=== PATIENT | female | born 1965 ===

== ENCOUNTER 2018-12-28 19:41 | Inpatient (IN) | payer OTHER ==
--- NOTE | 2018-12-28 20:06 | PDOC ---
History of Present Illness <Ava Mack - Last Filed: 12/28/18 23:56> - General History Source: Detention Records Exam Limitations: Language Barrier - History of Present Illness Initial Comments: 12/28/18 21:44 Noreen Copeland 53yF w PMHx Aguero syndrome, intellectual disability, malignant colon neoplasm s/p colostomy, T2DM, CKD presenting from [facility] with lethargy. Could not get history d/t pt non-communicative. Per charge nurse, noticed reduced activity today at halfway. Given tylenol for temp 100.8 and pain at front of L lower leg. Denied dyspnea, urinary/bowel changes. <Jay Coles - Last Filed: 12/29/18 01:53> - General Chief Complaint: Lightheaded Stated Complaint: DIZZINESS Time Seen by Provider: 12/28/18 20:05 Past History <Ava Mack - Last Filed: 12/28/18 23:56> <Jay Coles - Last Filed: 12/29/18 01:53> - Past Medical History Allergies/Adverse Reactions: Allergies Allergy/AdvReac Type Severity Reaction Status Date / Time azithromycin Allergy Verified 12/28/18 20:24 Penicillins Allergy Verified 12/28/18 20:24 Home Medications: Ambulatory Orders Acetaminophen [Tylenol] 650 mg PO QID 12/28/18 Brimonidine Tartrate [Alphagan 0.15% -] 1 drop OS DAILY 12/28/18 Cholecalciferol (Vitamin D3) [Vitamin D3] 1,000 unit PO DAILY 12/28/18 Clonazepam [Klonopin] 1 mg PO BID 12/28/18 Clotrimazole/Betamet Diprop [Lotrisone Cream (Small Tube)] 1 applic TP BID 12/28 Dorzolamide HCl [Trusopt 2%] 1 drop OD DAILY 12/28/18 Duloxetine HCl [Cymbalta -] 30 mg PO BID 12/28/18 Famotidine [Acid Controller] 10 mg PO HS 12/28/18 Folic Acid 1 mg PO DAILY 12/28/18 Golimumab [Simponi] 0.5 ml SQ DAILY 12/28/18 Hydrocortisone 2.5% Topical Cr [Anusol 2.5% Hc Cream -] 1 applic RC BID Hydrocortisone 2.5% Topical Cr [Anusol 2.5% Hc Cream -] 1 applic RC BID Ketoconazole 2% Shampoo [Nizoral 2% Shampoo -] 1 applic TP Q72H 12/28/18 Lamotrigine [Lamotrigine ER] 100 mg PO BID 12/28/18 Methenamine Hippurate [Hiprex [Nf] -] 1 gm PO BID 12/28/18 Olanzapine [Zyprexa] 20 mg PO HS 12/28/18 Omeprazole 20 mg PO BID 12/28/18 Oxcarbazepine 300 mg PO HS 12/28/18 Oxcarbazepine 600 mg PO DAILY 12/28/18 Oxybutynin Chloride [Oxybutynin Chloride ER] 5 mg PO DAILY 12/28/18 Sevelamer Carbonate 800 mg PO TID 12/28/18 Review of Systems - Review of Systems Able to Perform ROS?: No (non-communicable) <Jay Coles - Last Filed: 12/29/18 01:53> *Physical Exam - Vital Signs Last Vital Signs Temp Pulse Resp BP Pulse Ox 101.5 F H 100 H 20 96/62 100 12/28/18 20:42 12/28/18 20:03 12/28/18 20:03 12/28/18 20:03 12/28/18 21:00 <Ava Mack - Last Filed: 12/28/18 23:56> - Physical Exam HEENT: positive: TMs Normal, Pharynx Normal, Orbits (proptosis bilaterally, no orbit tenderness), Other (dry scaly rash over nares, ears bilaterally, L pupil 4mm, responsive to light / R pupil dilated 6mm, fixed). negative: Normal Voice (incomprehensible words), Pale Conjunctivae, Scleral Icterus (R), Scleral Icterus (L), Pharyngeal Erythema, Tonsillar Exudate, Tonsillar Erythema, Nasal Congestion, Rhinorrhea, TM Bulging, TM Dull, TM Erythema, Lesions, Excessive drooling, Thrush Neck: positive: Supple. negative: Tender, Rigid Respiratory/Chest: positive: Lungs Clear, Normal Breath Sounds. negative: Chest Tender, Respiratory Distress, Crackles, Rales, Rhonchi, Stridor, Wheezing Cardiovascular: positive: Regular Rhythm, Regular Rate, S1, S2. negative: Edema , Murmur Gastrointestinal/Abdominal: positive: Normal Bowel Sounds, Flat, Soft, Other ( eczematous rash lower abdomen w defined borders, ileostomy bag in place w/o leakage). negative: Tender, Organomegaly, Distended, Guarding Extremity: positive: Other (circular erythematous rash w raised borders L arm) Integumentary: positive: Warm Neurologic: positive: Respond to painful stimul, Disoriented, Other (opens eyes to command, can follow simple commands). negative: marble machine tender II-XII NML intact, Alert (alert to name, location) <Jay Coles - Last Filed: 12/29/18 01:53> ED Treatment Course - LABORATORY CBC & Chemistry Diagram: 12/28/18 20:15 12/28/18 20:15 - ADDITIONAL ORDERS Additional order review: Laboratory Results 12/28/18 12/28/18 12/28/18 21:15 20:50 20:15 PT with INR 15.20 H INR 1.28 H PTT (Actin FS) 29.7 Sodium Potassium Chloride Carbon Dioxide Anion Gap BUN Creatinine Est GFR (CKD-EPI)AfAm Est GFR (CKD-EPI)NonAf Random Glucose Lactic Acid 0.7 Calcium Total Bilirubin AST ALT Alkaline Phosphatase Creatine Kinase Troponin I Total Protein Albumin Urine Color Yellow Urine Appearance Turbid Urine pH 6.0 Ur Specific Rogers 1.014 Urine Protein 3+ H Urine Glucose (UA) Negative Urine Ketones Negative Urine Blood 3+ H Urine Nitrite Negative Urine Bilirubin Negative Urine Urobilinogen 0.2 Ur Leukocyte Esterase 3+ H Urine WBC (Auto) 648 Urine RBC (Auto) 65 Urine Casts (Auto) 16 U Pathogenic Cast Auto None seen U Epithel Cells (Auto) 2.6 Urine Bacteria (Auto) 17.6 12/28/18 12/28/18 20:15 20:15 PT with INR INR PTT (Actin FS) Sodium 137 Potassium 4.3 Chloride 106 Carbon Dioxide 23 Anion Gap 8 BUN 31.3 H Creatinine 1.6 H Est GFR (CKD-EPI)AfAm 42.20 Est GFR (CKD-EPI)NonAf 36.41 Random Glucose 138 H Lactic Acid Calcium 9.4 Total Bilirubin 0.4 AST 7 L ALT 10 L Alkaline Phosphatase 123 H Creatine Kinase 25 L Troponin I < 0.05 Total Protein 6.5 Albumin 2.7 L Urine Color Urine Appearance Urine pH Ur Specific Rogers Urine Protein Urine Glucose (UA) Urine Ketones Urine Blood Urine Nitrite Urine Bilirubin Urine Urobilinogen Ur Leukocyte Esterase Urine WBC (Auto) Urine RBC (Auto) Urine Casts (Auto) U Pathogenic Cast Auto U Epithel Cells (Auto) Urine Bacteria (Auto) 12/28/18 20:15 RBC 3.22 L MCV 89.3 MCHC 33.2 RDW 12.9 MPV 8.7 Neutrophils % 84.4 H Lymphocytes % 9.1 Monocytes % 6.2 Eosinophils % 0.2 Basophils % 0.1 - RADIOLOGY Radiology Studies Ordered: Category Date Time Status ORBIT CT W/O CONTRAST [CT] Stat CT Scan 12/28/18 20:44 Taken CHEST X-RAY PORTABLE* [RAD] Stat Radiology 12/28/18 20:44 Taken - Medications Given in the ED: ED Medications Discontinued Medications Generic Name Dose Route Start Last Admin Trade Name Freq PRN Reason Stop Dose Admin Fentanyl 25 mcg 12/28/18 23:28 12/28/18 23:53 Sublimaze Injection - IVPUSH 12/28/18 23:29 25 mcg ONCE ONE Administration Levofloxacin 750 mg in 150 mls @ 100 mls/hr 12/28/18 21:04 12/28/18 21:21 Levaquin 750 Mg Premixed Ivpb - IVPB 12/28/18 22:33 100 mls/hr ONCE ONE Administration Protocol Famotidine/Sodium Chloride 20 mg in 50 mls @ 100 mls/hr 12/28/18 21:37 23:53 Pepcid 20 Mg Premixed Ivpb - IVPB 12/28/18 22:06 100 mls/hr ONCE ONE Administration Ibuprofen 600 mg 12/28/18 20:23 12/28/18 20:31 Motrin - PO 12/28/18 20:24 600 mg ONCE ONE Administration Sodium Chloride 1,000 ml 12/28/18 20:45 12/28/18 20:50 Normal Saline - IV 12/28/18 20:46 1,000 ml ONCE ONE Administration Sodium Chloride 1,000 ml 12/28/18 21:37 12/28/18 21:52 Normal Saline - IV 12/28/18 21:38 1,000 ml ONCE ONE Administration Sodium Chloride 1,000 ml 12/28/18 23:31 12/28/18 23:53 Normal Saline - IV 12/28/18 23:32 1,000 ml ONCE ONE Administration <Ava Mack - Last Filed: 12/28/18 23:56> - LABORATORY CBC & Chemistry Diagram: 12/28/18 20:15 12/28/18 20:15 <Jay Coles - Last Filed: 12/29/18 01:53> Medical Decision Making - Medical Decision Making 12/28/18 21:05 sepsis workup - CBC CMP trop lactate UA CXR EKG 4L NC for hypoxia levaquin (penicillin allergy), 1L NC straight cathed for urine 21:38 recheck HR 90, BP 59/30, started another 1L NS UA shows 3+ leuk est, blood, protein - UTI Cr 1.6 - KIRAN, WBC 12 trop neg, lactate 0.7 EKG normal sinus rhythm CXR shows cardiomegaly CT orbit read pending Noreen Copeland 53yF w PMHx Aguero, CKD presenting with lethargy. Given 2L NC Admit for sepsis 2/2 UTI, KIRAN. Given levaquin, motrin for fever 21:38 recheck HR 90, BP 59/30, started another 1L NS Noticed Pt pulled out PIV after 1L NS given at 23:00. Repeat BP 50/30. Given difficulty venous access and urgent hypotension, R tibial IO placed at 23:15, giving 2nd L NS. 2nd PIV placed. Repeat BP 80/50. Given 25 fentanyl for pain. Repeat BP 12:10 almost done 100/50. Admit to ICU for sepsis 2/2 UTI, KIRAN, hypotension. Consulted ICU for continued hypotension 01:20 Bp down to 73/41, ordered 3rd L NS 01:[address] Alston, repeat BP 90/60 after 3rd L NS. ICU will reassess pt BP in 30min, decided whether ICU admit or not if BP fluid responsive to boluses. <Jay Coles - Last Filed: 12/29/18 01:53> *DC/Admit/Observation/Transfer - Discharge Dispostion Decision to Admit order: Yes <Ava Mack - Last Filed: 12/28/18 23:56> <Jay Coles - Last Filed: 12/29/18 01:53> Diagnosis at time of Disposition: Sepsis Qualifiers: Sepsis type: sepsis due to unspecified organism Sepsis acute organ dysfunction status: with acute organ dysfunction Severe sepsis acute organ dysfunction type : acute renal failure Acute renal failure type: unspecified Severe sepsis shock status: unspecified Qualified Code(s): A41.9 - Sepsis, unspecified organism UTI (urinary tract infection) Qualifiers: Urinary tract infection type: site unspecified Hematuria presence: without hematuria Qualified Code(s): N39.0 - Urinary tract infection, site not specified Hypotension Qualifiers: Hypotension type: unspecified hypotension type Qualified Code(s): I95.9 - Hypotension, unspecified - Discharge Dispostion Condition at time of disposition: Guarded
[2018-12-28] MEDS ORDERED: IBUPROFEN 600 MG TABLET (FP) PO ONE ×2 (20:23→20:27)
[2018-12-28] MEDS ORDERED: SODIUM CHLORIDE 0.9% 500 ML INFUS.BAG IV ONE ×3 (20:45→23:31)
[2018-12-28 21:19] LABS: BASO % 0.1 % (0-2.0); EOS % 0.2 % (0-4.5); HEMATOCRIT 28.8 % (32.4-45.2); HEMOGLOBIN 9.6 GM/dL (10.7-15.3); LYMPH % 9.1 % (8-40); MCH 29.7 pg (25.7-33.7); MCHC 33.2 g/dl (32.0-36.0); MEAN CELL VOLUME 89.3 fl (80-96); MEAN PLT VOLUME 8.7 fl (7.5-11.1); MONO % 6.2 % (3.8-10.2); NEUT % 84.4 % (42.8-82.8); PLATELET COUNT 227 K/MM3 (134-434); RBC 3.22 M/mm3 (3.60-5.2); RDW 12.9 % (11.6-15.6); WHITE BLOOD COUNT 12.9 K/mm3 (4.0-10.0)
[2018-12-28] MEDS ORDERED: FAMOTIDINE 20 MG/50 ML IVPB 20 MG/50 ML MG IVPB ONE ×2 (21:37→23:40)
[2018-12-28] MEDS ORDERED: ACETAMINOPHEN 1000 MG/100 ML VIAL (NON FORMULARY) IVPB ONE (21:37)
[2018-12-28 21:41] LABS: INR 1.28 (0.83-1.09); PROTHROMBIN TIME (PATIENT) 15.2 SEC (9.7-13.0)
[2018-12-28 21:42] LABS: ALBUMIN 2.7 g/dl (3.4-5.0); BILIRUBIN,TOTAL 0.4 mg/dL (0.2-1); BLOOD UREA NITROGEN 31.3 mg/dL (7-18); CALCIUM 9.4 mg/dL (8.5-10.1); CREATININE 1.6 mg/dL (0.55-1.3); POTASSIUM 4.3 mmol/L (3.5-5.1); TOT PROT 6.5 g/dl (6.4-8.2)
[2018-12-28 21:44] LABS: ACTIVATED PTT 29.7 SECONDS (25.2-36.5)
[2018-12-28 21:48] LABS: EPI CELLS 2.6 /HPF (0-5/HPF); HYALINE CASTS 16 /lpf (0-8); URINE APPEARANCE TURBID; URINE BACTERIA 17.6 /hpf (NEGATIVE); URINE BILIRUBIN NEGATIVE (NEGATIVE); URINE COLOR YELLOW; URINE GLUCOSE (UA) NEGATIVE (NEGATIVE); URINE KETONE NEGATIVE (NEGATIVE); URINE LEUK ESTERASE 3+ (NEGATIVE); URINE NITRITE NEGATIVE (NEGATIVE); URINE PROTEIN 3+ (NEGATIVE); URINE RBC 65 /hpf (0-4); URINE UROBILINOGEN 0.2 mg/dL (0.2-1.0); URINE WBC 648 /hpf (0-5)
--- NOTE | 2018-12-28 22:30 | PDOC ---
Documentation entered by Sera Martin SCRIBE, acting as scribe for Ava Mack MD. Ava Mack MD: This documentation has been prepared by the Mario almodovar Nirvannie, SCRIBE, under my direction and personally reviewed by me in its entirety. I confirm that the documentation accurately reflects all work, treatment, procedures, and medical decision making performed by me. 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 As per EMS, patient is normally awake and alert but , while in the ED she is primarily sleeping upon exam. Allergies: Azithromycin, Penicillin Primary Care Physician: Dr. Deepthi Noguera - Physicial Exam PE: 12/28/18 21:37 GENERAL: +Febrile. Awake, alert, and fully oriented, in no acute distress HEAD: No signs of trauma EYES: Left eye fixed prooptic with irregular pupil. ENT: TM normal inspection, hearing grossly normal, nares patent, oropharynx clear without exudates. NECK: Normal ROM, supple, no lymphadenopathy, JVD, or masses LUNGS: Breath sounds equal, clear to auscultation bilaterally. No wheezes, and no crackles HEART: Tachycardic. no murmurs, rubs or gallops ABDOMEN: +Ileostomy bag in place. +Chronic fungal rash across the majority of the abdominal wall. Soft, nontender, normoactive bowel sounds. No guarding, no rebound. No masses EXTREMITIES: Decreased ROM secondary to chronic weakness. Small satellite fungal rashes on the extremities. NEUROLOGICAL: Cranial nerves II through XII grossly intact. Normal speech SKIN: Dry dyshidrotic skin rash to the face and ears. - Critical Care Time Total Critical Care Time: 45 Critical Care Statement: The care of this patient involved high complexity decision making to prevent further life threatening deterioration of the patient 's condition and/or to evaluate & treat vital organ system(s) failure or risk of failure. - Medical Decision Making 12/28/18 22:27 Pt has elevated creatinine 1.6; she is dehydrated and septic. Pt has a large UTI leuk 3+. She will be admitted to hospitalist SHe received 1L NSS and levaquin and she is on 2nd L NSS 12/28/18 23:30 Pt's left hand IV came out; we replaced it as well as placed an IO line in her. 12/28/18 23:31 BP is 87/57 at this time. 12/28/18 23:35 EXAM: ORBIT CT W/O CONTRAST HISTORY: Proptosis left eye COMPARISON: None. FINDINGS: Axial CT scan of the orbits was performed utilizing 2.5 mm thick slices from the mid to upper portion of the brain down to just below the maxilla. No intravenous contrast was administered. 2D coronal and sagittal reformatted imaging of the orbits was also performed. The patient is status post left globe lens replacement. The globes are otherwise intact. The distance from the inter-zygomatic line to the anterior surface of the globe is 2.1 cm on the left and 1.9 cm in the right. The right is still within normal limits. The left is borderline proptosis. The distance from the inter-zygomatic line to the posterior sclera is 0.4 cm on the right and 0.2 cm on the left. Both of these parameters indicate proptosis. Further evaluation should be based on clinical grounds, with ophthalmologic evaluation. The extraocular muscles and optic nerves are unremarkable. There is curvilinear calcification seen involving the left lacrimal gland. The finding is nonspecific. Calcifications can be seen in some lacrimal lesions. Again, ophthalmologic consultation is recommended. No other intra-or extraconal pathology is seen. The retrobulbar fat planes are preserved. Edematous changes are noted involving the nasal turbinates bilaterally, right greater than left. There is significant right-sided nasal septum deviation, with near occlusion of the right nasal cavity. Tiny loose osseous bodies are identified anterior to each condylar process of the mandible. There is also some flattening/deformity of the bilateral mandibular condyles. This all indicates degenerative changes. Further evaluation of the TMJ's can be made with MRI and if clinically warranted. No other soft tissue facial abnormality is seen. Incidental note is made of a tiny, nonspecific osseous excrescence projecting anteriorly off of the left maxilla. A tiny bone islands are seen involving the right maxilla. The visualized brain parenchyma is unremarkable. IMPRESSION: 1. Evaluation of the inter-zygomatic line to the anterior surface of each globe reveals borderline proptosis on the left. Evaluation of the inter-zygomatic line to the posterior surface of the sclera indicates bilateral proptosis. Further evaluation should be based on clinical grounds, for ophthalmologic evaluation. 2. Curvilinear calcification along the left lacrimal gland. The finding is nonspecific and can be seen in some lacrimal lesions. Again, ophthalmologic consultation is recommended. 3. Sinus/nasal disease, as described above. 4. Degenerative changes involving the mandibular condyles bilaterally. Further evaluation of the TMJ's can be made with MRI and if clinically warranted. One or more of the following dose reduction techniques were used: automated exposure control, adjustment of the mA and/or kV according to patient size, use of iterative reconstructive technique. Read by: Toi Biswas MD 12/29/18 05:21 Central line placed in the right IJ; pt placed on pressors -- initially dopamine peripherally; then norepi once the central steve was attained. Pt went to the ICU for admission Heart Score/ECG Review - ECG Intrepretation Rhythm: Regular Rhythm - [place]: Normal - P and ID Delta Wave(s) Present: No WPW: No - ST and T Early Repolarization: No Flattened T Waves: No - ECG Impressions Ischemic Changes: No Comment:: 12/28/18 21:35 Q waves inferior leads.
--- NOTE | 2018-12-28 23:00 | PN ---
Teaching Attending Note Name of Resident: Stephanie Chavez ATTENDING PHYSICIAN STATEMENT I saw and evaluated the patient. I reviewed the resident's note and discussed the case with the resident. I agree with the resident's findings and plan as documented. 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 As per EMS, patient is normally awake and alert but, while in the ER she is primarily sleeping upon examination. Could not get history from patient because she is non- communicative. Per charge nurse, they noticed reduced activity today at [facility]isted. Given tylenol for temperature of 100.8 and pain at front of L lower leg. Got fentanyl in the ER. Denied dyspnea, urinary/bowel changes. OBJECTIVE: Somnolent but arousable Vital Signs Period Temp Pulse Resp BP Sys/Lombardi Pulse Ox Last 24 Hr 100.6 F-101.5 F 100 20 96/62 94-100 HEENT: No Jaundice, eye redness or discharge, proptosis left eye, left pupil not responsive. Normocephalic, atraumatic. External ears are normal; No nasal discharge. Neck: Supple, nontender. No palpable adenopathy or thyromegaly. No JVD Chest: Good effort. Clear to auscultation and percussion. Heart: Regular. No S3, rub or murmur Abdomen: Not distended; colostomy bag in place; rash on abdomen, soft, nontender and no HSM. No rebound or guarding. Normal bowel sounds. Ext: Peripheral pulses intact. No leg edema. Skin: Warm and dry. No petechiae; rash on abdomen and limbs; no ecchymosis. Neuro: Somnolent but arousble. Unable to follow commands. Sensation grossly intact in all four extremities and DTR are symmetric. Psych: Unable to assess. Home Medications Medication Instructions Recorded Acetaminophen [Tylenol] 650 mg PO QID 12/28/18 Brimonidine Tartrate [Alphagan 1 drop OS DAILY 12/28/18 0.15% -] Cholecalciferol (Vitamin D3) 1,000 unit PO DAILY 12/28/18 [Vitamin D3] Clonazepam [Klonopin] 1 mg PO BID 12/28/18 Clotrimazole/Betamet Diprop 1 applic TP BID 12/28/18 [Lotrisone Cream (Small Tube)] Dorzolamide HCl [Trusopt 2%] 1 drop OD DAILY 12/28/18 Duloxetine HCl [Cymbalta -] 30 mg PO BID 12/28/18 Famotidine [Acid Controller] 10 mg PO HS 12/28/18 Folic Acid 1 mg PO DAILY 12/28/18 Golimumab [Simponi] 0.5 ml SQ DAILY 12/28/18 Hydrocortisone 2.5% Topical Cr 1 applic RC BID 12/28/18 [Anusol 2.5% Hc Cream -] Hydrocortisone 2.5% Topical Cr 1 applic RC BID 12/28/18 [Anusol 2.5% Hc Cream -] Ketoconazole 2% Shampoo [Nizoral 1 applic TP Q72H 12/28/18 2% Shampoo -] Lamotrigine [Lamotrigine ER] 100 mg PO BID 12/28/18 Methenamine Hippurate [Hiprex [Nf] 1 gm PO BID 12/28/18 -] Olanzapine [Zyprexa] 20 mg PO HS 12/28/18 Omeprazole 20 mg PO BID 12/28/18 Oxcarbazepine 300 mg PO HS 12/28/18 Oxcarbazepine 600 mg PO DAILY 12/28/18 Oxybutynin Chloride [Oxybutynin 5 mg PO DAILY 12/28/18 Chloride ER] Sevelamer Carbonate 800 mg PO TID 12/28/18 Abnormal Lab Results 12/28/18 12/28/18 12/28/18 20:15 20:15 20:15 WBC 12.9 H RBC 3.22 L Hgb 9.6 L Hct 28.8 L Absolute Neuts (auto) 10.9 H Neutrophils % 84.4 H PT with INR INR BUN 31.3 H Creatinine 1.6 H Random Glucose 138 H AST 7 L ALT 10 L Alkaline Phosphatase 123 H Creatine Kinase 25 L Albumin 2.7 L Urine Protein Urine Blood Ur Leukocyte Esterase 12/28/18 12/28/18 20:50 21:15 WBC RBC Hgb Hct Absolute Neuts (auto) Neutrophils % PT with INR 15.20 H INR 1.28 H BUN Creatinine Random Glucose AST ALT Alkaline Phosphatase Creatine Kinase Albumin Urine Protein 3+ H Urine Blood 3+ H Ur Leukocyte Esterase 3+ H ASSESSMENT AND PLAN: 1. Septic shock due to UTI - Patient hypotensive despite several liters of IV NS. Being started on Dopamine and transferred to the ICU. Will treat with IV Meropenem pending culture report and continue IV NS and monitor urine output. CXR is rotated with possible RML atelectasis. EKG shows NSR with no significant new ST-T wave changes. Report of CT scan of the orbit: "a). Evaluation of the inter-zygomatic line to the anterior surface of each globe reveals borderlineproptosis on the left. Evaluation of the inter- zygomatic line to the posterior surface of the sclera indicates bilateral proptosis. Further evaluation should be based on clinical grounds, for ophthalmologic evaluation. b). Curvilinear calcification along the left lacrimal gland. The finding is nonspecific and can be seen in some lacrimal lesions. Again, ophthalmologic consultation is recommended." Will refer to opthalmology. 2. Hypoalbuminemia - Possibly due to combined effects of malnutrition and inflammation associated with comorbid chronic conditions. Will ensure adequate dietary protein intake and also consult booster pump oiler. 3. CKD - Has risk factors for CKD. Will consult nephrology and avoid nephrotoxic agents such as NSAIDS, aminoglycosides, contrast dyes and certain Alternative medicine products. 4. Anemia - Likely multifactorial including renal anemia. Will do basic anemia work up including serial stool guaiacs, reticulocyte count and iron studies. Would benefit from Procrit therapy once iron replete. 5. Obesity Counseled on the risks associated with obesity. Will provide patient all the necessary assistance, counseling and positive reinforcement to facilitate weight loss. Consult booster pump oiler. 6. DVT prophylaxis - Heparin 5000u sq tid. 7. Advance directives - Full code
[2018-12-29] MEDS ORDERED: SODIUM CHLORIDE 0.9% 500 ML INFUS.BAG IV ONE (01:01)
[2018-12-29] MEDS ORDERED: DOPAMINE 400 MG/D5W - 400,000 MCG/250 ML INFUS.BAG IVPB SCH (02:15)
[2018-12-29] MEDS ORDERED: DOPAMINE 400 MG/D5W - 400,000 MCG/250 ML INFUS.BAG IVPB ONE (02:19)
--- NOTE | 2018-12-29 02:23 | CONSULT ---
Consultation: REQUESTING PROVIDER: Dr. Mack CONSULT REQUEST: We have been asked to medically evaluate this patient for septic shock secondary to UTI. 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 At baseline, the patient is alert and awake. In the ED, the patient was noted by staff to be lethargic and was not able to communicate. Upon examination, the patient was oriented to self and stated that she was sick but unable to give further details. Asking where she was and what her blood pressure was. UA showed 3+ LE, 648 WBC, 17 bacteria and was given Levaquin. Fluids were started and after 3L of fluids, the patient's blood pressure continued to be low with MAPs in the 50s-60s. Central line placed and vasopressors started. In ICU, patient stated that she felt weak and had some shortness of breath and chills. She said that that earlier she felt nauseous but currently denied any feelings of nausea or vomiting. She denied chest pain, abdominal pain, fever, numbness, tingling, headaches. REVIEW OF SYSTEMS: CONSTITUTIONAL: Chills No Fever, CARDIOVASCULAR: No Chest Pain, No Dyspnea on Exertion, No Orthopnea, No Edema, No Palpitations RESPIRATORY: Shortness of Breath, No Cough, No Sputum, No Wheezing, No Dyspnea GASTROINTESTINAL: Nausea, No Vomiting, No Diarrhea, No Constipation, GENITOURINARY: Urinary Frequency, No Urinary Incontinence, No Urgency, No Flank Pain, No Urinary Flow Changes, No Hesitancy INTEGUMENTARY: Pruritic Skin Lesions, No Breast/Skin Changes, NEUROLOGIC: Weakness, No Numbness,, No Dizziness, No Headache, HEMATOLOGIC: No Bruising, No Bleeding, No Lymphadenopathy PHYSICAL EXAMINATION Vital Signs - 24 hr 12/28/18 12/28/18 12/28/18 20:03 20:42 21:00 Temperature 100.6 F H 101.5 F H Pulse Rate 100 H Pulse Rate [ Left Radial] Respiratory 20 Rate Blood Pressure 96/62 Blood Pressure [Right Arm] O2 Sat by Pulse 94 L 100 100 Oximetry (%) 12/29/18 12/29/18 01:20 01:47 Temperature 98.4 F Pulse Rate Pulse Rate [ 70 70 Left Radial] Respiratory 18 20 Rate Blood Pressure Blood Pressure 71/43 L 91/66 [Right Arm] O2 Sat by Pulse 99 99 Oximetry (%) GENERAL: Lethargic, intermittently wakes up. Oriented to self. Able to follow basic commands and answer simple questions EYES: Pupils equal, round and reactive to light, extraocular movements intact, propoptosis of the left eye LUNGS: Breath sounds equal, clear to auscultation bilaterally. No wheezes, and no crackles. No accessory muscle use. HEART: Regular rate and rhythm, normal S1 and S2 without murmur, rub or gallop. ABDOMEN: Soft, nontender, not distended, normoactive bowel sounds, no guarding, no rebound, no masses. MUSCULOSKELETAL: Normal range of motion at all joints. No bony deformities or tenderness. UPPER EXTREMITIES: 2+ pulses, warm, well-perfused. No cyanosis. No peripheral edema. LOWER EXTREMITIES: 2+ pulses, warm, well-perfused. No peripheral edema. NEUROLOGICAL: Follows basic commands, unable to assess full neurological exam PSYCHIATRIC: Cooperative. SKIN: Warm, dry, normal turgor, sporadic excoriations, dermatitis rash on face, ear, upper and lower extremities noted. Laboratory Results - last 24 hr 12/28/18 12/28/18 12/28/18 20:15 20:15 20:15 WBC 12.9 H RBC 3.22 L Hgb 9.6 L Hct 28.8 L MCV 89.3 MCH 29.7 MCHC 33.2 RDW 12.9 Plt Count 227 MPV 8.7 Absolute Neuts (auto) 10.9 H Neutrophils % 84.4 H Lymphocytes % 9.1 Monocytes % 6.2 Eosinophils % 0.2 Basophils % 0.1 Nucleated RBC % 0 PT with INR INR PTT (Actin FS) Sodium 137 Potassium 4.3 Chloride 106 Carbon Dioxide 23 Anion Gap 8 BUN 31.3 H Creatinine 1.6 H Est GFR (CKD-EPI)AfAm 42.20 Est GFR (CKD-EPI)NonAf 36.41 Random Glucose 138 H Lactic Acid Calcium 9.4 Total Bilirubin 0.4 AST 7 L ALT 10 L Alkaline Phosphatase 123 H Creatine Kinase 25 L Troponin I < 0.05 Total Protein 6.5 Albumin 2.7 L Urine Color Urine Appearance Urine pH Ur Specific [place] Urine Protein Urine Glucose (UA) Urine Ketones Urine Blood Urine Nitrite Urine Bilirubin Urine Urobilinogen Ur Leukocyte Esterase Urine WBC (Auto) Urine RBC (Auto) Urine Casts (Auto) U Pathogenic Cast Auto U Epithel Cells (Auto) Urine Bacteria (Auto) 12/28/18 12/28/18 12/28/18 20:15 20:50 21:15 WBC RBC Hgb Hct MCV MCH MCHC RDW Plt Count MPV Absolute Neuts (auto) Neutrophils % Lymphocytes % Monocytes % Eosinophils % Basophils % Nucleated RBC % PT with INR 15.20 H INR 1.28 H PTT (Actin FS) 29.7 Sodium Potassium Chloride Carbon Dioxide Anion Gap BUN Creatinine Est GFR (CKD-EPI)AfAm Est GFR (CKD-EPI)NonAf Random Glucose Lactic Acid 0.7 Calcium Total Bilirubin AST ALT Alkaline Phosphatase Creatine Kinase Troponin I Total Protein Albumin Urine Color Yellow Urine Appearance Turbid Urine pH 6.0 Ur Specific [place] 1.014 Urine Protein 3+ H Urine Glucose (UA) Negative Urine Ketones Negative Urine Blood 3+ H Urine Nitrite Negative Urine Bilirubin Negative Urine Urobilinogen 0.2 Ur Leukocyte Esterase 3+ H Urine WBC (Auto) 648 Urine RBC (Auto) 65 Urine Casts (Auto) 16 U Pathogenic Cast Auto None seen U Epithel Cells (Auto) 2.6 Urine Bacteria (Auto) 17.6 Active Medications Generic Name Dose Route Start Last Admin Trade Name Freq PRN Reason Stop Dose Admin Dopamine HCl/Dextrose 400,000 mcg in 250 mls @ 21.262 mls/hr 12/29/18 02:15 Dopamine 400 Mg/D5w - IVPB TITR DEBRA Protocol 5 MCG/KG/MIN ASSESSMENT/PLAN: Noreen Copeland is a 53 year old female with a past medical history of Turners Syndrome, Schizoaffective disorder, 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 Septic Shock secondary to UTI T2DM CKD Anemia Proptosis NEUROLOGIC - lethargic, unclear of true baseline - continue home seizure medications lamotrigine and oxcarbamazepine CARDIOLOGY - septic shock refractory to 3L boluses - giving 500cc bolus in ICU - central line placed - dopamine vasopressor started in ED - changed to Levophed, titrate as tolerated to maintain MAP>65 - CVP monitoring - troponin negative, repeat for AM labs - lactic 0.7, repeat for AM labs - EKG showing sinus rhythm, age indeterminate inferior infarct (q waves),QTc 428 - echo ordered RESPIRATORY - satting well on NC, continue to monitor RENAL - CRE 1.6, unclear of baseline, hx of CKD - fluids given - recheck in AM - renal/bladder U/S - golimumab to start 01/12 for kidney failure - consider renal consult GASTROINTESTINAL - FOBT ordered - protonix 40mg daily GENITOURINARY - home hippurate - home oxybutynin INFECTIOUS DISEASE - WBC 12.9, febrile, refractory to fluids, septic shock - allergic to PCN and azithromycin - received Levaquin in ED - start meropenem 1g q12h, caution with use as patient has seizure disorder, give after patient has received home AEDs - ID consult - Blood cultures - urine cultures ENDOCRINE - BGM q6h - ISS q6h HEMATOLOGY - anemia, Hgb 9.6, unclear of baseline - FOBT ordered - iron studies, reticulocyte count - recheck in AM MUSCULOSKELETAL - CT orbits showing borderline proptosis of L eye, curvilinear calcification along left lacrimal gland - has prosthetic R eye - restart home eye drops - opthalmology consultation placed - hydrocortisone cream to nose and bilateral ears F/E/N - received 3L of NS in ED, given 1 bolus 500cc in ICU - continue to monitor electrolytes and replete as necessary - NPO LINES - L hand inserted 12/28 PROPHYLAXIS - heparin 5000 units subq tid CODE - full code DISPO - continue to monitor in ICU Thank you for this consultative opportunity. AMRIT SMART DO - PGY-1 INTERNAL MEDICINE Visit type - Emergency Visit Emergency Visit: Yes ED Registration Date: 12/28/18 Care time: The patient presented to the Emergency Department on the above date and was hospitalized for further evaluation of their emergent condition. - New Patient This patient is new to me today: Yes Date on this admission: 12/29/18 - Critical Care Critical Care patient: Yes Total Critical Care Time (in minutes): 35 Critical Care Statement: The care of this patient involved high complexity decision making to prevent further life threatening deterioration of the patient 's condition and/or to evaluate & treat vital organ system(s) failure or risk of failure.
--- NOTE | 2018-12-29 02:44 | HP ---
CHIEF COMPLAINT: lethargy PCP: Dr. Deepthi Noguera HISTORY OF PRESENT ILLNESS: 53 y.o. F PMH Turners syndrome, intellectual disability & delay, malignant colon CA s/p colostomy placement, DM type 2, CKD stage IIIb, schizoaffective d/ o presented from [place] with lethargy. Pt is nonverbal at baseline. According to NF pt was found to be more somnolent with decreased level of activity from baseline. She was [facility] tylenol at the [facility] for a temp of 100.8F. Nurse denied recent changes to urinary or bowel habits. ER course was notable for: (1) Febrile 101.5F (2) BP 71/43; now s/p 4 boluses NS (3) WBC 12.9 Recent Travel: none PAST MEDICAL HISTORY: as above PAST SURGICAL HISTORY: colostomy placement Social History: no toxic habits X3 Smoking: Alcohol: Drugs: Family History: Allergies azithromycin Allergy (Verified 12/28/18 20:24) Penicillins Allergy (Verified 12/28/18 20:24) HOME MEDICATIONS: Home Medications Medication Instructions Recorded Acetaminophen [Tylenol] 650 mg PO QID 12/28/18 Brimonidine Tartrate [Alphagan 1 drop OS DAILY 12/28/18 0.15% -] Cholecalciferol (Vitamin D3) 1,000 unit PO DAILY 12/28/18 [Vitamin D3] Clonazepam [Klonopin] 1 mg PO BID 12/28/18 Clotrimazole/Betamet Diprop 1 applic TP BID 12/28/18 [Lotrisone Cream (Small Tube)] Dorzolamide HCl [Trusopt 2%] 1 drop OD DAILY 12/28/18 Duloxetine HCl [Cymbalta -] 30 mg PO BID 12/28/18 Famotidine [Acid Controller] 10 mg PO HS 12/28/18 Folic Acid 1 mg PO DAILY 12/28/18 Golimumab [Simponi] 0.5 ml SQ DAILY 12/28/18 Hydrocortisone 2.5% Topical Cr 1 applic RC BID 12/28/18 [Anusol 2.5% Hc Cream -] Hydrocortisone 2.5% Topical Cr 1 applic RC BID 12/28/18 [Anusol 2.5% Hc Cream -] Ketoconazole 2% Shampoo [Nizoral 1 applic TP Q72H 12/28/18 2% Shampoo -] Lamotrigine [Lamotrigine ER] 100 mg PO BID 12/28/18 Methenamine Hippurate [Hiprex [Nf] 1 gm PO BID 12/28/18 -] Olanzapine [Zyprexa] 20 mg PO HS 12/28/18 Omeprazole 20 mg PO BID 12/28/18 Oxcarbazepine 300 mg PO HS 12/28/18 Oxcarbazepine 600 mg PO DAILY 12/28/18 Oxybutynin Chloride [Oxybutynin 5 mg PO DAILY 12/28/18 Chloride ER] Sevelamer Carbonate 800 mg PO TID 12/28/18 REVIEW OF SYSTEMS CONSTITUTIONAL: Absent: fever, chills, diaphoresis, generalized weakness, malaise, loss of appetite, weight change HEENT: Absent: rhinorrhea, nasal congestion, throat pain, throat swelling, difficulty swallowing, mouth swelling, ear pain, eye pain, visual changes CARDIOVASCULAR: Absent: chest pain, syncope, palpitations, irregular heart rate, lightheadedness , peripheral edema RESPIRATORY: Absent: cough, shortness of breath, dyspnea with exertion, orthopnea, wheezing, stridor, hemoptysis GASTROINTESTINAL: Absent: abdominal pain, abdominal distension, nausea, vomiting, diarrhea, constipation, melena, hematochezia GENITOURINARY: Absent: dysuria, frequency, urgency, hesitancy, hematuria, flank pain, genital pain MUSCULOSKELETAL: Absent: myalgia, arthralgia, joint swelling, back pain, neck pain SKIN: Absent: rash, itching, pallor HEMATOLOGIC/IMMUNOLOGIC: Absent: easy bleeding, easy bruising, lymphadenopathy, frequent infections ENDOCRINE: Absent: unexplained weight gain, unexplained weight loss, heat intolerance, cold intolerance NEUROLOGIC: Absent: headache, focal weakness or paresthesias, dizziness, unsteady gait, seizure, mental status changes, bladder or bowel incontinence PSYCHIATRIC: Absent: anxiety, depression, suicidal or homicidal ideation, hallucinations. PHYSICAL EXAMINATION Vital Signs - 24 hr 12/28/18 12/28/18 12/28/18 20:03 20:42 21:00 Temperature 100.6 F H 101.5 F H Pulse Rate 100 H Pulse Rate [ Left Radial] Respiratory 20 Rate Blood Pressure 96/62 Blood Pressure [Right Arm] O2 Sat by Pulse 94 L 100 100 Oximetry (%) 12/29/18 12/29/18 01:20 01:47 Temperature 98.4 F Pulse Rate Pulse Rate [ 70 70 Left Radial] Respiratory 18 20 Rate Blood Pressure Blood Pressure 71/43 L 91/66 [Right Arm] O2 Sat by Pulse 99 99 Oximetry (%) GENERAL: Pt lying in bed. Not responsive to calling name or painful stimuli. HEENT: Dry skin changes to multiple areas of face and ears. L eye pupil nonreactive to light or accommodation. LUNGS: Breath sounds equal, clear to auscultation bilaterally. No wheezes, and no crackles. No accessory muscle use. HEART: Regular rate and rhythm, normal S1 and S2 without murmur, rub or gallop. ABDOMEN: Soft, nontender, not distended, normoactive bowel sounds, no guarding. Colostomy site C/D/I. Erythematous skin changes present diffusely across abdomen. UPPER EXTREMITIES: 2+ pulses, warm, well-perfused. No cyanosis. No clubbing. No peripheral edema. LOWER EXTREMITIES: 2+ pulses, warm, well-perfused. No calf tenderness. No peripheral edema. Laboratory Results - last 24 hr 12/28/18 12/28/18 12/28/18 20:15 20:15 20:15 WBC 12.9 H RBC 3.22 L Hgb 9.6 L Hct 28.8 L MCV 89.3 MCH 29.7 MCHC 33.2 RDW 12.9 Plt Count 227 MPV 8.7 Absolute Neuts (auto) 10.9 H Neutrophils % 84.4 H Lymphocytes % 9.1 Monocytes % 6.2 Eosinophils % 0.2 Basophils % 0.1 Nucleated RBC % 0 PT with INR INR PTT (Actin FS) Sodium 137 Potassium 4.3 Chloride 106 Carbon Dioxide 23 Anion Gap 8 BUN 31.3 H Creatinine 1.6 H Est GFR (CKD-EPI)AfAm 42.20 Est GFR (CKD-EPI)NonAf 36.41 Random Glucose 138 H Lactic Acid Calcium 9.4 Total Bilirubin 0.4 AST 7 L ALT 10 L Alkaline Phosphatase 123 H Creatine Kinase 25 L Troponin I < 0.05 Total Protein 6.5 Albumin 2.7 L Urine Color Urine Appearance Urine pH Ur Specific [place] Urine Protein Urine Glucose (UA) Urine Ketones Urine Blood Urine Nitrite Urine Bilirubin Urine Urobilinogen Ur Leukocyte Esterase Urine WBC (Auto) Urine RBC (Auto) Urine Casts (Auto) U Pathogenic Cast Auto U Epithel Cells (Auto) Urine Bacteria (Auto) 12/28/18 12/28/18 12/28/18 20:15 20:50 21:15 WBC RBC Hgb Hct MCV MCH MCHC RDW Plt Count MPV Absolute Neuts (auto) Neutrophils % Lymphocytes % Monocytes % Eosinophils % Basophils % Nucleated RBC % PT with INR 15.20 H INR 1.28 H PTT (Actin FS) 29.7 Sodium Potassium Chloride Carbon Dioxide Anion Gap BUN Creatinine Est GFR (CKD-EPI)AfAm Est GFR (CKD-EPI)NonAf Random Glucose Lactic Acid 0.7 Calcium Total Bilirubin AST ALT Alkaline Phosphatase Creatine Kinase Troponin I Total Protein Albumin Urine Color Yellow Urine Appearance Turbid Urine pH 6.0 Ur Specific [place] 1.014 Urine Protein 3+ H Urine Glucose (UA) Negative Urine Ketones Negative Urine Blood 3+ H Urine Nitrite Negative Urine Bilirubin Negative Urine Urobilinogen 0.2 Ur Leukocyte Esterase 3+ H Urine WBC (Auto) 648 Urine RBC (Auto) 65 Urine Casts (Auto) 16 U Pathogenic Cast Auto None seen U Epithel Cells (Auto) 2.6 Urine Bacteria (Auto) 17.6 ASSESSMENT/PLAN: 53 y.o. F PMH Turners syndrome, intellectual disability & delay, malignant colon CA s/p colostomy placement, DM type 2, CKD stage IIIb, schizoaffective d/ o brought to [facility] d/t lethargy #Urosepsis -Hypotensive s/p 4L NS- starting dopamine drip -IV Meropenem; s/p levaquin in ED -F/u blood & urine cultures -UA + 3+ protein, 3+ blood, 3+ LE -Is&Os -EKG NSR -F/u echo -ICU monitoring #L orbital proptosis -CT orbit reviewed: "Evaluation of the inter-zygomatic line to the anterior surface of each globe reveals borderlineproptosis on the left. Evaluation of the inter-zygomatic line to the posterior surface of the sclera indicates bilateral proptosis. Further evaluation should be based on clinical grounds, for ophthalmologic evaluation. b). Curvilinear calcification along the left lacrimal gland. The finding is nonspecific and can be seen in some lacrimal lesions. Again, ophthalmologic consultation is recommended." -F/u optho (Dr. Yip) #DM2 -ISS -BGM #CKD -Avoid nephrotoxic medications -F/u nephro ( #Anemia -F/u iron studies -FOBTs #Schizoaffective disorder -C/w home meds #FEN -Received 4L NS -Trend lytes -NPO #DVT PPX -Heparin 5,000 SQ TID ATTENDING PHYSICIAN STATEMENT I saw and evaluated the patient. I reviewed the resident's note and discussed the case with the resident. I agree with the resident's findings and plan as documented. SUBJECTIVE: OBJECTIVE: ASSESSMENT AND PLAN:
[2018-12-29] MEDS ORDERED: lamoTRIgine 100 MG TABLET (FP) PO ONE (03:08)
[2018-12-29] MEDS ORDERED: OXcarbazepine 300 MG/5 ML 250 ML BULK BOTTLE PO ONE (03:09)
[2018-12-29] MEDS ORDERED: MEROPENEM 1 GM in DEXTROSE 5%-WATER 100 ML IVPB ONE (03:10)
[2018-12-29] MEDS ORDERED: SODIUM CHLORIDE 500 ML IV STA (03:52)
[2018-12-29] MEDS ORDERED: MEROPENEM 1 GM VIAL (RESTRICTED TO ID) IVPB ONE ×2 (04:40→14:08)
[2018-12-29] MEDS ORDERED: DEXTROSE 5%-WATER 100 ML IVPB ONE ×2 (04:40→14:08)
[2018-12-29] MEDS: INSULIN SLIDING SCALE (NOVOLOG) 1 VIAL SQ SCH ×4 (05:36→22:43)
[2018-12-29 06:06] LABS: HEMATOCRIT 27.3 % (32.4-45.2); HEMOGLOBIN 8.9 GM/dL (10.7-15.3); MCH 29.6 pg (25.7-33.7); MCHC 32.6 g/dl (32.0-36.0); MEAN CELL VOLUME 90.8 fl (80-96); MEAN PLT VOLUME 8.5 fl (7.5-11.1); PLATELET COUNT 170 K/MM3 (134-434); RBC 3.01 M/mm3 (3.60-5.2); RDW 13.2 % (11.6-15.6); RETICULOCYTES 2.72 % (0.5-1.5); WHITE BLOOD COUNT 10.4 K/mm3 (4.0-10.0)
[2018-12-29 06:17] LABS: ALBUMIN 2.3 g/dl (3.4-5.0); BILIRUBIN,TOTAL 0.4 mg/dL (0.2-1); BLOOD UREA NITROGEN 31.6 mg/dL (7-18); CALCIUM 8.3 mg/dL (8.5-10.1); CREATININE 1.7 mg/dL (0.55-1.3); MAGNESIUM 1.7 mg/dL (1.8-2.4); PHOSPHOROUS 4.3 mg/dL (2.5-4.9); POTASSIUM 4.1 mmol/L (3.5-5.1); TOT PROT 5.8 g/dl (6.4-8.2)
[2018-12-29] MEDS ORDERED: ACETAMINOPHEN 1000 MG/100 ML VIAL (NON FORMULARY) IVPB ONE (06:41)
--- NOTE | 2018-12-29 08:02 | PN ---
Progress Note (short form) - Note Progress Note: ID consult dictated imp/reccd 53 yo female with Turners syndrome, normal renal funcitn / at the NC- cr 1.1, on SImponi- ?why, chronic itchy rash admitted with fever and hypotension requiring pressors suspect sepsis secondary to UTI pen allergy (rash)/zithromax allergy chronic rash- ?psoriatic arthritis- consider derm eval- why is she on simponi? acute renal insufficiency blind left eye colostomy seizure disorder suggest continue meropenem for now pending cultures watch for seizures dermatology evaluation- continue steroid cream/antifungal cream for now continue iv hydration Problem List - Problems (1) Sepsis Code(s): A41.9 - SEPSIS, UNSPECIFIED ORGANISM Qualifiers: Sepsis type: sepsis due to unspecified organism Sepsis acute organ dysfunction status: with acute organ dysfunction Severe sepsis acute organ dysfunction type: acute renal failure Acute renal failure type: unspecified Severe sepsis shock status: unspecified Qualified Code(s): A41.9 - Sepsis, unspecified organism; R65.20 - Severe sepsis without septic shock; N17.9 - Acute kidney failure, unspecified (2) UTI (urinary tract infection) Code(s): N39.0 - URINARY TRACT INFECTION, SITE NOT SPECIFIED Qualifiers: Urinary tract infection type: site unspecified Hematuria presence: without hematuria Qualified Code(s): N39.0 - Urinary tract infection, site not specified (3) Penicillin allergy Code(s): Z88.0 - ALLERGY STATUS TO PENICILLIN (4) Rash Code(s): R21 - RASH AND OTHER NONSPECIFIC SKIN ERUPTION (5) KIRAN (acute kidney injury) Code(s): N17.9 - ACUTE KIDNEY FAILURE, UNSPECIFIED
[2018-12-29] MEDS ORDERED: NOREPINEPHRINE BITARTRATE 4 MG/4 ML ML IV ONE (09:17)
[2018-12-29] MEDS: DULoxetine HCL 30 MG CAPSULE.DR PO SCH ×2 (09:45→21:53)
[2018-12-29] MEDS: PANTOPRAZOLE 40 MG TABLET (FP) PO SCH (09:45)
[2018-12-29] MEDS: OXcarbazepine 300 MG TABLET (UD) PO SCH (09:45)
[2018-12-29] MEDS: clonazePAM 0.5 MG TABLET PO SCH ×2 (09:45→21:54)
[2018-12-29] MEDS: FOLIC ACID 1 MG TABLET (FP) PO SCH (09:48)
[2018-12-29] MEDS: NOREPINEPHRINE BITARTRATE 4,000 MCG in DEXTROSE 5%-WATER - 496 ML IV SCH (09:51)
--- NOTE | 2018-12-29 09:58 | PN ---
Progress Note, Physician Chief Complaint: ASLEEP, AROUSABLE VERBALLY RESPONDING EVENTS AND NOTES REVIEWED - Current Medication List Current Medications: Active Medications Brimonidine Tartrate (Alphagan 0.15% -) 1 drop OS DAILY [facility] Chlorhexidine Gluconate (Hibiclens For Decolonization -) 1 applic TP HS DEBRA Clonazepam (Klonopin -) 1 mg PO BID DEBRA Clotrimazole (Lotrisone Cream (Small Tube)) 1 applic TP BID DEBRA Dorzolamide HCl (Trusopt 2%) 1 drop OD DAILY [facility] Duloxetine HCl (Cymbalta -) 30 mg PO BID [facility] Folic Acid (Folic Acid -) 1 mg PO DAILY [facility] Heparin Sodium (Porcine) (Heparin -) 5,000 unit SQ TID [facility] Hydrocortisone (Anusol 2.5% Hc Cream -) 1 applic RC BID [facility] Norepinephrine Bitartrate 4, (000 mcg/ Dextrose) 500 mls @ 37.5 mls/hr IV TITR [facility]; Protocol Meropenem 1 gm/ Dextrose 100 mls @ 0 mls/hr IVPB Q12H [facility] Insulin Aspart (Novolog Vial Sliding Scale -) 1 vial SQ Q6H [facility]; Protocol Last Admin: 12/29/18 05:36 Dose: Not Given Mupirocin (Bactroban Ointment (For Decolonization) -) 1 applic NS BID [facility] Stop: 01/03/19 09:59 Non-Formulary Medication (Lamotrigine [Lamotrigine Er]) 100 mg PO BID [facility] Oxcarbazepine (Trileptal -) 300 mg PO HS [facility] Oxcarbazepine (Trileptal -) 600 mg PO DAILY [facility] Pantoprazole Sodium (Protonix -) 40 mg PO ACBK [facility] Sevelamer Carbonate (Renvela -) 800 mg PO TID [facility] Solifenacin (Vesicare -) 5 mg PO DAILY [facility] - Objective Vital Signs: Vital Signs Temperature 98.2 F 12/29/18 08:03 Pulse Rate 86 12/29/18 08:03 Respiratory Rate 28 H 12/29/18 08:03 Blood Pressure 96/60 12/29/18 08:03 O2 Sat by Pulse Oximetry (%) 100 12/29/18 04:00 Constitutional: Yes: Mild Distress Eyes: Yes: Other Cardiovascular: Yes: Regular Rate and Rhythm Respiratory: Yes: Regular, On Nasal O2 Gastrointestinal: Yes: Soft Genitourinary: Yes: Incontinence Musculoskeletal: Yes: Muscle Weakness Edema: No Integumentary: Yes: WNL Wound/Incision: Yes: Clean/Dry Neurological: Yes: Pre-Existing Deficit ...Motor Strength: LLE, RLE Psychiatric: Yes: Other Labs: CBC, BMP 12/29/18 05:30 12/29/18 05:30 INR, PTT INR 1.28 (0.83-1.09) H 12/28/18 20:50 Problem List - Problems (2) Toxic metabolic encephalopathy Code(s): G92 - TOXIC ENCEPHALOPATHY (3) KIRAN (acute kidney injury) Code(s): N17.9 - ACUTE KIDNEY FAILURE, UNSPECIFIED (4) Hypotension Code(s): I95.9 - HYPOTENSION, UNSPECIFIED Qualifiers: Hypotension type: unspecified hypotension type Qualified Code(s): I95.9 - Hypotension, unspecified (5) Sepsis Code(s): A41.9 - SEPSIS, UNSPECIFIED ORGANISM Qualifiers: Sepsis type: sepsis due to unspecified organism Sepsis acute organ dysfunction status: with acute organ dysfunction Severe sepsis acute organ dysfunction type: acute renal failure Acute renal failure type: unspecified Severe sepsis shock status: unspecified Qualified Code(s): A41.9 - Sepsis, unspecified organism; R65.20 - Severe sepsis without septic shock; N17.9 - Acute kidney failure, unspecified (6) UTI (urinary tract infection) Code(s): N39.0 - URINARY TRACT INFECTION, SITE NOT SPECIFIED Qualifiers: Urinary tract infection type: site unspecified Hematuria presence: without hematuria Qualified Code(s): N39.0 - Urinary tract infection, site not specified Assessment/Plan IV FLUIDS AND BP SUPPORT ON NOREPINEPHRINE 02 SUPPORT LABS REVIEWED ON ABX FOR UTI/SEPSIS ID AND PULM CONSULT APPRECIATED CULTURES PENDING DVT PROPHYLAXIS
[2018-12-29] MEDS ORDERED: LAMOTRIGINE 100 MG PO SCH (10:00)
[2018-12-29] MEDS ORDERED: BRIMONIDINE TARTRATE 0.15% OPHTHALMIC 5 ML BOTTLE OS SCH (10:00)
[2018-12-29] MEDS ORDERED: PATIENT'S OWN MEDICATION (NON-FORMULARY) (Clonazepam [Klonopin] 1 MG) PO SCH (10:00)
[2018-12-29] MEDS ORDERED: DORZOLAMIDE 2% HCL OPHTHALMIC SOLUTION 10 ML BOTTLE OD SCH (10:00)
[2018-12-29] MEDS ORDERED: HYDROCORTISONE 2.5% TOPICAL CREAM 30 GM TUBE RC SCH (10:00)
--- NOTE | 2018-12-29 10:08 | PN ---
Physical Exam: SUBJECTIVE: Patient seen and examined at bedside, appeared more alert this morning. Was able to state her name and say she was in the hospital. Currently not on any pressors. OBJECTIVE: Vital Signs Period Temp Pulse Resp BP Sys/Lombardi Pulse Ox Last 24 Hr 97.8 F-101.5 F 65-114 18-28 63-170/37-149 94-100 GENERAL: Lethargic but arousable. Oriented to self. Able to follow basic commands and answer simple questions EYES: Asymmetric pupils L>R, propoptosis of the left eye LUNGS: Breath sounds equal, clear to auscultation bilaterally. No wheezes, and no crackles. No accessory muscle use. HEART: Regular rate and rhythm, normal S1 and S2 without murmur, rub or gallop. ABDOMEN: Soft, nontender, not distended, normoactive bowel sounds, no guarding, no rebound, no masses. MUSCULOSKELETAL: Normal range of motion at all joints. No bony deformities or tenderness. UPPER EXTREMITIES: 2+ pulses, warm, well-perfused. No cyanosis. No peripheral edema. LOWER EXTREMITIES: 2+ pulses, warm, well-perfused. No peripheral edema. NEUROLOGICAL: Follows basic commands, unable to assess full neurological exam PSYCHIATRIC: Cooperative. SKIN: Warm, dry, normal turgor, sporadic excoriations, dermatitis rash on face, ear, upper and lower extremities noted. Laboratory Results - last 24 hr 12/28/18 12/28/18 12/28/18 20:15 20:15 20:15 WBC 12.9 H RBC 3.22 L Hgb 9.6 L Hct 28.8 L MCV 89.3 MCH 29.7 MCHC 33.2 RDW 12.9 Plt Count 227 MPV 8.7 Absolute Neuts (auto) 10.9 H Neutrophils % 84.4 H Lymphocytes % 9.1 Monocytes % 6.2 Eosinophils % 0.2 Basophils % 0.1 Nucleated RBC % 0 Retic Count PT with INR INR PTT (Actin FS) Sodium 137 Potassium 4.3 Chloride 106 Carbon Dioxide 23 Anion Gap 8 BUN 31.3 H Creatinine 1.6 H Est GFR (CKD-EPI)AfAm 42.20 Est GFR (CKD-EPI)NonAf 36.41 POC Glucometer Random Glucose 138 H Lactic Acid Calcium 9.4 Phosphorus Magnesium Iron TIBC Iron Saturation Unsaturated IBC Ferritin Total Bilirubin 0.4 AST 7 L ALT 10 L Alkaline Phosphatase 123 H Creatine Kinase 25 L Troponin I < 0.05 Total Protein 6.5 Albumin 2.7 L Urine Color Urine Appearance Urine pH Ur Specific [place] Urine Protein Urine Glucose (UA) Urine Ketones Urine Blood Urine Nitrite Urine Bilirubin Urine Urobilinogen Ur Leukocyte Esterase Urine WBC (Auto) Urine RBC (Auto) Urine Casts (Auto) U Pathogenic Cast Auto U Epithel Cells (Auto) Urine Bacteria (Auto) 12/28/18 12/28/18 12/28/18 20:15 20:50 21:15 WBC RBC Hgb Hct MCV MCH MCHC RDW Plt Count MPV Absolute Neuts (auto) Neutrophils % Lymphocytes % Monocytes % Eosinophils % Basophils % Nucleated RBC % Retic Count PT with INR 15.20 H INR 1.28 H PTT (Actin FS) 29.7 Sodium Potassium Chloride Carbon Dioxide Anion Gap BUN Creatinine Est GFR (CKD-EPI)AfAm Est GFR (CKD-EPI)NonAf POC Glucometer Random Glucose Lactic Acid 0.7 Calcium Phosphorus Magnesium Iron TIBC Iron Saturation Unsaturated IBC Ferritin Total Bilirubin AST ALT Alkaline Phosphatase Creatine Kinase Troponin I Total Protein Albumin Urine Color Yellow Urine Appearance Turbid Urine pH 6.0 Ur Specific [place] 1.014 Urine Protein 3+ H Urine Glucose (UA) Negative Urine Ketones Negative Urine Blood 3+ H Urine Nitrite Negative Urine Bilirubin Negative Urine Urobilinogen 0.2 Ur Leukocyte Esterase 3+ H Urine WBC (Auto) 648 Urine RBC (Auto) 65 Urine Casts (Auto) 16 U Pathogenic Cast Auto None seen U Epithel Cells (Auto) 2.6 Urine Bacteria (Auto) 17.6 12/29/18 12/29/18 12/29/18 05:05 05:30 05:30 WBC 10.4 H RBC 3.01 L Hgb 8.9 L Hct 27.3 L MCV 90.8 MCH 29.6 MCHC 32.6 RDW 13.2 Plt Count 170 D MPV 8.5 Absolute Neuts (auto) Neutrophils % Lymphocytes % Monocytes % Eosinophils % Basophils % Nucleated RBC % Retic Count 2.72 H PT with INR INR PTT (Actin FS) Sodium 143 Potassium 4.1 Chloride 112 H Carbon Dioxide 22 Anion Gap 8 BUN 31.6 H Creatinine 1.7 H Est GFR (CKD-EPI)AfAm 39.22 Est GFR (CKD-EPI)NonAf 33.84 POC Glucometer 154 Random Glucose 182 H Lactic Acid Calcium 8.3 L Phosphorus 4.3 Magnesium 1.7 L Iron 21 L TIBC 178 L Iron Saturation 11 L Unsaturated IBC 157 L Ferritin 152.1 Total Bilirubin 0.4 AST 7 L ALT 10 L Alkaline Phosphatase 108 Creatine Kinase Troponin I 0.06 H Total Protein 5.8 L Albumin 2.3 L Urine Color Urine Appearance Urine pH Ur Specific [place] Urine Protein Urine Glucose (UA) Urine Ketones Urine Blood Urine Nitrite Urine Bilirubin Urine Urobilinogen Ur Leukocyte Esterase Urine WBC (Auto) Urine RBC (Auto) Urine Casts (Auto) U Pathogenic Cast Auto U Epithel Cells (Auto) Urine Bacteria (Auto) 12/29/18 12/29/18 05:30 09:53 WBC RBC Hgb Hct MCV MCH MCHC RDW Plt Count MPV Absolute Neuts (auto) Neutrophils % Lymphocytes % Monocytes % Eosinophils % Basophils % Nucleated RBC % Retic Count PT with INR INR PTT (Actin FS) Sodium Potassium Chloride Carbon Dioxide Anion Gap BUN Creatinine Est GFR (CKD-EPI)AfAm Est GFR (CKD-EPI)NonAf POC Glucometer 121 Random Glucose Lactic Acid 0.7 Calcium Phosphorus Magnesium Iron TIBC Iron Saturation Unsaturated IBC Ferritin Total Bilirubin AST ALT Alkaline Phosphatase Creatine Kinase Troponin I Total Protein Albumin Urine Color Urine Appearance Urine pH Ur Specific [place] Urine Protein Urine Glucose (UA) Urine Ketones Urine Blood Urine Nitrite Urine Bilirubin Urine Urobilinogen Ur Leukocyte Esterase Urine WBC (Auto) Urine RBC (Auto) Urine Casts (Auto) U Pathogenic Cast Auto U Epithel Cells (Auto) Urine Bacteria (Auto) Active Medications Generic Name Dose Route Start Last Admin Trade Name Freq PRN Reason Stop Dose Admin Brimonidine Tartrate 1 drop 12/29/18 10:00 Alphagan 0.15% - OS DAILY [facility] Chlorhexidine Gluconate 1 applic 12/29/18 22:00 Hibiclens For Decolonization - TP HS DEBRA Clonazepam 1 mg 12/29/18 10:00 12/29/18 09:45 Klonopin - PO 1 mg BID DEBRA Administration Clotrimazole 1 applic 12/29/18 10:00 Lotrisone Cream (Small Tube) TP BID DEBRA Dorzolamide HCl 1 drop 12/29/18 10:00 Trusopt 2% OD DAILY DEBRA Duloxetine HCl 30 mg 12/29/18 10:00 12/29/18 09:45 Cymbalta - PO 30 mg BID DEBRA Administration Folic Acid 1 mg 12/29/18 10:00 12/29/18 09:48 Folic Acid - PO 1 mg DAILY [facility] Administration Heparin Sodium (Porcine) 5,000 unit 12/29/18 06:00 Heparin - SQ TID [facility] Hydrocortisone 1 applic 12/29/18 10:00 Anusol 2.5% Hc Cream - RC BID [facility] Norepinephrine Bitartrate 4, 500 mls @ 37.5 mls/hr 12/29/18 03:45 12/29/18 09 :51 000 mcg/ Dextrose IV 2 mcg/min TITR DEBRA 15 mls/hr Administration Protocol 5 MCG/MIN Meropenem 1 gm/ Dextrose 100 mls @ 0 mls/hr 12/29/18 15:00 IVPB Q12H [facility] As Directed Insulin Aspart 1 vial 12/29/18 04:15 12/29/18 05:36 Novolog Vial Sliding Scale - SQ Not Given Q6H [facility] Protocol Mupirocin 1 applic 12/29/18 10:00 Bactroban Ointment (For Decolonization) - NS 01/03/19 09:59 BID [facility] Non-Formulary Medication 100 mg 12/29/18 10:00 Lamotrigine [Lamotrigine Er] PO BID [facility] Oxcarbazepine 300 mg 12/29/18 22:00 Trileptal - PO HS [facility] Oxcarbazepine 600 mg 12/29/18 10:00 12/29/18 09:45 Trileptal - PO 600 mg DAILY [facility] Administration Pantoprazole Sodium 40 mg 12/29/18 07:00 Protonix - PO ACBK [facility] Sevelamer Carbonate 800 mg 12/29/18 06:00 Renvela - PO TID [facility] Solifenacin 5 mg 12/29/18 10:00 Vesicare - PO DAILY [facility] ASSESSMENT/PLAN: Noreen Copelnad is a 53 year old female with a past medical history of Turners Syndrome, Schizoaffective disorder, 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 Septic Shock secondary to UTI T2DM CKD Anemia Proptosis NEUROLOGIC - lethargic, unclear of true baseline - continue home seizure medications lamotrigine and oxcarbamazepine CARDIOLOGY - septic shock refractory to 3L boluses in ED - gave 500cc bolus in ICU - central line placed - dopamine vasopressor started in ED - changed to Levophed, titrate as tolerated to maintain MAP>65 - CVP monitoring - troponin negative, today 0.06 - lactic 0.7, repeat for AM labs - EKG showing sinus rhythm, age indeterminate inferior infarct (q waves),QTc 428 - echo ordered RESPIRATORY - satting well on NC, continue to monitor RENAL - CRE 1.7, unclear of baseline, hx of CKD - NS 100cc/hr - recheck in AM - renal/bladder U/S - golimumab to start 01/12 for kidney failure - consider renal consult GASTROINTESTINAL - FOBT ordered - protonix 40mg daily GENITOURINARY - home hippurate - home oxybutynin INFECTIOUS DISEASE - WBC 10.4, afebrile - allergic to PCN and azithromycin - received Levaquin in ED - continue meropenem 1g q12h, caution with use as patient has seizure disorder, give after patient has received home AEDs - continue steroid and antifungal cream for rash - will get derm consult to evaluate rash - F/u Blood cultures - F/u urine cultures - ID following (Dr. Drake), recommendations appreciated ENDOCRINE - BGM q6h - ISS q6h HEMATOLOGY - anemia, Hgb 8.9, unclear of baseline, decreased since admission - FOBT ordered - iron studies, reticulocyte count - continue to follow MUSCULOSKELETAL - CT orbits showing borderline proptosis of L eye, curvilinear calcification along left lacrimal gland - restart home eye drops> trusopt and alphagan - opthalmology consultation placed - hydrocortisone cream to nose and bilateral ears F/E/N - NS 100cc/hr - continue to monitor electrolytes and replete as necessary - diabetic/ Na controlled diet, advance diet as tolerated LINES - L hand inserted 12/28 PROPHYLAXIS - heparin 5000 units subq tid CODE - full code DISPO - continue to monitor in ICU Visit type - Emergency Visit Emergency Visit: Yes ED Registration Date: 12/28/18 Care time: The patient presented to the Emergency Department on the above date and was hospitalized for further evaluation of their emergent condition. - New Patient This patient is new to me today: Yes Date on this admission: 12/29/18 - Critical Care Critical Care patient: Yes Total Critical Care Time (in minutes): 40 Critical Care Statement: The care of this patient involved high complexity decision making to prevent further life threatening deterioration of the patient 's condition and/or to evaluate & treat vital organ system(s) failure or risk of failure. ATTENDING PHYSICIAN STATEMENT I saw and evaluated the patient. I reviewed the resident's note and discussed the case with the resident. I agree with the resident's findings and plan as documented. SUBJECTIVE: OBJECTIVE: ASSESSMENT AND PLAN:
--- NOTE | 2018-12-29 10:14 | PN ---
Teaching Attending Note Name of Resident: Renetta Wilkins ATTENDING PHYSICIAN STATEMENT I saw and evaluated the patient. I reviewed the resident's note and discussed the case with the resident. I agree with the resident's findings and plan as documented. SUBJECTIVE: Patient seen and examined in the ICU. Sleepy but arousable. Able to answer simple commands. Currently off pressors, but hemodynamics are marginal. Denies CP or SOB. Intake & Output 12/26/18 12/27/18 12/28/18 12/29/18 23:59 23:59 23:59 23:59 Weight 250 lb 195 lb 15.855 oz Last Vital Signs Temp Pulse Resp BP Pulse Ox 98.2 F 93 H 28 H 89/49 L 100 12/29/18 08:03 12/29/18 09:51 12/29/18 08:03 12/29/18 09:51 12/29/18 04:00 Active Medications Brimonidine Tartrate (Alphagan 0.15% -) 1 drop OS DAILY [facility] Chlorhexidine Gluconate (Hibiclens For Decolonization -) 1 applic TP HS [facility] Clonazepam (Klonopin -) 1 mg PO BID [facility] Last Admin: 12/29/18 09:45 Dose: 1 mg Clotrimazole (Lotrisone Cream (Small Tube)) 1 applic TP BID [facility] Dorzolamide HCl (Trusopt 2%) 1 drop OD DAILY [facility] Duloxetine HCl (Cymbalta -) 30 mg PO BID DEBRA Last Admin: 12/29/18 09:45 Dose: 30 mg Folic Acid (Folic Acid -) 1 mg PO DAILY DEBRA Last Admin: 12/29/18 09:48 Dose: 1 mg Heparin Sodium (Porcine) (Heparin -) 5,000 unit SQ TID [facility] Hydrocortisone (Anusol 2.5% Hc Cream -) 1 applic RC BID [facility] Norepinephrine Bitartrate 4, (000 mcg/ Dextrose) 500 mls @ 37.5 mls/hr IV TITR [facility]; Protocol Last Admin: 12/29/18 09:51 Dose: 2 mcg/min, 15 mls/hr Meropenem 1 gm/ Dextrose 100 mls @ 0 mls/hr IVPB Q12H [facility] Insulin Aspart (Novolog Vial Sliding Scale -) 1 vial SQ Q6H [facility]; Protocol Last Admin: 12/29/18 05:36 Dose: Not Given Mupirocin (Bactroban Ointment (For Decolonization) -) 1 applic NS BID [facility] Stop: 01/03/19 09:59 Non-Formulary Medication (Lamotrigine [Lamotrigine Er]) 100 mg PO BID [facility] Oxcarbazepine (Trileptal -) 300 mg PO HS [facility] Oxcarbazepine (Trileptal -) 600 mg PO DAILY [facility] Last Admin: 12/29/18 09:45 Dose: 600 mg Pantoprazole Sodium (Protonix -) 40 mg PO ACBK [facility] Sevelamer Carbonate (Renvela -) 800 mg PO TID [facility] Solifenacin (Vesicare -) 5 mg PO DAILY [facility] l GENERAL: Sleepy but arousable, Able to follow basic commands and answer simple questions EYES: Pupils equal, round and reactive to light, extraocular movements intact, propoptosis of the left eye LUNGS: Breath sounds equal, clear to auscultation bilaterally. No wheezes, and no crackles. No accessory muscle use. HEART: Regular rate and rhythm, normal S1 and S2 without murmur, rub or gallop. ABDOMEN: Soft, nontender, not distended, normoactive bowel sounds, no guarding, no rebound, no masses. MUSCULOSKELETAL: Normal range of motion at all joints. No bony deformities or tenderness. UPPER EXTREMITIES: 2+ pulses, warm, well-perfused. No cyanosis. No peripheral edema. LOWER EXTREMITIES: 2+ pulses, warm, well-perfused. No peripheral edema. NEUROLOGICAL: Follows basic commands, non-focal PSYCHIATRIC: Cooperative. SKIN: Warm, dry, normal turgor, sporadic excoriations, dermatitis rash on face, ear, upper and lower extremities noted. Laboratory Results - last 24 hr 12/28/18 12/28/18 12/28/18 20:15 20:15 20:15 WBC 12.9 H RBC 3.22 L Hgb 9.6 L Hct 28.8 L MCV 89.3 MCH 29.7 MCHC 33.2 RDW 12.9 Plt Count 227 MPV 8.7 Absolute Neuts (auto) 10.9 H Neutrophils % 84.4 H Lymphocytes % 9.1 Monocytes % 6.2 Eosinophils % 0.2 Basophils % 0.1 Nucleated RBC % 0 Retic Count PT with INR INR PTT (Actin FS) Sodium 137 Potassium 4.3 Chloride 106 Carbon Dioxide 23 Anion Gap 8 BUN 31.3 H Creatinine 1.6 H Est GFR (CKD-EPI)AfAm 42.20 Est GFR (CKD-EPI)NonAf 36.41 POC Glucometer Random Glucose 138 H Lactic Acid Calcium 9.4 Phosphorus Magnesium Iron TIBC Iron Saturation Unsaturated IBC Ferritin Total Bilirubin 0.4 AST 7 L ALT 10 L Alkaline Phosphatase 123 H Creatine Kinase 25 L Troponin I < 0.05 Total Protein 6.5 Albumin 2.7 L Urine Color Urine Appearance Urine pH Ur Specific [place] Urine Protein Urine Glucose (UA) Urine Ketones Urine Blood Urine Nitrite Urine Bilirubin Urine Urobilinogen Ur Leukocyte Esterase Urine WBC (Auto) Urine RBC (Auto) Urine Casts (Auto) U Pathogenic Cast Auto U Epithel Cells (Auto) Urine Bacteria (Auto) 12/28/18 12/28/18 12/28/18 20:15 20:50 21:15 WBC RBC Hgb Hct MCV MCH MCHC RDW Plt Count MPV Absolute Neuts (auto) Neutrophils % Lymphocytes % Monocytes % Eosinophils % Basophils % Nucleated RBC % Retic Count PT with INR 15.20 H INR 1.28 H PTT (Actin FS) 29.7 Sodium Potassium Chloride Carbon Dioxide Anion Gap BUN Creatinine Est GFR (CKD-EPI)AfAm Est GFR (CKD-EPI)NonAf POC Glucometer Random Glucose Lactic Acid 0.7 Calcium Phosphorus Magnesium Iron TIBC Iron Saturation Unsaturated IBC Ferritin Total Bilirubin AST ALT Alkaline Phosphatase Creatine Kinase Troponin I Total Protein Albumin Urine Color Yellow Urine Appearance Turbid Urine pH 6.0 Ur Specific [place] 1.014 Urine Protein 3+ H Urine Glucose (UA) Negative Urine Ketones Negative Urine Blood 3+ H Urine Nitrite Negative Urine Bilirubin Negative Urine Urobilinogen 0.2 Ur Leukocyte Esterase 3+ H Urine WBC (Auto) 648 Urine RBC (Auto) 65 Urine Casts (Auto) 16 U Pathogenic Cast Auto None seen U Epithel Cells (Auto) 2.6 Urine Bacteria (Auto) 17.6 12/29/18 12/29/18 12/29/18 05:05 05:30 05:30 WBC 10.4 H RBC 3.01 L Hgb 8.9 L Hct 27.3 L MCV 90.8 MCH 29.6 MCHC 32.6 RDW 13.2 Plt Count 170 D MPV 8.5 Absolute Neuts (auto) Neutrophils % Lymphocytes % Monocytes % Eosinophils % Basophils % Nucleated RBC % Retic Count 2.72 H PT with INR INR PTT (Actin FS) Sodium 143 Potassium 4.1 Chloride 112 H Carbon Dioxide 22 Anion Gap 8 BUN 31.6 H Creatinine 1.7 H Est GFR (CKD-EPI)AfAm 39.22 Est GFR (CKD-EPI)NonAf 33.84 POC Glucometer 154 Random Glucose 182 H Lactic Acid Calcium 8.3 L Phosphorus 4.3 Magnesium 1.7 L Iron 21 L TIBC 178 L Iron Saturation 11 L Unsaturated IBC 157 L Ferritin 152.1 Total Bilirubin 0.4 AST 7 L ALT 10 L Alkaline Phosphatase 108 Creatine Kinase Troponin I 0.06 H Total Protein 5.8 L Albumin 2.3 L Urine Color Urine Appearance Urine pH Ur Specific [place] Urine Protein Urine Glucose (UA) Urine Ketones Urine Blood Urine Nitrite Urine Bilirubin Urine Urobilinogen Ur Leukocyte Esterase Urine WBC (Auto) Urine RBC (Auto) Urine Casts (Auto) U Pathogenic Cast Auto U Epithel Cells (Auto) Urine Bacteria (Auto) 12/29/18 12/29/18 05:30 09:53 WBC RBC Hgb Hct MCV MCH MCHC RDW Plt Count MPV Absolute Neuts (auto) Neutrophils % Lymphocytes % Monocytes % Eosinophils % Basophils % Nucleated RBC % Retic Count PT with INR INR PTT (Actin FS) Sodium Potassium Chloride Carbon Dioxide Anion Gap BUN Creatinine Est GFR (CKD-EPI)AfAm Est GFR (CKD-EPI)NonAf POC Glucometer 121 Random Glucose Lactic Acid 0.7 Calcium Phosphorus Magnesium Iron TIBC Iron Saturation Unsaturated IBC Ferritin Total Bilirubin AST ALT Alkaline Phosphatase Creatine Kinase Troponin I Total Protein Albumin Urine Color Urine Appearance Urine pH Ur Specific [place] Urine Protein Urine Glucose (UA) Urine Ketones Urine Blood Urine Nitrite Urine Bilirubin Urine Urobilinogen Ur Leukocyte Esterase Urine WBC (Auto) Urine RBC (Auto) Urine Casts (Auto) U Pathogenic Cast Auto U Epithel Cells (Auto) Urine Bacteria (Auto) ASSESSMENT/PLAN: Septic Shock secondary to UTI DM Turners Syndrome Schizoaffective disorder 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 Psoriasis) Requires ICU monitoring for tenuous hemodynamics Dr Andrew Critical care time spent in reviewing chart, evaluating patient and formulating plan - 36 minutes.
[2018-12-29] MEDS ORDERED: FERROUS SO4 325 MG TABLET (FP) PO ONE (10:34)
[2018-12-29] MEDS ORDERED: MAGNESIUM OXIDE 400 MG TABLET (FP) PO ONE (10:34)
[2018-12-29] MEDS: SOLIFENACIN SUCCINATE 5 MG TAB PO SCH (10:35)
[2018-12-29] MEDS: SODIUM CHLORIDE 1,000 ML IV SCH (11:28)
--- NOTE | 2018-12-29 11:32 | EKG ---
Test Reason : Blood Pressure : / mmHG Vent. Rate : 089 BPM Atrial Rate : 089 BPM P-R Int : 152 ms QRS Dur : 094 ms QT Int : 352 ms P-R-T Axes : 058 009 025 degrees QTc Int : 428 ms NORMAL SINUS RHYTHM INFERIOR INFARCT , AGE UNDETERMINED POSSIBLE ANTERIOR INFARCT , AGE UNDETERMINED ABNORMAL ECG NO PREVIOUS ECGS AVAILABLE Confirmed by KRISHAN MORE MD ([id number]) on 12/29/2018 11:32:29 AM Referred By: Confirmed By:KRISHAN MORE MD
[2018-12-29] MEDS ORDERED: PT OWN MED DRAWER 7, Y5N ONE (12:12)
[2018-12-29] MEDS: CLOTRIMAZOLE/BETAMET DIPROP 15 GM TUBE TP SCH ×2 (12:24→21:54)
[2018-12-29] MEDS: HYDROCORTISONE 2.5% TOPICAL CREAM 30 GM TUBE RC SCH ×2 (12:31→21:53)
[2018-12-29] MEDS: MUPIROCIN 2% TOPICAL OINTMENT FOR DECOLONIZATION NS SCH ×2 (12:31→21:53)
--- NOTE | 2018-12-29 12:57 | CONS ---
DATE OF CONSULTATION: DATE OF DICTATION: 12/29/2018 This is a 53-year-old woman. She is admitted from the senior care for lethargy and fever. She was found to have fever of 100.8 there and was very, very lethargic and not able to communicate. In the emergency room, she was noted to be hypotensive, required IV fluids. She received 3 L, with persistent hypotension, and was admitted to ICU. She was given Levaquin followed by meropenem. She is currently in the ICU, where she is awake and able to answer questions. She denies any chest pain, abdominal pain. She has a chronic rash that she states is extremely itchy on her right hand and her abdomen surrounding her colostomy, which she says she has had for years, and scattered on her arms and on her right ear. She denies any nausea or vomiting. She denies any diarrhea. In the ER, she was noted to have pyuria. Per the senior care papers, she was last at [facility] and transferred to the senior care on October 11. It is unclear what the [facility] admission was. Patient is unable to give any details. Prior to that, she reports she was living in [place]. Her past medical history is notable for Aguero syndrome, schizoaffective disorder, congenital malformation associated with short stature, type 2 diabetes, chronic kidney disease, although the last set of labs which were sent over by the senior care are from December 13 of this year and her BUN was 33 and her creatinine was 1.1. White count was 6.8 at that time with a hemoglobin of 10. She has a history as well of colon cancer. She is status post colectomy, she does not know when. She has a history of GERD in the past and seizures. Past surgical history is also notable for a left eye prosthesis, it is unclear why. Her medications at the senior care include she is on brimonidine eyedrops. She takes vitamin D tablets, she is on clonazepam, duloxetine, famotidine, ferrous sulfate, folic acid, hydrocortisone cream to her ears and to her rash, she is on Lamictal, Lotrisone cream being used on her abdomen, methenamine hippurate, she is getting olanzapine, omeprazole, oxcarbazepine, oxybutynin, sevelamer carbonate, and she is on Simponi injections, as well as Trusopt eyedrops for glaucoma. She is allergic to ZITHROMAX and PENICILLIN. She reports she gets rash to the PENICILLIN; ZITHROMAX allergy is not clear. Family history is not available. SOCIAL HISTORY: She was living in [place]. It is unclear what kind of living situation she was in. REVIEW OF SYSTEMS: She is blind in her left eye. She has minimal vision in her right. She notes that when she sleeps, she has some difficulty with her breathing. She has no chest pain or abdominal pain. She has had a chronic rash on her abdomen, a very, very itchy rash on her abdomen and ears for several weeks, per the patient. PHYSICAL EXAMINATION: General: She is awake and alert. Vital Signs: Temperature is 97.8. T-max was 101.5. Pulse of 85. Blood pressure 112/51. Respiratory rate 20. She weighs 89 kg. HEENT: Normocephalic. Her eyes are anicteric. She has no pharyngitis or thrush or lesions in her mouth. Her lips are dried and caked. Heart: Regular rate and rhythm. Lungs: Clear to auscultation. Abdomen: Soft. She has a colostomy intact. Extremities: Without any edema. Skin: Her skin is notable for the fact her back has no rash. Her right hand is wrapped but apparently she has multiple excoriations. Her abdomen, surrounding the colostomy, she has a plaque-like large erythematous rash. She has a flaking draining right ear and she has multiple smaller 1- to 2-cm flaky round flat lesions scattered on her arms that she states are very itchy. Labs are notable for white count, Chiang has just been placed, white count of 12.9 on admission, this morning is 10.4. Hemoglobin is 8.9, platelets are 170. INR is 1.2. BUN 31, creatinine 1.7. LFTs are normal. Her urinalysis has 3+ leukocytes with 648 white cells. Chest x-ray is negative for infiltrate. In summary, this is a 53-year-old woman admitted from the senior care with probable urosepsis. She has hypotension and requires pressors despite fluid resuscitation consistent with sepsis. She has a PENICILLIN allergy manifested by rash as well as allergies to AZITHROMYCIN. She received Levaquin and meropenem in the ER. Would suggest at this time that we continue the meropenem pending cultures, given the fact she is from the senior care and I suspect monotherapy with quinolones is not sufficient to treat her. Number 2, chronic rash: Not sure what component of the abdominal rash is due to the leaking colostomy. At this point, the rash is so extensive and chronic, I suspect she would require dermatologic evaluation. It would be reasonable to continue her on antifungal and steroid creams while we are awaiting dermatology evaluation. Number 3, history of seizures: She will require monitoring while she is on the meropenem as this may lower her seizure threshold. Lastly, she is on Simponi, which makes me suspect that this rash is perhaps a component of psoriatic arthritis or some other such illness. Further history would be required from the primary care doctors. I am sure why she is on this medication. Further recommendations to follow. RICKEY KOROMA M.D. DAVIDA/[id number]
[2018-12-29] MEDS: MEROPENEM 1 GM in DEXTROSE 5%-WATER 100 ML IVPB SCH (14:13)
[2018-12-29] MEDS: SEVELAMER CARBONATE 800 MG TAB (FP) PO SCH ×3 (14:13→21:54)
[2018-12-29] MEDS: HEPARIN NA (PORCINE) 5,000 UNITS/ML 1ML VIAL SQ SCH ×2 (14:15→21:52)
[2018-12-29] MEDS ORDERED: AMIODARONE IN DEXTROSE,ISO-OSM 360 MG/200 ML BAG ONE (17:00)
[2018-12-29] MEDS: ACETAMINOPHEN 1000 MG/100 ML VIAL (NON FORMULARY) IVPB PRN (17:28)
[2018-12-29] MEDS: CHLORHEXIDINE GLUCONATE 4% CLEANSER FOR DECOLONIZATION TP SCH (21:53)
[2018-12-29] MEDS: OXcarbazepine 150 MG TABLET (UD) PO SCH (21:57)
[2018-12-30] MEDS: MEROPENEM 1 GM in DEXTROSE 5%-WATER 100 ML IVPB SCH ×2 (02:22→14:01)
[2018-12-30] MEDS: INSULIN SLIDING SCALE (NOVOLOG) 1 VIAL SQ SCH ×4 (05:16→22:32)
[2018-12-30] MEDS: HEPARIN NA (PORCINE) 5,000 UNITS/ML 1ML VIAL SQ SCH ×4 (06:23→22:30)
[2018-12-30] MEDS: SEVELAMER CARBONATE 800 MG TAB (FP) PO SCH ×3 (06:23→22:30)
[2018-12-30] MEDS: PANTOPRAZOLE 40 MG TABLET (FP) PO SCH (06:23)
[2018-12-30 06:37] LABS: HEMATOCRIT 26.4 % (32.4-45.2); HEMOGLOBIN 8.8 GM/dL (10.7-15.3); MCH 30.1 pg (25.7-33.7); MCHC 33.3 g/dl (32.0-36.0); MEAN CELL VOLUME 90.2 fl (80-96); MEAN PLT VOLUME 8.9 fl (7.5-11.1); PLATELET COUNT 169 K/MM3 (134-434); RBC 2.93 M/mm3 (3.60-5.2); RDW 13.2 % (11.6-15.6); WHITE BLOOD COUNT 9.4 K/mm3 (4.0-10.0)
[2018-12-30 06:45] LABS: ALBUMIN 2.1 g/dl (3.4-5.0); BILIRUBIN,TOTAL 0.2 mg/dL (0.2-1); BLOOD UREA NITROGEN 20.7 mg/dL (7-18); CALCIUM 8.5 mg/dL (8.5-10.1); CREATININE 1.5 mg/dL (0.55-1.3); TOT PROT 5.6 g/dl (6.4-8.2)
[2018-12-30] MEDS: NOREPINEPHRINE BITARTRATE 4,000 MCG in DEXTROSE 5%-WATER - 496 ML IV SCH ×2 (08:35→10:13)
[2018-12-30] MEDS: MUPIROCIN 2% TOPICAL OINTMENT FOR DECOLONIZATION NS SCH ×2 (09:44→22:32)
[2018-12-30] MEDS: CLOTRIMAZOLE/BETAMET DIPROP 15 GM TUBE TP SCH ×2 (09:44→22:31)
[2018-12-30] MEDS: DORZOLAMIDE 2% HCL OPHTHALMIC SOLUTION 10 ML BOTTLE OS SCH (09:45)
[2018-12-30] MEDS ORDERED: PT OWN MED DRAWER 7, Y5N ONE ×2 (09:51→22:12)
[2018-12-30] MEDS: clonazePAM 0.5 MG TABLET PO SCH ×2 (09:54→22:29)
[2018-12-30] MEDS: DULoxetine HCL 30 MG CAPSULE.DR PO SCH ×2 (09:55→22:30)
[2018-12-30] MEDS: FOLIC ACID 1 MG TABLET (FP) PO SCH (09:55)
[2018-12-30] MEDS: SOLIFENACIN SUCCINATE 5 MG TAB PO SCH (09:55)
[2018-12-30] MEDS: OXcarbazepine 300 MG TABLET (UD) PO SCH (09:55)
[2018-12-30] MEDS: HYDROCORTISONE 2.5% TOPICAL CREAM 30 GM TUBE RC SCH ×2 (09:56→22:30)
[2018-12-30] MEDS: SODIUM CHLORIDE 1,000 ML IV SCH (10:18)
--- NOTE | 2018-12-30 10:21 | PN ---
Progress Note (short form) - Note Progress Note: sleepy but arousable no complaints remains on levophed- being tapered Vital Signs Period Temp Pulse Resp BP Sys/Lombardi Pulse Ox Last 24 Hr 98.0 F-99.0 F 71-104 20-32 96-143/48-96 100 skin-plaque like lesions on right hand, abdomen, right ear with rash cor-rrr lungs decreased bs at bses abd soft,nt +colostomy ext no edema CBC, BMP 12/30/18 05:30 12/30/18 05:30 Microbiology 12/28/18 21:15 Urine - Urine - Catheterized Urine Culture - Preliminary Lactose Fermenting Neg Bacilli 12/28/18 20:15 Blood - Peripheral Venous Blood Culture - Preliminary NO GROWTH OBTAINED AFTER 24 HOURS, INCUBATION TO CONTINUE FOR 4 DAYS. 12/28/18 20:50 Blood - Peripheral Venous Blood Culture - Preliminary NO GROWTH OBTAINED AFTER 24 HOURS, INCUBATION TO CONTINUE FOR 4 DAYS. renal sonogram- no hydronephrosis Current Medications Acetaminophen (Ofirmev Injection -) 1,000 mg IVPB Q6H PRN PRN Reason: PAIN LEVEL 6-10 Last Admin: 12/29/18 17:28 Dose: 1,000 mg Brimonidine Tartrate (Alphagan 0.15% -) 1 drop OD DAILY [facility] Chlorhexidine Gluconate (Hibiclens For Decolonization -) 1 applic TP HS [facility] Last Admin: 12/29/18 21:53 Dose: 1 applic Clonazepam (Klonopin -) 1 mg PO BID [facility] Last Admin: 12/30/18 09:54 Dose: 1 mg Clotrimazole (Lotrisone Cream (Small Tube)) 1 applic TP BID [facility] Last Admin: 12/30/18 09:44 Dose: 1 applic Dorzolamide HCl (Trusopt 2%) 1 drop OS DAILY [facility] Last Admin: 12/30/18 09:45 Dose: 1 drop Duloxetine HCl (Cymbalta -) 30 mg PO BID [facility] Last Admin: 12/30/18 09:55 Dose: 30 mg Folic Acid (Folic Acid -) 1 mg PO DAILY [facility] Last Admin: 12/30/18 09:55 Dose: 1 mg Heparin Sodium (Porcine) (Heparin -) 5,000 unit SQ TID [facility] Last Admin: 12/30/18 06:23 Dose: 5,000 unit Hydrocortisone (Anusol 2.5% Hc Cream -) 1 applic RC BID [facility] Last Admin: 12/30/18 09:56 Dose: 1 applic Norepinephrine Bitartrate 4, (000 mcg/ Dextrose) 500 mls @ 37.5 mls/hr IV TITR [facility]; Protocol Last Admin: 12/30/18 10:13 Dose: Not Given Meropenem 1 gm/ Dextrose 100 mls @ 0 mls/hr IVPB Q12H [facility] Last Admin: 12/30/18 02:22 Dose: 100 mls/hr Sodium Chloride (Normal Saline -) 1,000 mls @ 100 mls/hr IV ASDIR [facility] Last Admin: 12/30/18 10:18 Dose: 100 mls/hr Insulin Aspart (Novolog Vial Sliding Scale -) 1 vial SQ Q6H [facility]; Protocol Last Admin: 12/30/18 10:13 Dose: Not Given Mupirocin (Bactroban Ointment (For Decolonization) -) 1 applic NS BID [facility] Stop: 01/03/19 09:59 Last Admin: 12/30/18 09:44 Dose: 1 applic Non-Formulary Medication (Lamotrigine [Lamotrigine Er]) 100 mg PO BID [facility] Oxcarbazepine (Trileptal -) 300 mg PO HS [facility] Last Admin: 12/29/18 21:57 Dose: 300 mg Oxcarbazepine (Trileptal -) 600 mg PO DAILY [facility] Last Admin: 12/30/18 09:55 Dose: 600 mg Pantoprazole Sodium (Protonix -) 40 mg PO ACBK [facility] Last Admin: 12/30/18 06:23 Dose: 40 mg Sevelamer Carbonate (Renvela -) 800 mg PO TID [facility] Last Admin: 12/30/18 06:23 Dose: 800 mg Solifenacin (Vesicare -) 5 mg PO DAILY [facility] Last Admin: 12/30/18 09:55 Dose: 5 mg a/p suspect sepsis secondary to UTI-remains on levophed - being tapered pen allergy (rash)/zithromax allergy chronic rash- ?psoriatic arthritis- consider derm eval- why is she on simponi? acute renal insufficiency-no hydronephrosis blind left eye colostomy seizure disorder suggest continue meropenem for now pending cultures watch for seizures dermatology evaluation- continue steroid cream/antifungal cream for now continue iv hydration Problem List - Problems (1) Sepsis Code(s): A41.9 - SEPSIS, UNSPECIFIED ORGANISM Qualifiers: Sepsis type: sepsis due to unspecified organism Sepsis acute organ dysfunction status: with acute organ dysfunction Severe sepsis acute organ dysfunction type: acute renal failure Acute renal failure type: unspecified Severe sepsis shock status: unspecified Qualified Code(s): A41.9 - Sepsis, unspecified organism; R65.20 - Severe sepsis without septic shock; N17.9 - Acute kidney failure, unspecified (2) UTI (urinary tract infection) Code(s): N39.0 - URINARY TRACT INFECTION, SITE NOT SPECIFIED Qualifiers: Urinary tract infection type: site unspecified Hematuria presence: without hematuria Qualified Code(s): N39.0 - Urinary tract infection, site not specified (3) Penicillin allergy Code(s): Z88.0 - ALLERGY STATUS TO PENICILLIN (4) Rash Code(s): R21 - RASH AND OTHER NONSPECIFIC SKIN ERUPTION (5) KIRAN (acute kidney injury) Code(s): N17.9 - ACUTE KIDNEY FAILURE, UNSPECIFIED
--- NOTE | 2018-12-30 12:05 | PN ---
Progress Note, Physician Chief Complaint: patient seen in icu sleepy but arousable on pressors - Current Medication List Current Medications: Active Medications Acetaminophen (Ofirmev Injection -) 1,000 mg IVPB Q6H PRN PRN Reason: PAIN LEVEL 6-10 Last Admin: 12/29/18 17:28 Dose: 1,000 mg Brimonidine Tartrate (Alphagan 0.15% -) 1 drop OD DAILY [facility] Chlorhexidine Gluconate (Hibiclens For Decolonization -) 1 applic TP HS [facility] Last Admin: 12/29/18 21:53 Dose: 1 applic Clonazepam (Klonopin -) 1 mg PO BID [facility] Last Admin: 12/30/18 09:54 Dose: 1 mg Clotrimazole (Lotrisone Cream (Small Tube)) 1 applic TP BID [facility] Last Admin: 12/30/18 09:44 Dose: 1 applic Dorzolamide HCl (Trusopt 2%) 1 drop OS DAILY [facility] Last Admin: 12/30/18 09:45 Dose: 1 drop Duloxetine HCl (Cymbalta -) 30 mg PO BID [facility] Last Admin: 12/30/18 09:55 Dose: 30 mg Folic Acid (Folic Acid -) 1 mg PO DAILY [facility] Last Admin: 12/30/18 09:55 Dose: 1 mg Heparin Sodium (Porcine) (Heparin -) 5,000 unit SQ TID [facility] Last Admin: 12/30/18 06:23 Dose: 5,000 unit Hydrocortisone (Anusol 2.5% Hc Cream -) 1 applic RC BID [facility] Last Admin: 12/30/18 09:56 Dose: 1 applic Norepinephrine Bitartrate 4, (000 mcg/ Dextrose) 500 mls @ 37.5 mls/hr IV TITR [facility]; Protocol Last Admin: 12/30/18 10:13 Dose: Not Given Meropenem 1 gm/ Dextrose 100 mls @ 0 mls/hr IVPB Q12H [facility] Last Admin: 12/30/18 02:22 Dose: 100 mls/hr Sodium Chloride (Normal Saline -) 1,000 mls @ 100 mls/hr IV ASDIR [facility] Last Admin: 12/30/18 10:18 Dose: 100 mls/hr Insulin Aspart (Novolog Vial Sliding Scale -) 1 vial SQ Q6H [facility]; Protocol Last Admin: 12/30/18 10:13 Dose: Not Given Lamotrigine (Lamictal -) 100 mg PO BID [facility] Mupirocin (Bactroban Ointment (For Decolonization) -) 1 applic NS BID [facility] Stop: 01/03/19 09:59 Last Admin: 12/30/18 09:44 Dose: 1 applic Oxcarbazepine (Trileptal -) 300 mg PO HS [facility] Last Admin: 12/29/18 21:57 Dose: 300 mg Oxcarbazepine (Trileptal -) 600 mg PO DAILY [facility] Last Admin: 12/30/18 09:55 Dose: 600 mg Pantoprazole Sodium (Protonix -) 40 mg PO ACBK [facility] Last Admin: 12/30/18 06:23 Dose: 40 mg Sevelamer Carbonate (Renvela -) 800 mg PO TID [facility] Last Admin: 12/30/18 06:23 Dose: 800 mg Solifenacin (Vesicare -) 5 mg PO DAILY [facility] Last Admin: 12/30/18 09:55 Dose: 5 mg - Objective Vital Signs: Vital Signs Temperature 98.2 F 12/30/18 07:00 Pulse Rate 100 H 12/30/18 09:41 Respiratory Rate 32 H 12/30/18 07:00 Blood Pressure 110/59 L 12/30/18 09:41 O2 Sat by Pulse Oximetry (%) 100 12/29/18 21:00 Constitutional: Yes: Calm Cardiovascular: Yes: Regular Rate and Rhythm, S1, S2 Respiratory: Yes: Diminished Gastrointestinal: Yes: Normal Bowel Sounds, Soft Edema: No Integumentary: Yes: Rash (on right hand and ear) Labs: CBC, BMP 12/30/18 05:30 12/30/18 05:30 INR, PTT INR 1.28 (0.83-1.09) H 12/28/18 20:50 Problem List - Problems (1) KIRAN (acute kidney injury) Assessment/Plan: creatinine is improving ivf Code(s): N17.9 - ACUTE KIDNEY FAILURE, UNSPECIFIED (2) Hypotension Assessment/Plan: on levophed 3mcg ivf Code(s): I95.9 - HYPOTENSION, UNSPECIFIED Qualifiers: Hypotension type: unspecified hypotension type Qualified Code(s): I95.9 - Hypotension, unspecified (3) Rash Assessment/Plan: derm eval topical steroids Code(s): R21 - RASH AND OTHER NONSPECIFIC SKIN ERUPTION (4) UTI (urinary tract infection) Assessment/Plan: Microbiology 12/28/18 21:15 Urine - Urine - Catheterized Urine Culture - Preliminary Lactose Fermenting Neg Bacilli meropenem Code(s): N39.0 - URINARY TRACT INFECTION, SITE NOT SPECIFIED Qualifiers: Urinary tract infection type: site unspecified Hematuria presence: without hematuria Qualified Code(s): N39.0 - Urinary tract infection, site not specified (5) Anemia Assessment/Plan: iron panel noted venofer Code(s): D64.9 - ANEMIA, UNSPECIFIED Qualifiers: Anemia type: iron deficiency
--- NOTE | 2018-12-30 12:07 | PN ---
Teaching Attending Note Name of Resident: Mata Escalante ATTENDING PHYSICIAN STATEMENT I saw and evaluated the patient. I reviewed the resident's note and discussed the case with the resident. I agree with the resident's findings and plan as documented. SUBJECTIVE: Pt seen and examined in the ICU. Remains on levophed gtt. No fevers recorded. OBJECTIVE: Vital Signs Period Temp Pulse Resp BP Sys/Lombardi Pulse Ox Last 24 Hr 98.0 F-99.0 F 71-104 20-32 96-143/48-96 100 Intake & Output 12/27/18 12/28/18 12/29/18 12/30/18 23:59 23:59 23:59 23:59 Intake Total 1763 1015 Output Total 1540 1500 Balance 223 -485 Weight 113.398 kg 89 kg 92.7 kg Gen: mildly tachypneic at rest Heart: RRR Lung: scattered rhonchi Abd: soft, nontender Ext: no edema CBC, BMP 12/30/18 05:30 12/30/18 05:30 Active Medications Acetaminophen (Ofirmev Injection -) 1,000 mg IVPB Q6H PRN PRN Reason: PAIN LEVEL 6-10 Last Admin: 12/29/18 17:28 Dose: 1,000 mg Brimonidine Tartrate (Alphagan 0.15% -) 1 drop OD DAILY [facility] Chlorhexidine Gluconate (Hibiclens For Decolonization -) 1 applic TP HS [facility] Last Admin: 12/29/18 21:53 Dose: 1 applic Clonazepam (Klonopin -) 1 mg PO BID [facility] Last Admin: 12/30/18 09:54 Dose: 1 mg Clotrimazole (Lotrisone Cream (Small Tube)) 1 applic TP BID [facility] Last Admin: 12/30/18 09:44 Dose: 1 applic Dorzolamide HCl (Trusopt 2%) 1 drop OS DAILY [facility] Last Admin: 12/30/18 09:45 Dose: 1 drop Duloxetine HCl (Cymbalta -) 30 mg PO BID [facility] Last Admin: 12/30/18 09:55 Dose: 30 mg Folic Acid (Folic Acid -) 1 mg PO DAILY [facility] Last Admin: 12/30/18 09:55 Dose: 1 mg Heparin Sodium (Porcine) (Heparin -) 5,000 unit SQ TID [facility] Last Admin: 12/30/18 06:23 Dose: 5,000 unit Hydrocortisone (Anusol 2.5% Hc Cream -) 1 applic RC BID [facility] Last Admin: 12/30/18 09:56 Dose: 1 applic Norepinephrine Bitartrate 4, (000 mcg/ Dextrose) 500 mls @ 37.5 mls/hr IV TITR [facility]; Protocol Last Admin: 12/30/18 10:13 Dose: Not Given Meropenem 1 gm/ Dextrose 100 mls @ 0 mls/hr IVPB Q12H [facility] Last Admin: 12/30/18 02:22 Dose: 100 mls/hr Sodium Chloride (Normal Saline -) 1,000 mls @ 100 mls/hr IV ASDIR [facility] Last Admin: 12/30/18 10:18 Dose: 100 mls/hr Insulin Aspart (Novolog Vial Sliding Scale -) 1 vial SQ Q6H [facility]; Protocol Last Admin: 12/30/18 10:13 Dose: Not Given Lamotrigine (Lamictal -) 100 mg PO BID [facility] Mupirocin (Bactroban Ointment (For Decolonization) -) 1 applic NS BID [facility] Stop: 01/03/19 09:59 Last Admin: 12/30/18 09:44 Dose: 1 applic Oxcarbazepine (Trileptal -) 300 mg PO HS [facility] Last Admin: 12/29/18 21:57 Dose: 300 mg Oxcarbazepine (Trileptal -) 600 mg PO DAILY [facility] Last Admin: 12/30/18 09:55 Dose: 600 mg Pantoprazole Sodium (Protonix -) 40 mg PO ACBK [facility] Last Admin: 12/30/18 06:23 Dose: 40 mg Sevelamer Carbonate (Renvela -) 800 mg PO TID [facility] Last Admin: 12/30/18 06:23 Dose: 800 mg Solifenacin (Vesicare -) 5 mg PO DAILY [facility] Last Admin: 12/30/18 09:55 Dose: 5 mg ASSESSMENT AND PLAN: UTI Septic Shock Acute on Chronic Renal Failure Aguero's Syndrome Seizure Disorder Schizoaffective Disorder DM - continue antibiotics - f/u cultures - IVF to keep CVP 8-12 - taper pressors to maintain MAP >65 - monitor urine output, creatinine - glucose control - PO as tolerated - DVT prophylaxis - continue ICU monitoring critical care time spent in reviewing chart, evaluating patient and formulating plan 35 min
[2018-12-30] MEDS: BRIMONIDINE TARTRATE 0.15% OPHTHALMIC 5 ML BOTTLE OD SCH (12:38)
[2018-12-30] MEDS ORDERED: IRON SUCROSE INJECTION 300 MG in SODIUM CHLORIDE 235 ML IVPB ONE (13:00)
--- NOTE | 2018-12-30 13:28 | PN ---
Physical Exam: SUBJECTIVE: Patient seen and examined at the bedside. Is more awake and alert today and eating. Aware that she is in the hospital and being treated for an infection. States she has some suprapubic pain. Denies cp, sob, n/v/c/d, fever, chills, weakness, numbness, tingling, headache, lightheadedness, dizziness. OBJECTIVE: Vital Signs Period Temp Pulse Resp BP Sys/Lombardi Pulse Ox Last 24 Hr 98.1 F-99.1 F 71-104 21-32 96-143/46-96 100-100 GENERAL: Awake and alert, Oriented to self and location. Able to follow basic commands and answer simple questions EYES: Asymmetric pupils L>R, propoptosis of the left eye LUNGS: Breath sounds equal, clear to auscultation bilaterally. No wheezes, and no crackles. No accessory muscle use. HEART: Regular rate and rhythm, normal S1 and S2 without murmur, rub or gallop. ABDOMEN: Soft, nontender, not distended, normoactive bowel sounds, no guarding, no rebound, no masses. MUSCULOSKELETAL: Normal range of motion at all joints. No bony deformities or tenderness. UPPER EXTREMITIES: 2+ pulses, warm, well-perfused. No cyanosis. No peripheral edema. LOWER EXTREMITIES: 2+ pulses, warm, well-perfused. No peripheral edema. NEUROLOGICAL: Follows basic commands, unable to assess full neurological exam PSYCHIATRIC: Cooperative. SKIN: Warm, dry, normal turgor, sporadic excoriations, dermatitis rash on face, ear, upper and lower extremities noted. Laboratory Results - last 24 hr 12/29/18 12/29/18 12/29/18 04:10 14:51 22:39 WBC RBC Hgb Hct MCV MCH MCHC RDW Plt Count MPV Sodium Potassium Chloride Carbon Dioxide Anion Gap BUN Creatinine Est GFR (CKD-EPI)AfAm Est GFR (CKD-EPI)NonAf POC Glucometer 208 187 Random Glucose Calcium Total Bilirubin AST ALT Alkaline Phosphatase Total Protein Albumin Stool Occult Blood Negative 12/30/18 12/30/18 12/30/18 05:13 05:30 05:30 WBC 9.4 RBC 2.93 L Hgb 8.8 L Hct 26.4 L MCV 90.2 MCH 30.1 MCHC 33.3 RDW 13.2 Plt Count 169 MPV 8.9 Sodium 144 Potassium 4.0 Chloride 115 H Carbon Dioxide 22 Anion Gap 7 L BUN 20.7 H Creatinine 1.5 H Est GFR (CKD-EPI)AfAm 45.62 Est GFR (CKD-EPI)NonAf 39.36 POC Glucometer 183 Random Glucose 202 H Calcium 8.5 Total Bilirubin 0.2 AST 18 ALT 10 L Alkaline Phosphatase 121 H Total Protein 5.6 L Albumin 2.1 L Stool Occult Blood 12/30/18 10:12 WBC RBC Hgb Hct MCV MCH MCHC RDW Plt Count MPV Sodium Potassium Chloride Carbon Dioxide Anion Gap BUN Creatinine Est GFR (CKD-EPI)AfAm Est GFR (CKD-EPI)NonAf POC Glucometer 146 Random Glucose Calcium Total Bilirubin AST ALT Alkaline Phosphatase Total Protein Albumin Stool Occult Blood Active Medications Generic Name Dose Route Start Last Admin Trade Name Freq PRN Reason Stop Dose Admin Acetaminophen 1,000 mg 12/29/18 16:52 12/29/18 17:28 Ofirmev Injection - IVPB 1,000 mg Q6H PRN Administration PAIN LEVEL 6-10 Brimonidine Tartrate 1 drop 12/29/18 12:55 12/30/18 12:38 Alphagan 0.15% - OD 1 drop DAILY DEBRA Administration Chlorhexidine Gluconate 1 applic 12/29/18 22:00 12/29/18 21:53 Hibiclens For Decolonization - TP 1 applic HS DEBRA Administration Clonazepam 1 mg 12/29/18 10:00 12/30/18 09:54 Klonopin - PO 1 mg BID DEBRA Administration Clotrimazole 1 applic 12/29/18 10:00 12/30/18 09:44 Lotrisone Cream (Small Tube) TP 1 applic BID DEBRA Administration Dorzolamide HCl 1 drop 12/29/18 12:24 12/30/18 09:45 Trusopt 2% OS 1 drop DAILY DEBRA Administration Duloxetine HCl 30 mg 12/29/18 10:00 12/30/18 09:55 Cymbalta - PO 30 mg BID DEBRA Administration Folic Acid 1 mg 12/29/18 10:00 12/30/18 09:55 Folic Acid - PO 1 mg DAILY DEBRA Administration Heparin Sodium (Porcine) 5,000 unit 12/29/18 06:00 12/30/18 06:23 Heparin - SQ 5,000 unit TID DEBRA Administration Hydrocortisone 1 applic 12/29/18 10:00 12/30/18 09:56 Anusol 2.5% Hc Cream - RC 1 applic BID DEBRA Administration Norepinephrine Bitartrate 4, 500 mls @ 37.5 mls/hr 12/29/18 03:45 12/30/18 10 :13 000 mcg/ Dextrose IV Not Given TITR DEBRA Protocol 5 MCG/MIN Meropenem 1 gm/ Dextrose 100 mls @ 0 mls/hr 12/29/18 15:00 12/30/18 02:22 IVPB 100 mls/hr Q12H DEBRA Administration As Directed Sodium Chloride 1,000 mls @ 100 mls/hr 12/29/18 11:15 12/30/18 10:18 Normal Saline - IV 100 mls/hr ASDIR DEBRA Administration Iron Sucrose 300 mg/ Sodium 250 mls @ 166.667 mls/hr 12/30/18 13:00 Chloride IVPB 12/30/18 14:29 ONCE ONE Insulin Aspart 1 vial 12/29/18 04:15 12/30/18 10:13 Novolog Vial Sliding Scale - SQ Not Given Q6H DEBRA Protocol Lamotrigine 100 mg 12/30/18 22:00 Lamictal - PO BID DEBRA Mupirocin 1 applic 12/29/18 10:00 12/30/18 09:44 Bactroban Ointment (For Decolonization) - NS 01/03/19 09:59 1 applic BID DEBRA Administration Oxcarbazepine 300 mg 12/29/18 22:00 12/29/18 21:57 Trileptal - PO 300 mg HS DEBRA Administration Oxcarbazepine 600 mg 12/29/18 10:00 12/30/18 09:55 Trileptal - PO 600 mg DAILY DEBRA Administration Pantoprazole Sodium 40 mg 12/29/18 07:00 12/30/18 06:23 Protonix - PO 40 mg ACBK DEBRA Administration Sevelamer Carbonate 800 mg 12/29/18 06:00 12/30/18 06:23 Renvela - PO 800 mg TID DEBRA Administration Solifenacin 5 mg 12/29/18 10:00 12/30/18 09:55 Vesicare - PO 5 mg DAILY DEBRA Administration ASSESSMENT/PLAN: Noreen Copeland is a 53 year old female with a past medical history of Turners Syndrome, Schizoaffective disorder, 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 Septic Shock secondary to UTI T2DM CKD Anemia Proptosis NEUROLOGIC - awake and alert x2 - continue home seizure medications lamotrigine and oxcarbamazepine CARDIOLOGY - septic shock refractory to 3L boluses in ED - gave 500cc bolus in ICU - central line placed - Levophed, titrate as tolerated to maintain MAP>65 - CVP monitoring - troponin 0.06, likely demand - EKG showing sinus rhythm, age indeterminate inferior infarct (q waves), QTc 428 - echo ordered RESPIRATORY - satting well on NC, continue to monitor RENAL - CRE 1.7, unclear of baseline, hx of CKD - NS 100cc/hr - recheck in AM - renal/bladder U/S - golimumab to start 01/12 for kidney failure - consider renal consult GASTROINTESTINAL - FOBT ordered - protonix 40mg daily GENITOURINARY - home hippurate - home oxybutynin INFECTIOUS DISEASE - WBC 10.4, afebrile - allergic to PCN and azithromycin - received Levaquin in ED - continue meropenem 1g q12h, caution with use as patient has seizure disorder, give after patient has received home AEDs - continue steroid and antifungal cream for rash - will get derm consult to evaluate rash - Blood cultures negative - urine cultures positive for E. coli - ID following (Dr. Drake), recommendations appreciated ENDOCRINE - BGM ACHS - ISS HEMATOLOGY - anemia, Hgb 8.8, unclear of baseline, - FOBT negative - iron studies suggesting anemia of chronic disease, reticulocyte count elevated MUSCULOSKELETAL - CT orbits showing borderline proptosis of L eye, curvilinear calcification along left lacrimal gland - restart home eye drops> trusopt and alphagan - opthalmology consultation placed to evaluate eye drop regimen - hydrocortisone cream to nose and bilateral ears F/E/N - NS 100cc/hr to maintain CVP - continue to monitor electrolytes and replete as necessary - diabetic/ Na controlled diet, advance diet as tolerated LINES - L hand inserted 12/28 PROPHYLAXIS - heparin 5000 units subq tid CODE - full code DISPO - continue to monitor in ICU Visit type - Emergency Visit Emergency Visit: No - New Patient This patient is new to me today: No - Critical Care Critical Care patient: Yes Total Critical Care Time (in minutes): 36 Critical Care Statement: The care of this patient involved high complexity decision making to prevent further life threatening deterioration of the patient 's condition and/or to evaluate & treat vital organ system(s) failure or risk of failure.
[2018-12-30] MEDS ORDERED: DEXTROSE 5%-WATER 100 ML IVPB ONE (13:48)
[2018-12-30] MEDS ORDERED: MEROPENEM 1 GM VIAL (RESTRICTED TO ID) IVPB ONE (13:48)
--- NOTE | 2018-12-30 16:50 | ECHO ---
Name: ADITI MCCURDY Exam:Adult Echocardiogram Study Date: 12/30/2018 12:22 PM Age: 53 yrs Reason For Study: evaluate for cardiac function Height: 63 in Weight: 250 lb BSA: 2.1 m2 MMode/2D Measurements & Calculations IVSd: 1.1 cm Ao root diam: 3.7 cm LVIDd: 4.9 cm LA dimension: 2.8 cm LVIDs: 2.8 cm ACS: 2.1 cm LVPWd: 0.88 cm IVSs: 1.7 cm LVPWs: 1.5 cm EDV(Teich): 111.5 ml ESV(Teich): 30.2 ml Doppler Measurements & Calculations MV E max june: 61.5 cm/sec Ao V2 max: 130.3 cm/sec MV A max june: 71.1 cm/sec Ao max P.8 mmHg MV E/A: 0.86 Ao V2 mean: 106.1 cm/sec Ao mean P.8 mmHg Ao V2 VTI: 22.8 cm TR max june: 194.8 cm/sec PI end-d june: 141.2 cm/sec TR max P.2 mmHg Med Peak E' June: 4.6 cm/sec Med E/e': 13.3 Lat Peak E' June: 6.8 cm/sec Lat E/e': 9.0 Procedure The study was technically good with many images being of high quality. Left Ventricle The left ventricular size, thickness and function are normal. Right Ventricle The right ventricle is normal in size and function. Atria Normal left and right atrial size and function. Mitral Valve The mitral valve is normal in structure and function. There is trace mitral regurgitation. Tricuspid Valve The tricuspid valve is normal. There is trace tricuspid regurgitation. There was insufficient TR dete cted to calculate RV systolic pressure. Aortic Valve The aortic valve is normal in structure and function. The aortic valve opens well. The aortic valve i s trileaflet. No aortic regurgitation is present. Pulmonic Valve The pulmonic valve is not well visualized. Trace pulmonic valvular regurgitation. Great Vessels Borderline aortic root dilatation. Pericardium/Pleura There is no pericardial effusion. Interpretation Summary There is no comparison study available. The left ventricular size, thickness and function are normal The right ventricle is normal in size and function. Borderline aortic root dilatation. Trace pulmonic valvular regurgitation. There is trace tricuspid regurgitation. There is trace mitral regurgitation. Magdaleno Adamson MD 12/30/2018 04:49 PM
[2018-12-30] MEDS: ACETAMINOPHEN 1000 MG/100 ML VIAL (NON FORMULARY) IVPB PRN (17:43)
[2018-12-30] MEDS ORDERED: NOREPINEPHRINE BITARTRATE 4 MG/4 ML ML IV ONE (20:22)
[2018-12-30] MEDS ORDERED: NOREPINEPHRINE BITARTRATE 8,000 MCG in DEXTROSE 5%-WATER - 492 ML IV SCH (20:34)
[2018-12-30] MEDS: lamoTRIgine 100 MG TABLET (FP) PO SCH (22:29)
[2018-12-30] MEDS: OXcarbazepine 150 MG TABLET (UD) PO SCH (22:29)
[2018-12-30] MEDS: CHLORHEXIDINE GLUCONATE 4% CLEANSER FOR DECOLONIZATION TP SCH (22:32)
[2018-12-31] MEDS: ACETAMINOPHEN 1000 MG/100 ML VIAL (NON FORMULARY) IVPB PRN (02:46)
[2018-12-31] MEDS ORDERED: MEROPENEM 1 GM VIAL (RESTRICTED TO ID) IVPB ONE ×2 (03:26→15:37)
[2018-12-31] MEDS ORDERED: DEXTROSE 5%-WATER 100 ML IVPB ONE ×2 (03:26→15:37)
[2018-12-31] MEDS: MEROPENEM 1 GM in DEXTROSE 5%-WATER 100 ML IVPB SCH ×2 (03:34→15:45)
[2018-12-31] MEDS: PANTOPRAZOLE 40 MG TABLET (FP) PO SCH (06:36)
[2018-12-31] MEDS: HEPARIN NA (PORCINE) 5,000 UNITS/ML 1ML VIAL SQ SCH ×3 (06:36→22:15)
[2018-12-31] MEDS: INSULIN SLIDING SCALE (NOVOLOG) 1 VIAL SQ SCH ×3 (06:36→17:13)
[2018-12-31] MEDS: SEVELAMER CARBONATE 800 MG TAB (FP) PO SCH ×3 (06:36→22:17)
[2018-12-31 06:43] LABS: HEMATOCRIT 24.9 % (32.4-45.2); HEMOGLOBIN 8.4 GM/dL (10.7-15.3); MCH 30.3 pg (25.7-33.7); MCHC 33.6 g/dl (32.0-36.0); MEAN CELL VOLUME 90.2 fl (80-96); MEAN PLT VOLUME 9.4 fl (7.5-11.1); PLATELET COUNT 172 K/MM3 (134-434); RBC 2.76 M/mm3 (3.60-5.2); RDW 13.1 % (11.6-15.6); WHITE BLOOD COUNT 8.9 K/mm3 (4.0-10.0)
[2018-12-31 06:57] LABS: BLOOD UREA NITROGEN 22.8 mg/dL (7-18); CALCIUM 8.3 mg/dL (8.5-10.1); CREATININE 1.9 mg/dL (0.55-1.3); MAGNESIUM 1.6 mg/dL (1.8-2.4); PHOSPHOROUS 3.3 mg/dL (2.5-4.9); POTASSIUM 4.1 mmol/L (3.5-5.1)
[2018-12-31] MEDS ORDERED: MAGNESIUM OXIDE 400 MG TABLET (FP) PO ONE (07:00)
[2018-12-31] MEDS ORDERED: PT OWN MED DRAWER 7, Y5N ONE ×2 (09:48→22:22)
[2018-12-31] MEDS: OXcarbazepine 300 MG TABLET (UD) PO SCH ×2 (09:49→22:20)
[2018-12-31] MEDS: FOLIC ACID 1 MG TABLET (FP) PO SCH (09:49)
[2018-12-31] MEDS: clonazePAM 0.5 MG TABLET PO SCH ×2 (09:49→22:16)
[2018-12-31] MEDS: DULoxetine HCL 30 MG CAPSULE.DR PO SCH ×2 (09:49→22:15)
[2018-12-31] MEDS: SOLIFENACIN SUCCINATE 5 MG TAB PO SCH (09:50)
[2018-12-31] MEDS: lamoTRIgine 100 MG TABLET (FP) PO SCH ×2 (09:50→22:56)
[2018-12-31] MEDS: DORZOLAMIDE 2% HCL OPHTHALMIC SOLUTION 10 ML BOTTLE OS SCH (09:53)
[2018-12-31] MEDS: BRIMONIDINE TARTRATE 0.15% OPHTHALMIC 5 ML BOTTLE OD SCH (09:53)
[2018-12-31] MEDS: MUPIROCIN 2% TOPICAL OINTMENT FOR DECOLONIZATION NS SCH ×2 (09:54→22:15)
[2018-12-31] MEDS: CLOTRIMAZOLE/BETAMET DIPROP 15 GM TUBE TP SCH ×2 (09:54→22:17)
[2018-12-31] MEDS: HYDROCORTISONE 2.5% TOPICAL CREAM 30 GM TUBE RC SCH ×2 (09:55→22:14)
[2018-12-31] MEDS: SODIUM CHLORIDE 1,000 ML IV SCH (11:47)
--- NOTE | 2018-12-31 13:02 | PN ---
Physical Exam: SUBJECTIVE: Patient seen and examined at the bedside. States she is feeling better and asking when she will be leaving the hospital. Says that she continues to have intermittent leg pain. Denies cp, sob, abd pain, n/v, fever, chills, weakness, numbness, tingling. This morning, Levophed was decreased to 2mcg with adequate blood pressures. OBJECTIVE: Vital Signs Period Temp Pulse Resp BP Sys/Lombardi Pulse Ox Last 24 Hr 98 F-101.2 F 68-125 12-30 64-139/31-68 96-99 GENERAL: Awake and alert, Oriented to self and location. Able to follow basic commands and answer simple questions EYES: Asymmetric pupils L>R, propoptosis of the left eye LUNGS: Breath sounds equal, clear to auscultation bilaterally. No wheezes, and no crackles. No accessory muscle use. HEART: Regular rate and rhythm, normal S1 and S2 without murmur, rub or gallop. ABDOMEN: Soft, nontender, not distended, normoactive bowel sounds, no guarding, no rebound, no masses. MUSCULOSKELETAL: Normal range of motion at all joints. No bony deformities or tenderness. UPPER EXTREMITIES: 2+ pulses, warm, well-perfused. No cyanosis. No peripheral edema. LOWER EXTREMITIES: 2+ pulses, warm, well-perfused. No peripheral edema. NEUROLOGICAL: Follows basic commands, CN II-XII intact, normal muscle strength bilaterally, upper and lower extremities. PSYCHIATRIC: Cooperative. SKIN: Warm, dry, normal turgor, sporadic excoriations, dermatitis rash on face, ear, upper and lower extremities noted. Laboratory Results - last 24 hr 12/30/18 12/30/18 12/31/18 16:54 22:09 05:40 WBC 8.9 RBC 2.76 L Hgb 8.4 L Hct 24.9 L MCV 90.2 MCH 30.3 MCHC 33.6 RDW 13.1 Plt Count 172 MPV 9.4 Sodium Potassium Chloride Carbon Dioxide Anion Gap BUN Creatinine Est GFR (CKD-EPI)AfAm Est GFR (CKD-EPI)NonAf POC Glucometer 140 175 Random Glucose Calcium Phosphorus Magnesium 12/31/18 12/31/18 12/31/18 05:40 06:35 11:44 WBC RBC Hgb Hct MCV MCH MCHC RDW Plt Count MPV Sodium 140 Potassium 4.1 Chloride 113 H Carbon Dioxide 20 L Anion Gap 7 L BUN 22.8 H Creatinine 1.9 H Est GFR (CKD-EPI)AfAm 34.28 Est GFR (CKD-EPI)NonAf 29.58 POC Glucometer 190 152 Random Glucose 193 H Calcium 8.3 L Phosphorus 3.3 Magnesium 1.6 L Active Medications Generic Name Dose Route Start Last Admin Trade Name Freq PRN Reason Stop Dose Admin Acetaminophen 1,000 mg 12/29/18 16:52 12/31/18 02:46 Ofirmev Injection - IVPB 1,000 mg Q6H PRN Administration PAIN LEVEL 6-10 Brimonidine Tartrate 1 drop 12/29/18 12:55 12/31/18 09:53 Alphagan 0.15% - OD 1 drop DAILY DEBRA Administration Chlorhexidine Gluconate 1 applic 12/29/18 22:00 12/30/18 22:32 Hibiclens For Decolonization - TP 1 applic HS DEBRA Administration Clonazepam 1 mg 12/29/18 10:00 12/31/18 09:49 Klonopin - PO 1 mg BID DEBRA Administration Clotrimazole 1 applic 12/29/18 10:00 12/31/18 09:54 Lotrisone Cream (Small Tube) TP 1 applic BID DEBRA Administration Dorzolamide HCl 1 drop 12/29/18 12:24 12/31/18 09:53 Trusopt 2% OS 1 drop DAILY DEBRA Administration Duloxetine HCl 30 mg 12/29/18 10:00 12/31/18 09:49 Cymbalta - PO 30 mg BID DEBRA Administration Folic Acid 1 mg 12/29/18 10:00 12/31/18 09:49 Folic Acid - PO 1 mg DAILY DEBRA Administration Heparin Sodium (Porcine) 5,000 unit 12/29/18 06:00 12/31/18 06:36 Heparin - SQ 5,000 unit TID DEBRA Administration Hydrocortisone 1 applic 12/29/18 10:00 12/31/18 09:55 Anusol 2.5% Hc Cream - RC 1 applic BID DEBRA Administration Meropenem 1 gm/ Dextrose 100 mls @ 0 mls/hr 12/29/18 15:00 12/31/18 03:34 IVPB 100 mls/hr Q12H DEBRA Administration As Directed Sodium Chloride 1,000 mls @ 100 mls/hr 12/29/18 11:15 12/31/18 11:47 Normal Saline - IV 100 mls/hr ASDIR DEBRA Administration Norepinephrine Bitartrate 8, 500 mls @ 18.75 mls/hr 12/30/18 20:34 12/31/18 07:30 000 mcg/ Dextrose IV 2 mcg/min TITR DEBRA 7.5 mls/hr Administration Protocol 5 MCG/MIN Insulin Aspart 1 vial 12/30/18 16:30 12/31/18 11:47 Novolog Vial Sliding Scale - SQ Not Given ACHS DEBRA Protocol Lamotrigine 100 mg 12/30/18 22:00 12/31/18 09:50 Lamictal - PO 100 mg BID DEBRA Administration Mupirocin 1 applic 12/29/18 10:00 12/31/18 09:54 Bactroban Ointment (For Decolonization) - NS 01/03/19 09:59 1 applic BID DEBRA Administration Oxcarbazepine 600 mg 12/29/18 10:00 12/31/18 09:49 Trileptal - PO 600 mg DAILY DEBRA Administration Oxcarbazepine 300 mg 12/31/18 22:00 Trileptal - PO HS DEBRA Pantoprazole Sodium 40 mg 12/29/18 07:00 12/31/18 06:36 Protonix - PO 40 mg ACBK DEBRA Administration Sevelamer Carbonate 800 mg 12/29/18 06:00 12/31/18 06:36 Renvela - PO 800 mg TID DEBRA Administration Solifenacin 5 mg 12/29/18 10:00 12/31/18 09:50 Vesicare - PO 5 mg DAILY DEBRA Administration ASSESSMENT/PLAN: Noreen Copeland is a 53 year old female with a past medical history of Turners Syndrome, Schizoaffective disorder, 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 Septic Shock secondary to UTI T2DM CKD Anemia Proptosis NEUROLOGIC - awake and alert x2 - continue home seizure medications lamotrigine and oxcarbamazepine CARDIOLOGY - treating for septic shock as BP was refractory to fluid boluses - central line placed - Levophed, titrate as tolerated to maintain MAP>65 - CVP monitoring, fluid resuscitation to have valuues between 8-12 - troponin 0.06, likely demand - EKG showing sinus rhythm, age indeterminate inferior infarct (q waves), QTc 428 - echo ordered showing left ventricular size, function is normal, trace mitral, tricuspid, pulmonic valve regurg - DVT study negative RESPIRATORY - satting well on NC, continue to monitor - CXR for continued fevers, no acute infiltrate noted, no evidence of aspiration RENAL - CRE 1.9, baseline 1.19 as per [facility], KIRAN, likely in setting of sepsis - NS 100cc/hr - renal/bladder U/S showing simple renal cysts, small left kidney relative to R - consider renal consult GASTROINTESTINAL - FOBT negative - protonix 40mg daily GENITOURINARY - home hippurate - home oxybutynin INFECTIOUS DISEASE - WBC 8.9 today, had fever overnight - allergic to PCN and azithromycin - received Levaquin in ED - continue meropenem 1g q12h, caution with use as patient has seizure disorder - can deescalate antibiotic therapy as per ID - continue steroid and antifungal cream for rash - will get derm consult to evaluate rash - Blood cultures negative - urine cultures positive for Klebsiella, multiple sensitivities - ID following (Dr. Drake), recommendations appreciated - if continue ENDOCRINE - BGM ACHS - ISS HEMATOLOGY - anemia, Hgb 8.4 today, unclear of baseline, - FOBT negative - iron studies suggesting anemia of chronic disease, reticulocyte count elevated MUSCULOSKELETAL - CT orbits showing borderline proptosis of L eye, curvilinear calcification along left lacrimal gland - restart home eye drops> trusopt and alphagan to left eye - hydrocortisone cream to nose and bilateral ears - As per last admission at [facility], golimumab for rheumatoid arthritis once monthly F/E/N - NS 100cc/hr to maintain CVP - continue to monitor electrolytes and replete as necessary - diabetic/ Na controlled diet LINES - R IJ insterted 12/29 PROPHYLAXIS - heparin 5000 units subq tid CODE - full code DISPO - continue to monitor in ICU Visit type - Emergency Visit Emergency Visit: No - New Patient This patient is new to me today: No - Critical Care Critical Care patient: Yes Total Critical Care Time (in minutes): 38 Critical Care Statement: The care of this patient involved high complexity decision making to prevent further life threatening deterioration of the patient 's condition and/or to evaluate & treat vital organ system(s) failure or risk of failure.
--- NOTE | 2018-12-31 13:37 | PN ---
Progress Note (short form) - Note Progress Note: sleepy but arousable no complaints remains on levophed- being tapered intermittent fevers Vital Signs Period Temp Pulse Resp BP Sys/Lombardi Pulse Ox Last 24 Hr 98 F-101.2 F 68-125 12-30 64-139/31-68 96-99 cor-rrr llungs decreased bs at bases abd soft,nt ext no edema +plaques on abd and left hand right ear with skin lesions hinds with cloudy urine CBC, BMP 12/31/18 05:40 12/31/18 05:40 Microbiology 12/28/18 21:15 Urine - Urine - Catheterized Urine Culture - Final Klebsiella Pneumoniae 12/28/18 20:15 Blood - Peripheral Venous Blood Culture - Preliminary NO GROWTH OBTAINED AFTER 48 HOURS, INCUBATION TO CONTINUE FOR 3 DAYS. 12/28/18 20:50 Blood - Peripheral Venous Blood Culture - Preliminary NO GROWTH OBTAINED AFTER 48 HOURS, INCUBATION TO CONTINUE FOR 3 DAYS. Current Medications Acetaminophen (Ofirmev Injection -) 1,000 mg IVPB Q6H PRN PRN Reason: PAIN LEVEL 6-10 Last Admin: 12/31/18 02:46 Dose: 1,000 mg Brimonidine Tartrate (Alphagan 0.15% -) 1 drop OD DAILY [facility] Last Admin: 12/31/18 09:53 Dose: 1 drop Chlorhexidine Gluconate (Hibiclens For Decolonization -) 1 applic TP HS [facility] Last Admin: 12/30/18 22:32 Dose: 1 applic Clonazepam (Klonopin -) 1 mg PO BID [facility] Last Admin: 12/31/18 09:49 Dose: 1 mg Clotrimazole (Lotrisone Cream (Small Tube)) 1 applic TP BID [facility] Last Admin: 12/31/18 09:54 Dose: 1 applic Dorzolamide HCl (Trusopt 2%) 1 drop OS DAILY [facility] Last Admin: 12/31/18 09:53 Dose: 1 drop Duloxetine HCl (Cymbalta -) 30 mg PO BID [facility] Last Admin: 12/31/18 09:49 Dose: 30 mg Folic Acid (Folic Acid -) 1 mg PO DAILY [facility] Last Admin: 12/31/18 09:49 Dose: 1 mg Heparin Sodium (Porcine) (Heparin -) 5,000 unit SQ TID [facility] Last Admin: 12/31/18 06:36 Dose: 5,000 unit Hydrocortisone (Anusol 2.5% Hc Cream -) 1 applic RC BID [facility] Last Admin: 12/31/18 09:55 Dose: 1 applic Meropenem 1 gm/ Dextrose 100 mls @ 0 mls/hr IVPB Q12H [facility] Last Admin: 12/31/18 03:34 Dose: 100 mls/hr Sodium Chloride (Normal Saline -) 1,000 mls @ 100 mls/hr IV ASDIR [facility] Last Admin: 12/31/18 11:47 Dose: 100 mls/hr Norepinephrine Bitartrate 8, (000 mcg/ Dextrose) 500 mls @ 18.75 mls/hr IV TITR [facility]; Protocol Last Admin: 12/31/18 07:30 Dose: 2 mcg/min, 7.5 mls/hr Insulin Aspart (Novolog Vial Sliding Scale -) 1 vial SQ ACHS [facility]; Protocol Last Admin: 12/31/18 11:47 Dose: Not Given Lamotrigine (Lamictal -) 100 mg PO BID [facility] Last Admin: 12/31/18 09:50 Dose: 100 mg Mupirocin (Bactroban Ointment (For Decolonization) -) 1 applic NS BID [facility] Stop: 01/03/19 09:59 Last Admin: 12/31/18 09:54 Dose: 1 applic Oxcarbazepine (Trileptal -) 600 mg PO DAILY [facility] Last Admin: 12/31/18 09:49 Dose: 600 mg Oxcarbazepine (Trileptal -) 300 mg PO HS [facility] Pantoprazole Sodium (Protonix -) 40 mg PO ACBK [facility] Last Admin: 12/31/18 06:36 Dose: 40 mg Sevelamer Carbonate (Renvela -) 800 mg PO TID [facility] Last Admin: 12/31/18 06:36 Dose: 800 mg Solifenacin (Vesicare -) 5 mg PO DAILY [facility] Last Admin: 12/31/18 09:50 Dose: 5 mg a/p sepsis- still on pressors ?kleb UTI- no need to isolate recurrent fever- repeat cxray, repeat blood culture for temp of 101 or greater, ct scan abd/pelvis, am cortisol blind left eye colostomy seizure disorder probable psoriasis kiran continue meropenem dermatology evaluation- continue steroid cream/antifungal cream for now continue iv hydration Problem List - Problems (1) Sepsis Code(s): A41.9 - SEPSIS, UNSPECIFIED ORGANISM Qualifiers: Sepsis type: sepsis due to unspecified organism Sepsis acute organ dysfunction status: with acute organ dysfunction Severe sepsis acute organ dysfunction type: acute renal failure Acute renal failure type: unspecified Severe sepsis shock status: unspecified Qualified Code(s): A41.9 - Sepsis, unspecified organism; R65.20 - Severe sepsis without septic shock; N17.9 - Acute kidney failure, unspecified (2) UTI (urinary tract infection) Code(s): N39.0 - URINARY TRACT INFECTION, SITE NOT SPECIFIED Qualifiers: Urinary tract infection type: site unspecified Hematuria presence: without hematuria Qualified Code(s): N39.0 - Urinary tract infection, site not specified (3) Penicillin allergy Code(s): Z88.0 - ALLERGY STATUS TO PENICILLIN (4) Rash Code(s): R21 - RASH AND OTHER NONSPECIFIC SKIN ERUPTION (5) KIRAN (acute kidney injury) Code(s): N17.9 - ACUTE KIDNEY FAILURE, UNSPECIFIED
--- NOTE | 2018-12-31 14:39 | PN ---
Teaching Attending Note Name of Resident: Mata Escalante ATTENDING PHYSICIAN STATEMENT I saw and evaluated the patient. I reviewed the resident's note and discussed the case with the resident. I agree with the resident's findings and plan as documented. SUBJECTIVE: Pt seen and examined in the ICU. Remains on low dose levophed gtt. Denies shortness of breath or chest pain. Urine cultures growing klebsiella. OBJECTIVE: Vital Signs Period Temp Pulse Resp BP Sys/Lombardi Pulse Ox Last 24 Hr 98 F-101.2 F 68-125 12-29 64-139/31-68 96-99 Intake & Output 12/28/18 12/29/18 12/30/18 12/31/18 23:59 23:59 23:59 23:59 Intake Total 1763 3715 900 Output Total 1540 3040 1250 Balance 223 675 -350 Weight 113.398 kg 89 kg 92.7 kg 91.5 kg Gen: less tachypneic Heart: RRR Lung: scattered rhonchi Abd: soft, nontender Ext: no edema CBC, BMP 12/31/18 05:40 12/31/18 05:40 Active Medications Acetaminophen (Ofirmev Injection -) 1,000 mg IVPB Q6H PRN PRN Reason: PAIN LEVEL 6-10 Last Admin: 12/31/18 02:46 Dose: 1,000 mg Brimonidine Tartrate (Alphagan 0.15% -) 1 drop OD DAILY [facility] Last Admin: 12/31/18 09:53 Dose: 1 drop Chlorhexidine Gluconate (Hibiclens For Decolonization -) 1 applic TP HS [facility] Last Admin: 12/30/18 22:32 Dose: 1 applic Clonazepam (Klonopin -) 1 mg PO BID [facility] Last Admin: 12/31/18 09:49 Dose: 1 mg Clotrimazole (Lotrisone Cream (Small Tube)) 1 applic TP BID [facility] Last Admin: 12/31/18 09:54 Dose: 1 applic Dorzolamide HCl (Trusopt 2%) 1 drop OS DAILY [facility] Last Admin: 12/31/18 09:53 Dose: 1 drop Duloxetine HCl (Cymbalta -) 30 mg PO BID [facility] Last Admin: 12/31/18 09:49 Dose: 30 mg Folic Acid (Folic Acid -) 1 mg PO DAILY [facility] Last Admin: 12/31/18 09:49 Dose: 1 mg Heparin Sodium (Porcine) (Heparin -) 5,000 unit SQ TID [facility] Last Admin: 12/31/18 06:36 Dose: 5,000 unit Hydrocortisone (Anusol 2.5% Hc Cream -) 1 applic RC BID [facility] Last Admin: 12/31/18 09:55 Dose: 1 applic Meropenem 1 gm/ Dextrose 100 mls @ 0 mls/hr IVPB Q12H [facility] Last Admin: 12/31/18 03:34 Dose: 100 mls/hr Sodium Chloride (Normal Saline -) 1,000 mls @ 100 mls/hr IV ASDIR [facility] Last Admin: 12/31/18 11:47 Dose: 100 mls/hr Norepinephrine Bitartrate 8, (000 mcg/ Dextrose) 500 mls @ 18.75 mls/hr IV TITR [facility]; Protocol Last Admin: 12/31/18 07:30 Dose: 2 mcg/min, 7.5 mls/hr Insulin Aspart (Novolog Vial Sliding Scale -) 1 vial SQ ACHS [facility]; Protocol Last Admin: 12/31/18 11:47 Dose: Not Given Lamotrigine (Lamictal -) 100 mg PO BID [facility] Last Admin: 12/31/18 09:50 Dose: 100 mg Mupirocin (Bactroban Ointment (For Decolonization) -) 1 applic NS BID [facility] Stop: 01/03/19 09:59 Last Admin: 12/31/18 09:54 Dose: 1 applic Oxcarbazepine (Trileptal -) 600 mg PO DAILY [facility] Last Admin: 12/31/18 09:49 Dose: 600 mg Oxcarbazepine (Trileptal -) 300 mg PO HS [facility] Pantoprazole Sodium (Protonix -) 40 mg PO ACBK [facility] Last Admin: 12/31/18 06:36 Dose: 40 mg Sevelamer Carbonate (Renvela -) 800 mg PO TID [facility] Last Admin: 12/31/18 06:36 Dose: 800 mg Solifenacin (Vesicare -) 5 mg PO DAILY [facility] Last Admin: 12/31/18 09:50 Dose: 5 mg ASSESSMENT AND PLAN: UTI Septic Shock 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
--- NOTE | 2018-12-31 15:38 | PN ---
Progress Note, Physician Chief Complaint: AWAKE MORE ALERT PATIENT DENIES CP/SOB - Current Medication List Current Medications: Active Medications Acetaminophen (Ofirmev Injection -) 1,000 mg IVPB Q6H PRN PRN Reason: PAIN LEVEL 6-10 Last Admin: 12/31/18 02:46 Dose: 1,000 mg Brimonidine Tartrate (Alphagan 0.15% -) 1 drop OS DAILY [facility] Chlorhexidine Gluconate (Hibiclens For Decolonization -) 1 applic TP HS [facility] Last Admin: 12/30/18 22:32 Dose: 1 applic Clonazepam (Klonopin -) 1 mg PO BID [facility] Last Admin: 12/31/18 09:49 Dose: 1 mg Clotrimazole (Lotrisone Cream (Small Tube)) 1 applic TP BID [facility] Last Admin: 12/31/18 09:54 Dose: 1 applic Dorzolamide HCl (Trusopt 2%) 1 drop OS DAILY [facility] Last Admin: 12/31/18 09:53 Dose: 1 drop Duloxetine HCl (Cymbalta -) 30 mg PO BID [facility] Last Admin: 12/31/18 09:49 Dose: 30 mg Folic Acid (Folic Acid -) 1 mg PO DAILY [facility] Last Admin: 12/31/18 09:49 Dose: 1 mg Heparin Sodium (Porcine) (Heparin -) 5,000 unit SQ TID [facility] Last Admin: 12/31/18 06:36 Dose: 5,000 unit Hydrocortisone (Anusol 2.5% Hc Cream -) 1 applic RC BID [facility] Last Admin: 12/31/18 09:55 Dose: 1 applic Meropenem 1 gm/ Dextrose 100 mls @ 0 mls/hr IVPB Q12H [facility] Last Admin: 12/31/18 03:34 Dose: 100 mls/hr Sodium Chloride (Normal Saline -) 1,000 mls @ 100 mls/hr IV ASDIR [facility] Last Admin: 12/31/18 11:47 Dose: 100 mls/hr Norepinephrine Bitartrate 8, (000 mcg/ Dextrose) 500 mls @ 18.75 mls/hr IV TITR [facility]; Protocol Last Admin: 12/31/18 07:30 Dose: 2 mcg/min, 7.5 mls/hr Insulin Aspart (Novolog Vial Sliding Scale -) 1 vial SQ ACHS [facility]; Protocol Last Admin: 12/31/18 11:47 Dose: Not Given Lamotrigine (Lamictal -) 100 mg PO BID [facility] Last Admin: 12/31/18 09:50 Dose: 100 mg Mupirocin (Bactroban Ointment (For Decolonization) -) 1 applic NS BID [facility] Stop: 01/03/19 09:59 Last Admin: 12/31/18 09:54 Dose: 1 applic Oxcarbazepine (Trileptal -) 600 mg PO DAILY [facility] Last Admin: 12/31/18 09:49 Dose: 600 mg Oxcarbazepine (Trileptal -) 300 mg PO HS [facility] Pantoprazole Sodium (Protonix -) 40 mg PO ACBK [facility] Last Admin: 12/31/18 06:36 Dose: 40 mg Sevelamer Carbonate (Renvela -) 800 mg PO TID [facility] Last Admin: 12/31/18 06:36 Dose: 800 mg Solifenacin (Vesicare -) 5 mg PO DAILY [facility] Last Admin: 12/31/18 09:50 Dose: 5 mg - Objective Vital Signs: Vital Signs Temperature 98.0 F 12/31/18 10:00 Pulse Rate 68 12/31/18 12:00 Respiratory Rate 17 12/31/18 12:00 Blood Pressure 83/55 L 12/31/18 12:00 O2 Sat by Pulse Oximetry (%) 99 12/31/18 10:00 Constitutional: Yes: Mild Distress Eyes: Yes: WNL HENT: Yes: WNL Cardiovascular: Yes: Regular Rate and Rhythm Respiratory: Yes: CTA Bilaterally, On Nasal O2 Gastrointestinal: Yes: Soft Genitourinary: Yes: Incontinence Musculoskeletal: Yes: Muscle Weakness Edema: No Integumentary: Yes: Other Neurological: Yes: Pre-Existing Deficit Labs: CBC, BMP 12/31/18 05:40 12/31/18 05:40 INR, PTT INR 1.28 (0.83-1.09) H 12/28/18 20:50 Problem List - Problems (2) Toxic metabolic encephalopathy Code(s): G92 - TOXIC ENCEPHALOPATHY (3) KIRAN (acute kidney injury) Code(s): N17.9 - ACUTE KIDNEY FAILURE, UNSPECIFIED (4) Hypotension Code(s): I95.9 - HYPOTENSION, UNSPECIFIED Qualifiers: Hypotension type: unspecified hypotension type Qualified Code(s): I95.9 - Hypotension, unspecified (5) Sepsis Code(s): A41.9 - SEPSIS, UNSPECIFIED ORGANISM Qualifiers: Sepsis type: sepsis due to unspecified organism Sepsis acute organ dysfunction status: with acute organ dysfunction Severe sepsis acute organ dysfunction type: acute renal failure Acute renal failure type: unspecified Severe sepsis shock status: unspecified Qualified Code(s): A41.9 - Sepsis, unspecified organism; R65.20 - Severe sepsis without septic shock; N17.9 - Acute kidney failure, unspecified (6) UTI (urinary tract infection) Code(s): N39.0 - URINARY TRACT INFECTION, SITE NOT SPECIFIED Qualifiers: Urinary tract infection type: site unspecified Hematuria presence: without hematuria Qualified Code(s): N39.0 - Urinary tract infection, site not specified Assessment/Plan IV ABX PER ID RENAL EVAL APPRECIATED BP STABLE OFF PRESSORS DVT PROPHYLAXIS P EVAL OOB TO CHAIR TRANSFER TO [facility]
[2018-12-31] MEDS: CHLORHEXIDINE GLUCONATE 4% CLEANSER FOR DECOLONIZATION TP SCH (22:16)
[2018-12-31] MEDS: CLOTRIMAZOLE 1% VAGINAL CREAM WITH APPLICATOR 45 GM TUBE VG SCH (22:57)
[2019-01-01] MEDS ORDERED: DEXTROSE 5%-WATER 100 ML IVPB ONE ×2 (01:25→10:10)
[2019-01-01] MEDS ORDERED: MEROPENEM 1 GM VIAL (RESTRICTED TO ID) IVPB ONE (01:25)
[2019-01-01] MEDS: INSULIN SLIDING SCALE (NOVOLOG) 1 VIAL SQ SCH ×5 (02:12→22:38)
[2019-01-01] MEDS: MEROPENEM 1 GM in DEXTROSE 5%-WATER 100 ML IVPB SCH (02:14)
[2019-01-01] MEDS: PANTOPRAZOLE 40 MG TABLET (FP) PO SCH (06:46)
[2019-01-01] MEDS: HEPARIN NA (PORCINE) 5,000 UNITS/ML 1ML VIAL SQ SCH ×3 (06:46→22:24)
[2019-01-01] MEDS: SEVELAMER CARBONATE 800 MG TAB (FP) PO SCH ×3 (06:46→22:24)
[2019-01-01 07:57] LABS: HEMATOCRIT 23.6 % (32.4-45.2); HEMOGLOBIN 7.8 GM/dL (10.7-15.3); MCH 29.8 pg (25.7-33.7); MEAN CELL VOLUME 90.4 fl (80-96); MEAN PLT VOLUME 9.6 fl (7.5-11.1); PLATELET COUNT 142 K/MM3 (134-434); RBC 2.61 M/mm3 (3.60-5.2); RDW 13.5 % (11.6-15.6); WHITE BLOOD COUNT 5.4 K/mm3 (4.0-10.0)
[2019-01-01 08:33] LABS: BLOOD UREA NITROGEN 30.8 mg/dL (7-18); CREATININE 1.7 mg/dL (0.55-1.3); MAGNESIUM 1.8 mg/dL (1.8-2.4); PHOSPHOROUS 3.2 mg/dL (2.5-4.9); POTASSIUM 4.2 mmol/L (3.5-5.1)
[2019-01-01] MEDS ORDERED: PT OWN MED DRAWER 7, Y5N ONE (10:11)
[2019-01-01] MEDS: OXcarbazepine 300 MG TABLET (UD) PO SCH ×2 (10:12→22:28)
[2019-01-01] MEDS: clonazePAM 0.5 MG TABLET PO SCH ×2 (10:13→22:25)
[2019-01-01] MEDS: DULoxetine HCL 30 MG CAPSULE.DR PO SCH ×2 (10:13→22:24)
[2019-01-01] MEDS: CEFTRIAXONE 2 GM in DEXTROSE 5%-WATER 100 ML IVPB SCH (10:13)
[2019-01-01] MEDS: FOLIC ACID 1 MG TABLET (FP) PO SCH (10:13)
--- NOTE | 2019-01-01 10:13 | PN ---
Progress Note (short form) - Note Progress Note: awake eating breakfast no complaints levophed is off Vital Signs Period Temp Pulse Resp BP Sys/Lombardi Pulse Ox Last 24 Hr 98.0 F-98.5 F 68-105 17-20 83-140/52-70 98-98 cor-rrr lungs decreased bs at bses abd soft,nt hinds with cloudy urine ext no edema skin rash improved CBC, BMP 01/01/19 06:10 01/01/19 06:10 Microbiology 12/28/18 20:15 Blood - Peripheral Venous Blood Culture - Preliminary NO GROWTH OBTAINED AFTER 72 HOURS, INCUBATION TO CONTINUE FOR 2 DAYS. 12/28/18 20:50 Blood - Peripheral Venous Blood Culture - Preliminary NO GROWTH OBTAINED AFTER 72 HOURS, INCUBATION TO CONTINUE FOR 2 DAYS. 12/28/18 21:15 Urine - Urine - Catheterized Urine Culture - Final Klebsiella Pneumoniae Current Medications Acetaminophen (Ofirmev Injection -) 1,000 mg IVPB Q6H PRN PRN Reason: PAIN LEVEL 6-10 Last Admin: 12/31/18 02:46 Dose: 1,000 mg Brimonidine Tartrate (Alphagan 0.15% -) 1 drop OS DAILY [facility] Chlorhexidine Gluconate (Hibiclens For Decolonization -) 1 applic TP HS [facility] Last Admin: 12/31/18 22:16 Dose: 1 applic Clonazepam (Klonopin -) 1 mg PO BID [facility] Last Admin: 12/31/18 22:16 Dose: 1 mg Clotrimazole (Lotrisone Cream (Small Tube)) 1 applic TP BID [facility] Last Admin: 12/31/18 22:17 Dose: 1 applic Clotrimazole (Gyne-Lotrimin -) 1 applic VG HS [facility] Last Admin: 12/31/18 22:57 Dose: 1 applic Dorzolamide HCl (Trusopt 2%) 1 drop OS DAILY [facility] Last Admin: 12/31/18 09:53 Dose: 1 drop Duloxetine HCl (Cymbalta -) 30 mg PO BID [facility] Last Admin: 12/31/18 22:15 Dose: 30 mg Folic Acid (Folic Acid -) 1 mg PO DAILY [facility] Last Admin: 12/31/18 09:49 Dose: 1 mg Heparin Sodium (Porcine) (Heparin -) 5,000 unit SQ TID [facility] Last Admin: 01/01/19 06:46 Dose: 5,000 unit Hydrocortisone (Anusol 2.5% Hc Cream -) 1 applic RC BID [facility] Last Admin: 12/31/18 22:14 Dose: 1 applic Norepinephrine Bitartrate 8, (000 mcg/ Dextrose) 500 mls @ 18.75 mls/hr IV TITR [facility]; Protocol Last Titration: 01/01/19 08:54 Dose: 0 mcg/min, 0 mls/hr Ceftriaxone Sodium 2 gm/ (Dextrose) 100 mls @ 200 mls/hr IVPB DAILY [facility]; Protocol Sodium Chloride (1/2 Normal Saline) 1,000 mls @ 83 mls/hr IV ASDIR [facility] Insulin Aspart (Novolog Vial Sliding Scale -) 1 vial SQ ACHS [facility]; Protocol Last Admin: 01/01/19 07:00 Dose: Not Given Lamotrigine (Lamictal -) 100 mg PO BID [facility] Last Admin: 12/31/18 22:56 Dose: 100 mg Mupirocin (Bactroban Ointment (For Decolonization) -) 1 applic NS BID [facility] Stop: 01/03/19 09:59 Last Admin: 12/31/18 22:15 Dose: 1 applic Oxcarbazepine (Trileptal -) 600 mg PO DAILY [facility] Last Admin: 12/31/18 09:49 Dose: 600 mg Oxcarbazepine (Trileptal -) 300 mg PO HS [facility] Last Admin: 12/31/18 22:20 Dose: 300 mg Pantoprazole Sodium (Protonix -) 40 mg PO ACBK [facility] Last Admin: 01/01/19 06:46 Dose: 40 mg Sevelamer Carbonate (Renvela -) 800 mg PO TID [facility] Last Admin: 01/01/19 06:46 Dose: 800 mg Solifenacin (Vesicare -) 5 mg PO DAILY [facility] Last Admin: 12/31/18 09:50 Dose: 5 mg cxray-congestion a/p sepsis- still on pressors ?kleb UTI- no need to isolate recurrent fever-resolved- repeat blood culture for temp of 101 or greater, ct scan abd/pelvis,if fevers recur- am cortisol blind left eye colostomy seizure disorder probable psoriasis kiran pen allergy- reports rash as a child switch to ceftriaxone d/w icu resident dermatology evaluation- continue steroid cream/antifungal cream for now Problem List - Problems (1) Sepsis Code(s): A41.9 - SEPSIS, UNSPECIFIED ORGANISM Qualifiers: Sepsis type: sepsis due to unspecified organism Sepsis acute organ dysfunction status: with acute organ dysfunction Severe sepsis acute organ dysfunction type: acute renal failure Acute renal failure type: unspecified Severe sepsis shock status: unspecified Qualified Code(s): A41.9 - Sepsis, unspecified organism; R65.20 - Severe sepsis without septic shock; N17.9 - Acute kidney failure, unspecified (2) UTI (urinary tract infection) Code(s): N39.0 - URINARY TRACT INFECTION, SITE NOT SPECIFIED Qualifiers: Urinary tract infection type: site unspecified Hematuria presence: without hematuria Qualified Code(s): N39.0 - Urinary tract infection, site not specified (3) Penicillin allergy Code(s): Z88.0 - ALLERGY STATUS TO PENICILLIN (4) Rash Code(s): R21 - RASH AND OTHER NONSPECIFIC SKIN ERUPTION (5) KIRAN (acute kidney injury) Code(s): N17.9 - ACUTE KIDNEY FAILURE, UNSPECIFIED
[2019-01-01] MEDS: lamoTRIgine 100 MG TABLET (FP) PO SCH ×2 (10:22→22:25)
[2019-01-01] MEDS: SOLIFENACIN SUCCINATE 5 MG TAB PO SCH (10:23)
[2019-01-01] MEDS: BRIMONIDINE TARTRATE 0.15% OPHTHALMIC 5 ML BOTTLE OS SCH (10:24)
[2019-01-01] MEDS: DORZOLAMIDE 2% HCL OPHTHALMIC SOLUTION 10 ML BOTTLE OS SCH (10:26)
[2019-01-01] MEDS: CLOTRIMAZOLE/BETAMET DIPROP 15 GM TUBE TP SCH ×2 (10:27→22:34)
[2019-01-01] MEDS: MUPIROCIN 2% TOPICAL OINTMENT FOR DECOLONIZATION NS SCH ×2 (10:28→22:34)
[2019-01-01] MEDS ORDERED: FERRIC CARBOXYMALTOSE 750 MG in SODIUM CHLORIDE 250 ML IVPB ONE (10:32)
--- NOTE | 2019-01-01 10:32 | PN ---
Progress Note, Physician Chief Complaint: AWAKE MORE ALERT OFF OF BLOOD PRESSURE SUPPORT +APPETITE - Current Medication List Current Medications: Active Medications Acetaminophen (Ofirmev Injection -) 1,000 mg IVPB Q6H PRN PRN Reason: PAIN LEVEL 6-10 Last Admin: 12/31/18 02:46 Dose: 1,000 mg Brimonidine Tartrate (Alphagan 0.15% -) 1 drop OS DAILY [facility] Chlorhexidine Gluconate (Hibiclens For Decolonization -) 1 applic TP HS [facility] Last Admin: 12/31/18 22:16 Dose: 1 applic Clonazepam (Klonopin -) 1 mg PO BID [facility] Last Admin: 01/01/19 10:13 Dose: 1 mg Clotrimazole (Lotrisone Cream (Small Tube)) 1 applic TP BID [facility] Last Admin: 12/31/18 22:17 Dose: 1 applic Clotrimazole (Gyne-Lotrimin -) 1 applic VG HS [facility] Last Admin: 12/31/18 22:57 Dose: 1 applic Dorzolamide HCl (Trusopt 2%) 1 drop OS DAILY [facility] Last Admin: 12/31/18 09:53 Dose: 1 drop Duloxetine HCl (Cymbalta -) 30 mg PO BID [facility] Last Admin: 01/01/19 10:13 Dose: 30 mg Folic Acid (Folic Acid -) 1 mg PO DAILY [facility] Last Admin: 01/01/19 10:13 Dose: 1 mg Heparin Sodium (Porcine) (Heparin -) 5,000 unit SQ TID [facility] Last Admin: 01/01/19 06:46 Dose: 5,000 unit Hydrocortisone (Anusol 2.5% Hc Cream -) 1 applic RC BID [facility] Last Admin: 12/31/18 22:14 Dose: 1 applic Norepinephrine Bitartrate 8, (000 mcg/ Dextrose) 500 mls @ 18.75 mls/hr IV TITR [facility]; Protocol Last Titration: 01/01/19 08:54 Dose: 0 mcg/min, 0 mls/hr Ceftriaxone Sodium 2 gm/ (Dextrose) 100 mls @ 200 mls/hr IVPB DAILY [facility]; Protocol Last Admin: 01/01/19 10:13 Dose: 200 mls/hr Sodium Chloride (1/2 Normal Saline) 1,000 mls @ 83 mls/hr IV ASDIR [facility] Insulin Aspart (Novolog Vial Sliding Scale -) 1 vial SQ ACHS [facility]; Protocol Last Admin: 01/01/19 07:00 Dose: Not Given Lamotrigine (Lamictal -) 100 mg PO BID [facility] Last Admin: 12/31/18 22:56 Dose: 100 mg Mupirocin (Bactroban Ointment (For Decolonization) -) 1 applic NS BID [facility] Stop: 01/03/19 09:59 Last Admin: 12/31/18 22:15 Dose: 1 applic Oxcarbazepine (Trileptal -) 600 mg PO DAILY [facility] Last Admin: 01/01/19 10:12 Dose: 600 mg Oxcarbazepine (Trileptal -) 300 mg PO HS [facility] Last Admin: 12/31/18 22:20 Dose: 300 mg Pantoprazole Sodium (Protonix -) 40 mg PO ACBK [facility] Last Admin: 01/01/19 06:46 Dose: 40 mg Sevelamer Carbonate (Renvela -) 800 mg PO TID [facility] Last Admin: 01/01/19 06:46 Dose: 800 mg Solifenacin (Vesicare -) 5 mg PO DAILY [facility] Last Admin: 12/31/18 09:50 Dose: 5 mg - Objective Vital Signs: Vital Signs Temperature 98.3 F 01/01/19 02:00 Pulse Rate 79 01/01/19 06:00 Respiratory Rate 20 01/01/19 06:00 Blood Pressure 129/62 01/01/19 08:54 O2 Sat by Pulse Oximetry (%) 98 12/31/18 20:17 Constitutional: Yes: Mild Distress Cardiovascular: Yes: Regular Rate and Rhythm Respiratory: Yes: Diminished, On Nasal O2 Gastrointestinal: Yes: Soft, Abdomen, Obese Genitourinary: Yes: Incontinence Musculoskeletal: Yes: Muscle Weakness Edema: Yes Integumentary: Yes: Rash Wound/Incision: Yes: Dressing Dry and Intact Neurological: Yes: Pre-Existing Deficit, Weakness Labs: CBC, BMP 01/01/19 06:10 01/01/19 06:10 INR, PTT INR 1.28 (0.83-1.09) H 12/28/18 20:50 Problem List - Problems (2) Toxic metabolic encephalopathy Code(s): G92 - TOXIC ENCEPHALOPATHY (3) KIRAN (acute kidney injury) Code(s): N17.9 - ACUTE KIDNEY FAILURE, UNSPECIFIED (4) Hypotension Code(s): I95.9 - HYPOTENSION, UNSPECIFIED Qualifiers: Hypotension type: unspecified hypotension type Qualified Code(s): I95.9 - Hypotension, unspecified (5) Sepsis Code(s): A41.9 - SEPSIS, UNSPECIFIED ORGANISM Qualifiers: Sepsis type: sepsis due to unspecified organism Sepsis acute organ dysfunction status: with acute organ dysfunction Severe sepsis acute organ dysfunction type: acute renal failure Acute renal failure type: unspecified Severe sepsis shock status: unspecified Qualified Code(s): A41.9 - Sepsis, unspecified organism; R65.20 - Severe sepsis without septic shock; N17.9 - Acute kidney failure, unspecified (6) UTI (urinary tract infection) Code(s): N39.0 - URINARY TRACT INFECTION, SITE NOT SPECIFIED Qualifiers: Urinary tract infection type: site unspecified Hematuria presence: without hematuria Qualified Code(s): N39.0 - Urinary tract infection, site not specified Assessment/Plan CHANGING ABX TO CEFTRIAXONE THEN CHANGE TO PO CEFTIN IN 2 DAYS TRANSFER MED SURG DERM CONSULT FOR PSORIATIC RASH INJECTOFER IRON X 1 DOSE IRON DEF ANEMIA STOOL OCCULT NEG DVT PROPHYLAXIS TRANSFUSE PRBC IF H/H LOWER TOMORROW
[2019-01-01] MEDS: SODIUM CHLORIDE 0.45% 1,000 ML IV SCH ×2 (10:37→22:31)
--- NOTE | 2019-01-01 11:42 | PN ---
Physical Exam: SUBJECTIVE: Patient seen and examined at bedside. No overnight events. No complaints. Has been on levo of 1. OBJECTIVE: Vital Signs Period Temp Pulse Resp BP Sys/Lombardi Pulse Ox Last 24 Hr 98.0 F-98.5 F 68-105 17-20 83-140/52-70 98-98 GENERAL: A&Ox2, no distress EYES: asymmetric pupils LUNGS: CTA NECK: R IJ in place HEART: RRR, no murmurs ABDOMEN: soft, nontender NEUROLOGICAL: CN II-XII intact SKIN: sporadic excoriations, dermatitis rash on face, ear, upper and lower extremities noted. Laboratory Results - last 24 hr 12/31/18 12/31/18 12/31/18 11:44 16:54 23:45 WBC RBC Hgb Hct MCV MCH MCHC RDW Plt Count MPV Sodium Potassium Chloride Carbon Dioxide Anion Gap BUN Creatinine Est GFR (CKD-EPI)AfAm Est GFR (CKD-EPI)NonAf POC Glucometer 152 156 178 Random Glucose Calcium Phosphorus Magnesium TSH 01/01/19 01/01/19 01/01/19 06:10 06:10 06:18 WBC 5.4 RBC 2.61 L Hgb 7.8 L Hct 23.6 L MCV 90.4 MCH 29.8 MCHC 33.0 RDW 13.5 Plt Count 142 MPV 9.6 Sodium 146 H Potassium 4.2 Chloride 117 H Carbon Dioxide 23 Anion Gap 5 L BUN 30.8 H Creatinine 1.7 H Est GFR (CKD-EPI)AfAm 39.22 Est GFR (CKD-EPI)NonAf 33.84 POC Glucometer 149 Random Glucose 151 H Calcium 9.0 Phosphorus 3.2 Magnesium 1.8 TSH 1.75 01/01/19 11:30 WBC RBC Hgb Hct MCV MCH MCHC RDW Plt Count MPV Sodium Potassium Chloride Carbon Dioxide Anion Gap BUN Creatinine Est GFR (CKD-EPI)AfAm Est GFR (CKD-EPI)NonAf POC Glucometer 134 Random Glucose Calcium Phosphorus Magnesium TSH Active Medications Generic Name Dose Route Start Last Admin Trade Name Freq PRN Reason Stop Dose Admin Acetaminophen 1,000 mg 12/29/18 16:52 12/31/18 02:46 Ofirmev Injection - IVPB 1,000 mg Q6H PRN Administration PAIN LEVEL 6-10 Brimonidine Tartrate 1 drop 12/31/18 15:09 01/01/19 10:24 Alphagan 0.15% - OS 1 drop DAILY DEBRA Administration Chlorhexidine Gluconate 1 applic 12/29/18 22:00 12/31/18 22:16 Hibiclens For Decolonization - TP 1 applic HS DEBRA Administration Clonazepam 1 mg 12/29/18 10:00 01/01/19 10:13 Klonopin - PO 1 mg BID DEBRA Administration Clotrimazole 1 applic 12/29/18 10:00 01/01/19 10:27 Lotrisone Cream (Small Tube) TP 1 applic BID DEBRA Administration Clotrimazole 1 applic 12/31/18 22:00 12/31/18 22:57 Gyne-Lotrimin - VG 1 applic HS DEBRA Administration Dorzolamide HCl 1 drop 12/29/18 12:24 01/01/19 10:26 Trusopt 2% OS 1 drop DAILY DEBRA Administration Duloxetine HCl 30 mg 12/29/18 10:00 01/01/19 10:13 Cymbalta - PO 30 mg BID DEBRA Administration Folic Acid 1 mg 12/29/18 10:00 01/01/19 10:13 Folic Acid - PO 1 mg DAILY DEBRA Administration Heparin Sodium (Porcine) 5,000 unit 12/29/18 06:00 01/01/19 06:46 Heparin - SQ 5,000 unit TID DEBRA Administration Hydrocortisone 1 applic 12/29/18 10:00 12/31/18 22:14 Anusol 2.5% Hc Cream - RC 1 applic BID DEBRA Administration Norepinephrine Bitartrate 8, 500 mls @ 18.75 mls/hr 12/30/18 20:34 01/01/19 08:54 000 mcg/ Dextrose IV 0 mcg/min TITR DEBRA 0 mls/hr Titration Protocol 5 MCG/MIN Ceftriaxone Sodium 2 gm/ 100 mls @ 200 mls/hr 01/01/19 10:00 01/01/19 10:13 Dextrose IVPB 200 mls/hr DAILY DEBRA Administration Protocol Sodium Chloride 1,000 mls @ 83 mls/hr 01/01/19 09:15 01/01/19 10:37 1/2 Normal Saline IV 83 mls/hr ASDIR DEBRA Administration Insulin Aspart 1 vial 12/30/18 16:30 01/01/19 11:36 Novolog Vial Sliding Scale - SQ Not Given ACHS DEBRA Protocol Lamotrigine 100 mg 12/30/18 22:00 01/01/19 10:22 Lamictal - PO 100 mg BID DEBRA Administration Mupirocin 1 applic 12/29/18 10:00 01/01/19 10:28 Bactroban Ointment (For Decolonization) - NS 01/03/19 09:59 1 applic BID DEBRA Administration Oxcarbazepine 600 mg 12/29/18 10:00 01/01/19 10:12 Trileptal - PO 600 mg DAILY DEBRA Administration Oxcarbazepine 300 mg 12/31/18 22:00 12/31/18 22:20 Trileptal - PO 300 mg HS DEBRA Administration Pantoprazole Sodium 40 mg 12/29/18 07:00 01/01/19 06:46 Protonix - PO 40 mg ACBK DEBRA Administration Sevelamer Carbonate 800 mg 01/01/19 11:39 Renvela - PO TIDCM DEBRA Solifenacin 5 mg 12/29/18 10:00 01/01/19 10:23 Vesicare - PO 5 mg DAILY DEBRA Administration ASSESSMENT/PLAN: 53 year old female with a past medical history of Turners Syndrome, Schizoaffective disorder, 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 Septic Shock secondary to UTI T2DM CKD Anemia Proptosis NEUROLOGIC -continue home neuropsychiatric medications CARDIOLOGY -on levo 1 overnight, turned off levo this morning -will monitor BP and if stable, will transfer to /s in afternoon - EKG showing sinus rhythm, age indeterminate inferior infarct (q waves), QTc 428 - echo left ventricular size, function is normal, trace mitral, tricuspid, pulmonic valve regurg - DVT study negative RESPIRATORY - satting well on NC, continue to monitor - CXR for continued fevers, no acute infiltrate noted, no evidence of aspiration RENAL - CRE 1.7, improved - renal/bladder U/S showing simple renal cysts, small left kidney relative to R GASTROINTESTINAL - FOBT negative GENITOURINARY - home hippurate - home oxybutynin INFECTIOUS DISEASE -improving -changed meropenem to ceftriaxone today -continue steroid and antifungal cream for rash -will get derm consult to evaluate rash -urine cultures positive for Klebsiella, multiple sensitivities - ID following (Dr. Drake), recommendations appreciated ENDOCRINE - BGM ACHS - ISS PROPHYLAXIS - heparin 5000 units subq tid CODE - full code DISPO - continue to monitor in ICU Visit type - Emergency Visit Emergency Visit: No - New Patient This patient is new to me today: No - Critical Care Critical Care patient: Yes Total Critical Care Time (in minutes): 36 Critical Care Statement: The care of this patient involved high complexity decision making to prevent further life threatening deterioration of the patient 's condition and/or to evaluate & treat vital organ system(s) failure or risk of failure. ATTENDING PHYSICIAN STATEMENT I saw and evaluated the patient. I reviewed the resident's note and discussed the case with the resident. I agree with the resident's findings and plan as documented. SUBJECTIVE: OBJECTIVE: ASSESSMENT AND PLAN:
[2019-01-01] MEDS: HYDROCORTISONE 2.5% TOPICAL CREAM 30 GM TUBE RC SCH ×2 (12:23→22:33)
--- NOTE | 2019-01-01 12:32 | PN ---
Teaching Attending Note Name of Resident: Mata Cavazos ATTENDING PHYSICIAN STATEMENT I saw and evaluated the patient. I reviewed the resident's note and discussed the case with the resident. I agree with the resident's findings and plan as documented. SUBJECTIVE: Pt seen and examined in the ICU. Off pressors this AM. Blood pressures borderline. No fevers recorded. OBJECTIVE: Vital Signs Period Temp Pulse Resp BP Sys/Lombardi Pulse Ox Last 24 Hr 98.0 F-98.5 F 79-105 18-20 96-140/52-70 98-98 Intake & Output 12/29/18 12/30/18 12/31/18 01/01/19 23:59 23:59 23:59 23:59 Intake Total 1763 3715 3416 930 Output Total 1540 3040 2800 Balance 223 675 616 930 Weight 89 kg 92.7 kg 91.5 kg Gen: more awake Heart: RRR Lung: decreased breath sounds at the bases Abd: soft, nontender Ext: + edema CBC, BMP 01/01/19 06:10 01/01/19 06:10 Active Medications Acetaminophen (Ofirmev Injection -) 1,000 mg IVPB Q6H PRN PRN Reason: PAIN LEVEL 6-10 Last Admin: 12/31/18 02:46 Dose: 1,000 mg Brimonidine Tartrate (Alphagan 0.15% -) 1 drop OS DAILY [facility] Last Admin: 01/01/19 10:24 Dose: 1 drop Chlorhexidine Gluconate (Hibiclens For Decolonization -) 1 applic TP HS [facility] Last Admin: 12/31/18 22:16 Dose: 1 applic Clonazepam (Klonopin -) 1 mg PO BID [facility] Last Admin: 01/01/19 10:13 Dose: 1 mg Clotrimazole (Lotrisone Cream (Small Tube)) 1 applic TP BID [facility] Last Admin: 01/01/19 10:27 Dose: 1 applic Clotrimazole (Gyne-Lotrimin -) 1 applic VG HS [facility] Last Admin: 12/31/18 22:57 Dose: 1 applic Dorzolamide HCl (Trusopt 2%) 1 drop OS DAILY [facility] Last Admin: 01/01/19 10:26 Dose: 1 drop Duloxetine HCl (Cymbalta -) 30 mg PO BID [facility] Last Admin: 01/01/19 10:13 Dose: 30 mg Folic Acid (Folic Acid -) 1 mg PO DAILY [facility] Last Admin: 01/01/19 10:13 Dose: 1 mg Heparin Sodium (Porcine) (Heparin -) 5,000 unit SQ TID [facility] Last Admin: 01/01/19 06:46 Dose: 5,000 unit Hydrocortisone (Anusol 2.5% Hc Cream -) 1 applic RC BID [facility] Last Admin: 01/01/19 12:23 Dose: 1 applic Norepinephrine Bitartrate 8, (000 mcg/ Dextrose) 500 mls @ 18.75 mls/hr IV TITR DEBRA; Protocol Last Titration: 01/01/19 08:54 Dose: 0 mcg/min, 0 mls/hr Ceftriaxone Sodium 2 gm/ (Dextrose) 100 mls @ 200 mls/hr IVPB DAILY [facility]; Protocol Last Admin: 01/01/19 10:13 Dose: 200 mls/hr Sodium Chloride (1/2 Normal Saline) 1,000 mls @ 83 mls/hr IV ASDIR [facility] Last Admin: 01/01/19 10:37 Dose: 83 mls/hr Insulin Aspart (Novolog Vial Sliding Scale -) 1 vial SQ ACHS [facility]; Protocol Last Admin: 01/01/19 11:36 Dose: Not Given Lamotrigine (Lamictal -) 100 mg PO BID [facility] Last Admin: 01/01/19 10:22 Dose: 100 mg Mupirocin (Bactroban Ointment (For Decolonization) -) 1 applic NS BID [facility] Stop: 01/03/19 09:59 Last Admin: 01/01/19 10:28 Dose: 1 applic Oxcarbazepine (Trileptal -) 600 mg PO DAILY [facility] Last Admin: 01/01/19 10:12 Dose: 600 mg Oxcarbazepine (Trileptal -) 300 mg PO HS [facility] Last Admin: 12/31/18 22:20 Dose: 300 mg Pantoprazole Sodium (Protonix -) 40 mg PO ACBK [facility] Last Admin: 01/01/19 06:46 Dose: 40 mg Sevelamer Carbonate (Renvela -) 800 mg PO TIDCM [facility] Last Admin: 01/01/19 12:24 Dose: 800 mg Solifenacin (Vesicare -) 5 mg PO DAILY [facility] Last Admin: 01/01/19 10:23 Dose: 5 mg ASSESSMENT AND PLAN: UTI Septic Shock 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
[2019-01-01] MEDS ORDERED: ALBUTEROL SO4 0.083% IH SOL 2.5 MG/3 ML VIAL.NEB. NEB ONE (16:52)
[2019-01-01] MEDS: CLOTRIMAZOLE 1% VAGINAL CREAM WITH APPLICATOR 45 GM TUBE VG SCH (22:35)
[2019-01-01] MEDS: CHLORHEXIDINE GLUCONATE 4% CLEANSER FOR DECOLONIZATION TP SCH (22:35)
[2019-01-02] MEDS: ACETAMINOPHEN 1000 MG/100 ML VIAL (NON FORMULARY) IVPB PRN (05:05)
[2019-01-02] MEDS: HEPARIN NA (PORCINE) 5,000 UNITS/ML 1ML VIAL SQ SCH ×3 (05:14→21:21)
[2019-01-02] MEDS: PANTOPRAZOLE 40 MG TABLET (FP) PO SCH (06:26)
[2019-01-02] MEDS: INSULIN SLIDING SCALE (NOVOLOG) 1 VIAL SQ SCH ×4 (06:30→21:11)
[2019-01-02 06:35] LABS: HEMATOCRIT 22.6 % (32.4-45.2); HEMOGLOBIN 7.3 GM/dL (10.7-15.3); MCH 29.4 pg (25.7-33.7); MCHC 32.1 g/dl (32.0-36.0); MEAN CELL VOLUME 91.6 fl (80-96); MEAN PLT VOLUME 9.4 fl (7.5-11.1); PLATELET COUNT 130 K/MM3 (134-434); RBC 2.47 M/mm3 (3.60-5.2); RDW 13.7 % (11.6-15.6); WHITE BLOOD COUNT 4.9 K/mm3 (4.0-10.0)
[2019-01-02] MEDS ORDERED: SODIUM CHLORIDE 0.45% 1,000 ML IV SCH (07:07)
[2019-01-02 07:35] LABS: BLOOD UREA NITROGEN 29.1 mg/dL (7-18); CALCIUM 8.8 mg/dL (8.5-10.1); CREATININE 1.6 mg/dL (0.55-1.3); MAGNESIUM 1.7 mg/dL (1.8-2.4); PHOSPHOROUS 3.1 mg/dL (2.5-4.9); POTASSIUM 4.5 mmol/L (3.5-5.1)
[2019-01-02] MEDS: SEVELAMER CARBONATE 800 MG TAB (FP) PO SCH ×3 (08:41→17:00)
[2019-01-02] MEDS ORDERED: MAGNESIUM OXIDE 400 MG TABLET (FP) PO ONE (08:46)
[2019-01-02] MEDS ORDERED: PT OWN MED DRAWER 7, Y5N ONE ×2 (09:52→15:29)
[2019-01-02] MEDS ORDERED: DEXTROSE 5%-WATER 100 ML IVPB ONE (09:52)
[2019-01-02] MEDS: CEFTRIAXONE 2 GM in DEXTROSE 5%-WATER 100 ML IVPB SCH (09:56)
[2019-01-02] MEDS: DULoxetine HCL 30 MG CAPSULE.DR PO SCH ×2 (09:57→21:22)
[2019-01-02] MEDS: OXcarbazepine 300 MG TABLET (UD) PO SCH ×2 (09:57→21:22)
[2019-01-02] MEDS: clonazePAM 0.5 MG TABLET PO SCH ×2 (09:57→21:22)
[2019-01-02] MEDS: FOLIC ACID 1 MG TABLET (FP) PO SCH (09:57)
[2019-01-02] MEDS: lamoTRIgine 100 MG TABLET (FP) PO SCH ×2 (09:58→21:22)
[2019-01-02] MEDS: SOLIFENACIN SUCCINATE 5 MG TAB PO SCH (09:58)
[2019-01-02] MEDS: HYDROCORTISONE 2.5% TOPICAL CREAM 30 GM TUBE RC SCH ×2 (09:59→21:12)
[2019-01-02] MEDS: CLOTRIMAZOLE/BETAMET DIPROP 15 GM TUBE TP SCH ×2 (10:00→21:13)
[2019-01-02] MEDS: DORZOLAMIDE 2% HCL OPHTHALMIC SOLUTION 10 ML BOTTLE OS SCH (10:01)
[2019-01-02] MEDS: BRIMONIDINE TARTRATE 0.15% OPHTHALMIC 5 ML BOTTLE OS SCH (10:01)
[2019-01-02] MEDS: MUPIROCIN 2% TOPICAL OINTMENT FOR DECOLONIZATION NS SCH ×2 (10:04→21:10)
--- NOTE | 2019-01-02 11:42 | PN ---
Teaching Attending Note Name of Resident: Mata Escalante ATTENDING PHYSICIAN STATEMENT I saw and evaluated the patient. I reviewed the resident's note and discussed the case with the resident. I agree with the resident's findings and plan as documented. SUBJECTIVE: Pt seen and examined in the ICU. Remains off pressors, borderline hypotension but unknown baseline. Good urine output. OBJECTIVE: Vital Signs Period Temp Pulse Resp BP Sys/Lombardi Pulse Ox Last 24 Hr 98.3 F-100.1 F 70-98 16-24 82-122/50-67 98-98 Intake & Output 12/30/18 12/31/18 01/01/19 01/02/19 23:59 23:59 23:59 23:59 Intake Total 3715 3416 1130 1396 Output Total 3040 2800 1200 500 Balance 675 616 -70 896 Weight 92.7 kg 91.5 kg 81.828 kg Gen: somnolent but arousable Heart: RRR Lung: decreased breath sounds at the bases Abd: soft, nontender Ext: no edema CBC, BMP 01/02/19 05:30 01/02/19 05:30 Active Medications Brimonidine Tartrate (Alphagan 0.15% -) 1 drop OS DAILY [facility] Last Admin: 01/02/19 10:01 Dose: 1 drop Chlorhexidine Gluconate (Hibiclens For Decolonization -) 1 applic TP HS [facility] Last Admin: 01/01/19 22:35 Dose: 1 applic Clonazepam (Klonopin -) 1 mg PO BID [facility] Last Admin: 01/02/19 09:57 Dose: 1 mg Clotrimazole (Lotrisone Cream (Small Tube)) 1 applic TP BID [facility] Last Admin: 01/02/19 10:00 Dose: 1 applic Clotrimazole (Gyne-Lotrimin -) 1 applic VG HS [facility] Last Admin: 01/01/19 22:35 Dose: 1 applic Dorzolamide HCl (Trusopt 2%) 1 drop OS DAILY [facility] Last Admin: 01/02/19 10:01 Dose: 1 drop Duloxetine HCl (Cymbalta -) 30 mg PO BID [facility] Last Admin: 01/02/19 09:57 Dose: 30 mg Folic Acid (Folic Acid -) 1 mg PO DAILY [facility] Last Admin: 01/02/19 09:57 Dose: 1 mg Heparin Sodium (Porcine) (Heparin -) 5,000 unit SQ TID [facility] Last Admin: 01/02/19 05:14 Dose: 5,000 unit Hydrocortisone (Anusol 2.5% Hc Cream -) 1 applic RC BID [facility] Last Admin: 01/02/19 09:59 Dose: 1 applic Norepinephrine Bitartrate 8, (000 mcg/ Dextrose) 500 mls @ 18.75 mls/hr IV TITR [facility]; Protocol Last Titration: 01/01/19 08:54 Dose: 0 mcg/min, 0 mls/hr Ceftriaxone Sodium 2 gm/ (Dextrose) 100 mls @ 200 mls/hr IVPB DAILY [facility]; Protocol Last Admin: 01/02/19 09:56 Dose: 200 mls/hr Insulin Aspart (Novolog Vial Sliding Scale -) 1 vial SQ ACHS [facility]; Protocol Last Admin: 01/02/19 10:52 Dose: Not Given Lamotrigine (Lamictal -) 100 mg PO BID [facility] Last Admin: 01/02/19 09:58 Dose: 100 mg Mupirocin (Bactroban Ointment (For Decolonization) -) 1 applic NS BID [facility] Stop: 01/03/19 09:59 Last Admin: 01/02/19 10:04 Dose: 1 applic Oxcarbazepine (Trileptal -) 600 mg PO DAILY [facility] Last Admin: 01/02/19 09:57 Dose: 600 mg Oxcarbazepine (Trileptal -) 300 mg PO HS [facility] Last Admin: 01/01/19 22:28 Dose: 300 mg Pantoprazole Sodium (Protonix -) 40 mg PO ACBK [facility] Last Admin: 01/02/19 06:26 Dose: 40 mg Sevelamer Carbonate (Renvela -) 800 mg PO TIDCM [facility] Last Admin: 01/02/19 08:41 Dose: 800 mg Solifenacin (Vesicare -) 5 mg PO DAILY [facility] Last Admin: 01/02/19 09:58 Dose: 5 mg ASSESSMENT AND PLAN: UTI Septic Shock Acute on Chronic Renal Failure Aguero's Syndrome Seizure Disorder Schizoaffective Disorder DM - continue antibiotics per ID - IVF to keep CVP 8-12 - monitoring off pressors, maintain MAP >65 - monitor urine output, creatinine - glucose control - PO as tolerated - DVT prophylaxis - can monitor on floor if remains off pressors critical care time spent in reviewing chart, evaluating patient and formulating plan 35 min
--- NOTE | 2019-01-02 12:52 | PN ---
Physical Exam: SUBJECTIVE: Patient seen and examined at the bedside. Was off pressors since yesterday. No fevers overnight. Denied cp, sob, abd pain, n/v, fever, chills, headaches, dizziness, lightheadedness. Patient more somnolent today. OBJECTIVE: Vital Signs Period Temp Pulse Resp BP Sys/Lombardi Pulse Ox Last 24 Hr 98.3 F-100.1 F 70-98 16-24 82-122/50-67 98-98 GENERAL: Awake and alert, Oriented to self and location. Able to follow basic commands and answer simple questions. Somnolent but awakes easily EYES: Asymmetric pupils L>R, propoptosis of the left eye LUNGS: Breath sounds equal, clear to auscultation bilaterally. No wheezes, and no crackles. No accessory muscle use. HEART: Regular rate and rhythm, normal S1 and S2 without murmur, rub or gallop. ABDOMEN: Soft, nontender, not distended, normoactive bowel sounds, no guarding, no rebound, no masses. MUSCULOSKELETAL: Normal range of motion at all joints. No bony deformities or tenderness. EXTREMITIES: 2+ pulses, warm, well-perfused. No peripheral edema. NEUROLOGICAL: Follows commands, CN II-XII intact, normal muscle strength bilaterally, upper and lower extremities. PSYCHIATRIC: Cooperative. SKIN: Warm, dry, normal turgor, sporadic excoriations, dermatitis rash on face, ear, upper and lower extremities noted. Laboratory Results - last 24 hr 01/01/19 01/01/19 01/02/19 17:02 22:38 05:30 WBC 4.9 RBC 2.47 L Hgb 7.3 L Hct 22.6 L MCV 91.6 MCH 29.4 MCHC 32.1 RDW 13.7 Plt Count 130 L MPV 9.4 Sodium Potassium Chloride Carbon Dioxide Anion Gap BUN Creatinine Est GFR (CKD-EPI)AfAm Est GFR (CKD-EPI)NonAf POC Glucometer 131 105 Random Glucose Calcium Phosphorus Magnesium 01/02/19 01/02/19 01/02/19 05:30 06:29 10:49 WBC RBC Hgb Hct MCV MCH MCHC RDW Plt Count MPV Sodium 143 Potassium 4.5 Chloride 115 H Carbon Dioxide 23 Anion Gap 5 L BUN 29.1 H Creatinine 1.6 H Est GFR (CKD-EPI)AfAm 42.20 Est GFR (CKD-EPI)NonAf 36.41 POC Glucometer 97 130 Random Glucose 102 Calcium 8.8 Phosphorus 3.1 Magnesium 1.7 L Active Medications Generic Name Dose Route Start Last Admin Trade Name Adrianna PRN Reason Stop Dose Admin Brimonidine Tartrate 1 drop 12/31/18 15:09 01/02/19 10:01 Alphagan 0.15% - OS 1 drop DAILY [facility] Administration Chlorhexidine Gluconate 1 applic 12/29/18 22:00 01/01/19 22:35 Hibiclens For Decolonization - TP 1 applic HS [facility] Administration Clonazepam 1 mg 12/29/18 10:00 01/02/19 09:57 Klonopin - PO 1 mg BID [facility] Administration Clotrimazole 1 applic 12/29/18 10:00 01/02/19 10:00 Lotrisone Cream (Small Tube) TP 1 applic BID [facility] Administration Clotrimazole 1 applic 12/31/18 22:00 01/01/19 22:35 Gyne-Lotrimin - VG 1 applic HS [facility]BRA Administration Dorzolamide HCl 1 drop 12/29/18 12:24 01/02/19 10:01 Trusopt 2% OS 1 drop DAILY [facility] Administration Duloxetine HCl 30 mg 12/29/18 10:00 01/02/19 09:57 Cymbalta - PO 30 mg BID [facility] Administration Folic Acid 1 mg 12/29/18 10:00 01/02/19 09:57 Folic Acid - PO 1 mg DAILY [facility] Administration Heparin Sodium (Porcine) 5,000 unit 12/29/18 06:00 01/02/19 05:14 Heparin - SQ 5,000 unit TID [facility] Administration Hydrocortisone 1 applic 12/29/18 10:00 01/02/19 09:59 Anusol 2.5% Hc Cream - RC 1 applic BID [facility] Administration Norepinephrine Bitartrate 8, 500 mls @ 18.75 mls/hr 12/30/18 20:34 01/01/19 08:54 000 mcg/ Dextrose IV 0 mcg/min TITR DEBRA 0 mls/hr Titration Protocol 5 MCG/MIN Ceftriaxone Sodium 2 gm/ 100 mls @ 200 mls/hr 01/01/19 10:00 01/02/19 09:56 Dextrose IVPB 200 mls/hr DAILY [facility] Administration Protocol Insulin Aspart 1 vial 12/30/18 16:30 01/02/19 10:52 Novolog Vial Sliding Scale - SQ Not Given ACHS [facility] Protocol Lamotrigine 100 mg 12/30/18 22:00 01/02/19 09:58 Lamictal - PO 100 mg BID [facility] Administration Mupirocin 1 applic 12/29/18 10:00 01/02/19 10:04 Bactroban Ointment (For Decolonization) - NS 01/03/19 09:59 1 applic BID [facility] Administration Oxcarbazepine 600 mg 12/29/18 10:00 01/02/19 09:57 Trileptal - PO 600 mg DAILY [facility] Administration Oxcarbazepine 300 mg 12/31/18 22:00 01/01/19 22:28 Trileptal - PO 300 mg HS [facility] Administration Pantoprazole Sodium 40 mg 12/29/18 07:00 01/02/19 06:26 Protonix - PO 40 mg ACBK [facility] Administration Sevelamer Carbonate 800 mg 01/01/19 11:39 01/02/19 11:43 Renvela - PO 800 mg TIDCM [facility] Administration Solifenacin 5 mg 12/29/18 10:00 01/02/19 09:58 Vesicare - PO 5 mg DAILY [facility] Administration ASSESSMENT/PLAN: Noreen Copeland is a 53 year old female with a past medical history of Turners Syndrome, Schizoaffective disorder, 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 Septic Shock secondary to UTI T2DM CKD Anemia Proptosis NEUROLOGIC - awake and alert x2 - continue home seizure medications lamotrigine and oxcarbamazepine CARDIOLOGY - septic shock, resolved - troponin 0.06, likely demand - EKG showing sinus rhythm, age indeterminate inferior infarct (q waves), QTc 428 - echo ordered showing left ventricular size, function is normal, trace mitral, tricuspid, pulmonic valve regurg - DVT study negative RESPIRATORY - satting well on NC, continue to monitor - CXR for continued fevers, no acute infiltrate noted, no evidence of aspiration - ABG within normal limits, no evidence of hypercapneia - repeat CXR clear RENAL - CRE 1.6, baseline 1.19 as per [facility], KIRAN, likely in setting of sepsis - NS 100cc/hr - renal/bladder U/S showing simple renal cysts, small left kidney relative to R GASTROINTESTINAL - FOBT negative - protonix 40mg daily GENITOURINARY - home hippurate - home oxybutynin INFECTIOUS DISEASE - allergic to PCN and azithromycin - continue ceftriaxone for UTI - continue steroid and antifungal cream for rash - will get derm consult to evaluate rash - Blood cultures negative - urine cultures positive for Klebsiella, multiple sensitivities - ID following (Dr. Drake), recommendations appreciated ENDOCRINE - BGM ACHS - ISS HEMATOLOGY - anemia, Hgb 7.3 today, unclear of baseline - FOBT negative - iron studies suggesting anemia of chronic disease, reticulocyte count elevated MUSCULOSKELETAL - CT orbits showing borderline proptosis of L eye, curvilinear calcification along left lacrimal gland - restart home eye drops> trusopt and alphagan to left eye - hydrocortisone cream to nose and bilateral ears - As per last admission at [facility], golimumab for rheumatoid arthritis once monthly F/E/N - no standing fluids, fluids boluses as necessary - continue to monitor electrolytes and replete as necessary - diabetic/ Na controlled diet LINES - R IJ inserted 12/29, remove line once peripherals placed PROPHYLAXIS - heparin 5000 units subq tid CODE - full code DISPO - continue to monitor in ICU CASE DISCUSSED WITH DR INDU SMART DO - PGY-1 Visit type - Emergency Visit Emergency Visit: No - New Patient This patient is new to me today: No - Critical Care Critical Care patient: Yes Total Critical Care Time (in minutes): 37 Critical Care Statement: The care of this patient involved high complexity decision making to prevent further life threatening deterioration of the patient 's condition and/or to evaluate & treat vital organ system(s) failure or risk of failure.
[2019-01-02] MEDS ORDERED: MAGNESIUM SULF 50% (8.12 MEQ/2 ML-1 GM VIAL) IVPB ONE (12:56)
[2019-01-02] MEDS ORDERED: IRON SUCROSE INJECTION 300 MG in SODIUM CHLORIDE 235 ML IVPB ONE (12:59)
--- NOTE | 2019-01-02 13:00 | PN ---
Progress Note, Physician Chief Complaint: on pressors in icu awake - Current Medication List Current Medications: Active Medications Brimonidine Tartrate (Alphagan 0.15% -) 1 drop OS DAILY [facility] Last Admin: 01/02/19 10:01 Dose: 1 drop Chlorhexidine Gluconate (Hibiclens For Decolonization -) 1 applic TP HS [facility] Last Admin: 01/01/19 22:35 Dose: 1 applic Clonazepam (Klonopin -) 1 mg PO BID [facility] Last Admin: 01/02/19 09:57 Dose: 1 mg Clotrimazole (Lotrisone Cream (Small Tube)) 1 applic TP BID [facility] Last Admin: 01/02/19 10:00 Dose: 1 applic Clotrimazole (Gyne-Lotrimin -) 1 applic VG HS [facility] Last Admin: 01/01/19 22:35 Dose: 1 applic Dorzolamide HCl (Trusopt 2%) 1 drop OS DAILY [facility] Last Admin: 01/02/19 10:01 Dose: 1 drop Duloxetine HCl (Cymbalta -) 30 mg PO BID [facility] Last Admin: 01/02/19 09:57 Dose: 30 mg Folic Acid (Folic Acid -) 1 mg PO DAILY [facility] Last Admin: 01/02/19 09:57 Dose: 1 mg Heparin Sodium (Porcine) (Heparin -) 5,000 unit SQ TID [facility] Last Admin: 01/02/19 05:14 Dose: 5,000 unit Hydrocortisone (Anusol 2.5% Hc Cream -) 1 applic RC BID [facility] Last Admin: 01/02/19 09:59 Dose: 1 applic Norepinephrine Bitartrate 8, (000 mcg/ Dextrose) 500 mls @ 18.75 mls/hr IV TITR [facility]; Protocol Last Titration: 01/01/19 08:54 Dose: 0 mcg/min, 0 mls/hr Ceftriaxone Sodium 2 gm/ (Dextrose) 100 mls @ 200 mls/hr IVPB DAILY [facility]; Protocol Last Admin: 01/02/19 09:56 Dose: 200 mls/hr Insulin Aspart (Novolog Vial Sliding Scale -) 1 vial SQ ACHS [facility]; Protocol Last Admin: 01/02/19 10:52 Dose: Not Given Lamotrigine (Lamictal -) 100 mg PO BID [facility] Last Admin: 01/02/19 09:58 Dose: 100 mg Mupirocin (Bactroban Ointment (For Decolonization) -) 1 applic NS BID [facility] Stop: 01/03/19 09:59 Last Admin: 01/02/19 10:04 Dose: 1 applic Oxcarbazepine (Trileptal -) 600 mg PO DAILY [facility] Last Admin: 01/02/19 09:57 Dose: 600 mg Oxcarbazepine (Trileptal -) 300 mg PO HS [facility] Last Admin: 01/01/19 22:28 Dose: 300 mg Pantoprazole Sodium (Protonix -) 40 mg PO ACBK [facility] Last Admin: 01/02/19 06:26 Dose: 40 mg Sevelamer Carbonate (Renvela -) 800 mg PO TIDCM [facility] Last Admin: 01/02/19 11:43 Dose: 800 mg Solifenacin (Vesicare -) 5 mg PO DAILY [facility] Last Admin: 01/02/19 09:58 Dose: 5 mg - Objective Vital Signs: Vital Signs Temperature 98.3 F 01/02/19 11:22 Pulse Rate 73 01/02/19 11:22 Respiratory Rate 18 01/02/19 11:22 Blood Pressure 86/67 L 01/02/19 11:22 O2 Sat by Pulse Oximetry (%) 98 01/02/19 07:42 Constitutional: Yes: Calm Cardiovascular: Yes: Regular Rate and Rhythm, S1, S2 Respiratory: Yes: Diminished Gastrointestinal: Yes: Normal Bowel Sounds, Soft, Other (colostomy) Edema: Yes Integumentary: Yes: Rash Labs: CBC, BMP 01/02/19 05:30 01/02/19 05:30 INR, PTT INR 1.28 (0.83-1.09) H 12/28/18 20:50 Problem List - Problems (1) UTI (urinary tract infection) Assessment/Plan: Microbiology 12/28/18 21:15 Urine - Urine - Catheterized Urine Culture - Preliminary Lactose Fermenting Neg Bacilli meropenem stopped now on rocephin Microbiology 12/28/18 21:15 Urine - Urine - Catheterized Urine Culture - Final Klebsiella Pneumoniae Code(s): N39.0 - URINARY TRACT INFECTION, SITE NOT SPECIFIED Qualifiers: Urinary tract infection type: site unspecified Hematuria presence: without hematuria Qualified Code(s): N39.0 - Urinary tract infection, site not specified (2) KIRAN (acute kidney injury) Assessment/Plan: creatinine is improving ivf Code(s): N17.9 - ACUTE KIDNEY FAILURE, UNSPECIFIED (3) Hypotension Assessment/Plan: on levophed ivf wbc coutn is improved Code(s): I95.9 - HYPOTENSION, UNSPECIFIED Qualifiers: Hypotension type: unspecified hypotension type Qualified Code(s): I95.9 - Hypotension, unspecified (4) Rash Assessment/Plan: derm eval topical steroids Code(s): R21 - RASH AND OTHER NONSPECIFIC SKIN ERUPTION (5) Anemia Assessment/Plan: iron panel noted venofer second dose today Code(s): D64.9 - ANEMIA, UNSPECIFIED Qualifiers: Anemia type: iron deficiency (6) Hypomagnesemia Assessment/Plan: iv magnesium Code(s): E83.42 - HYPOMAGNESEMIA
[2019-01-02 13:58] LABS: ARTERIAL BLD GAS O2 SATURATION 96.7 % (95-98); ARTERIAL BLOOD GAS BASE EXCESS -4.8 meq/l (-2-2); ARTERIAL BLOOD GAS PCO2 40.6 mmHg (35-45); ARTERIAL BLOOD GAS PO2 86.5 mmHg (80-100); ARTERIAL BLOOD GAS pH 7.32 (7.35-7.45)
[2019-01-02 14:01] LABS: ALLENS TEST POSITIVE
[2019-01-02 14:44] VITALS: BMI 37.6
[2019-01-02] MEDS: CLOTRIMAZOLE 1% VAGINAL CREAM WITH APPLICATOR 45 GM TUBE VG SCH (21:11)
[2019-01-02] MEDS: CHLORHEXIDINE GLUCONATE 4% CLEANSER FOR DECOLONIZATION TP SCH (21:14)
[2019-01-03] MEDS: HEPARIN NA (PORCINE) 5,000 UNITS/ML 1ML VIAL SQ SCH ×3 (06:05→21:04)
[2019-01-03] MEDS: PANTOPRAZOLE 40 MG TABLET (FP) PO SCH (06:06)
[2019-01-03] MEDS: INSULIN SLIDING SCALE (NOVOLOG) 1 VIAL SQ SCH ×4 (06:06→21:23)
[2019-01-03 06:32] LABS: BASO % 0.5 % (0-2.0); HEMATOCRIT 23.6 % (32.4-45.2); HEMOGLOBIN 7.7 GM/dL (10.7-15.3); LYMPH % 18.7 % (8-40); MCH 29.6 pg (25.7-33.7); MCHC 32.8 g/dl (32.0-36.0); MEAN CELL VOLUME 90.3 fl (80-96); MONO % 10.1 % (3.8-10.2); NEUT % 68.7 % (42.8-82.8); PLATELET COUNT 148 K/MM3 (134-434); RBC 2.61 M/mm3 (3.60-5.2); RDW 13.4 % (11.6-15.6); WHITE BLOOD COUNT 5.3 K/mm3 (4.0-10.0)
[2019-01-03] MEDS: SEVELAMER CARBONATE 800 MG TAB (FP) PO SCH ×3 (07:29→17:02)
[2019-01-03 07:45] LABS: ALBUMIN 1.9 g/dl (3.4-5.0); BILIRUBIN,TOTAL 0.2 mg/dL (0.2-1); BLOOD UREA NITROGEN 33.6 mg/dL (7-18); CALCIUM 9.1 mg/dL (8.5-10.1); CREATININE 1.6 mg/dL (0.55-1.3); MAGNESIUM 1.8 mg/dL (1.8-2.4); PHOSPHOROUS 4.3 mg/dL (2.5-4.9); POTASSIUM 4.2 mmol/L (3.5-5.1); TOT PROT 5.4 g/dl (6.4-8.2)
[2019-01-03] MEDS ORDERED: MAGNESIUM OXIDE 400 MG TABLET (FP) PO ONE (08:17)
[2019-01-03] MEDS ORDERED: DEXTROSE 5%-WATER 100 ML IVPB ONE ×2 (09:02→09:21)
[2019-01-03] MEDS: DULoxetine HCL 30 MG CAPSULE.DR PO SCH ×2 (09:08→21:05)
[2019-01-03] MEDS: OXcarbazepine 300 MG TABLET (UD) PO SCH ×2 (09:08→21:05)
[2019-01-03] MEDS: clonazePAM 0.5 MG TABLET PO SCH ×2 (09:08→21:04)
[2019-01-03] MEDS: FOLIC ACID 1 MG TABLET (FP) PO SCH (09:09)
[2019-01-03] MEDS: BRIMONIDINE TARTRATE 0.15% OPHTHALMIC 5 ML BOTTLE OS SCH (09:11)
[2019-01-03] MEDS: HYDROCORTISONE 2.5% TOPICAL CREAM 30 GM TUBE RC SCH ×2 (09:12→21:19)
[2019-01-03] MEDS: CLOTRIMAZOLE/BETAMET DIPROP 15 GM TUBE TP SCH ×2 (09:12→21:19)
[2019-01-03] MEDS: CEFTRIAXONE 2 GM in DEXTROSE 5%-WATER 100 ML IVPB SCH (09:13)
[2019-01-03] MEDS: DORZOLAMIDE 2% HCL OPHTHALMIC SOLUTION 10 ML BOTTLE OS SCH (09:14)
[2019-01-03] MEDS ORDERED: PT OWN MED DRAWER 7, Y5N ONE ×2 (09:22→11:11)
[2019-01-03] MEDS: lamoTRIgine 100 MG TABLET (FP) PO SCH ×2 (09:32→21:04)
[2019-01-03 09:55] LABS: ANISOCYTOSIS 1+; MACROCYTOSIS 0; OVALOCYTE 1+; PLATELET ESTIMATE DECREASED; TEAR DROP CELLS 1+
--- NOTE | 2019-01-03 10:56 | PN ---
Progress Note (short form) - Note Progress Note: remains off pressors Vital Signs Period Temp Pulse Resp BP Sys/Lombardi Pulse Ox Last 24 Hr 98.0 F-99.6 F 66-80 17-29 86-108/48-67 94-98 cor-rrr lungs decreased bs at bases abd soft,nt +ostomy ext no edema skin unchanged, improved? CBC, BMP 01/03/19 05:25 01/03/19 05:25 Microbiology 12/28/18 20:15 Blood - Peripheral Venous Blood Culture - Final NO GROWTH AFTER 5 DAYS INCUBATION 12/28/18 20:50 Blood - Peripheral Venous Blood Culture - Final NO GROWTH AFTER 5 DAYS INCUBATION 12/28/18 21:15 Urine - Urine - Catheterized Urine Culture - Final Klebsiella Pneumoniae cxray-congestion a/p off pressors ?kleb UTI- no need to isolate blind left eye colostomy seizure disorder probable psoriasis kiran pen allergy- reports rash as a child dermatology evaluation- continue steroid cream/antifungal cream for now day #6 antibiotics- switch to po ceftin 500 bid to complete 10 days ?d/c hinds Problem List - Problems (1) Sepsis Code(s): A41.9 - SEPSIS, UNSPECIFIED ORGANISM Qualifiers: Sepsis type: sepsis due to unspecified organism Sepsis acute organ dysfunction status: with acute organ dysfunction Severe sepsis acute organ dysfunction type: acute renal failure Acute renal failure type: unspecified Severe sepsis shock status: unspecified Qualified Code(s): A41.9 - Sepsis, unspecified organism; R65.20 - Severe sepsis without septic shock; N17.9 - Acute kidney failure, unspecified (2) UTI (urinary tract infection) Code(s): N39.0 - URINARY TRACT INFECTION, SITE NOT SPECIFIED Qualifiers: Urinary tract infection type: site unspecified Hematuria presence: without hematuria Qualified Code(s): N39.0 - Urinary tract infection, site not specified (3) Penicillin allergy Code(s): Z88.0 - ALLERGY STATUS TO PENICILLIN (4) Rash Code(s): R21 - RASH AND OTHER NONSPECIFIC SKIN ERUPTION (5) KIRAN (acute kidney injury) Code(s): N17.9 - ACUTE KIDNEY FAILURE, UNSPECIFIED
[2019-01-03] MEDS: SOLIFENACIN SUCCINATE 5 MG TAB PO SCH (11:29)
[2019-01-03] MEDS: FLUTICASONE PROP 0.05% 16 GM NASAL SPRAY NS SCH ×2 (11:34→21:19)
--- NOTE | 2019-01-03 11:39 | PN ---
Teaching Attending Note Name of Resident: Mata Escalante ATTENDING PHYSICIAN STATEMENT I saw and evaluated the patient. I reviewed the resident's note and discussed the case with the resident. I agree with the resident's findings and plan as documented. SUBJECTIVE: Pt seen and examined in the ICU. Remains off pressors. More alert, awake today. ID input appreciated. OBJECTIVE: Vital Signs Period Temp Pulse Resp BP Sys/Lombardi Pulse Ox Last 24 Hr 98.0 F-99.6 F 66-80 17-29 86-108/48-67 94-98 Intake & Output 12/31/18 01/01/19 01/02/19 01/03/19 23:59 23:59 23:59 23:59 Intake Total 3416 1130 3066 50 Output Total 2800 1200 2600 1200 Balance 616 -70 466 -1150 Weight 91.5 kg 81.828 kg 90.435 kg Gen: NAD at rest Heart: RRR Lung: decreased breath sounds at the bases Abd: soft, nontender Ext: no edema CBC, BMP 01/03/19 05:25 01/03/19 05:25 Active Medications Brimonidine Tartrate (Alphagan 0.15% -) 1 drop OS DAILY [facility] Last Admin: 01/03/19 09:11 Dose: 1 drop Cefuroxime Axetil (Ceftin -) 500 mg PO BID [facility] Stop: 01/07/19 22:00 Chlorhexidine Gluconate (Hibiclens For Decolonization -) 1 applic TP HS [facility] Last Admin: 01/02/19 21:14 Dose: 1 applic Clonazepam (Klonopin -) 1 mg PO BID [facility] Last Admin: 01/03/19 09:08 Dose: 1 mg Clotrimazole (Lotrisone Cream (Small Tube)) 1 applic TP BID [facility] Last Admin: 01/03/19 09:12 Dose: 1 applic Clotrimazole (Gyne-Lotrimin -) 1 applic VG HS [facility] Last Admin: 01/02/19 21:11 Dose: 1 applic Dorzolamide HCl (Trusopt 2%) 1 drop OS DAILY [facility] Last Admin: 01/03/19 09:14 Dose: 1 drop Duloxetine HCl (Cymbalta -) 30 mg PO BID [facility] Last Admin: 01/03/19 09:08 Dose: 30 mg Fluticasone Propionate (Flonase -) 1 spray NS BID [facility] Last Admin: 01/03/19 11:34 Dose: 2 unit Folic Acid (Folic Acid -) 1 mg PO DAILY [facility] Last Admin: 01/03/19 09:09 Dose: 1 mg Heparin Sodium (Porcine) (Heparin -) 5,000 unit SQ TID [facility] Last Admin: 01/03/19 06:05 Dose: 5,000 unit Hydrocortisone (Anusol 2.5% Hc Cream -) 1 applic RC BID [facility] Last Admin: 01/03/19 09:12 Dose: 1 applic Ceftriaxone Sodium 2 gm/ (Dextrose) 100 mls @ 200 mls/hr IVPB DAILY [facility]; Protocol Stop: 01/03/19 15:00 Last Admin: 01/03/19 09:13 Dose: 200 mls/hr Insulin Aspart (Novolog Vial Sliding Scale -) 1 vial SQ ACHS [facility]; Protocol Last Admin: 01/03/19 11:31 Dose: Not Given Lamotrigine (Lamictal -) 100 mg PO BID [facility] Last Admin: 01/03/19 09:32 Dose: 100 mg Oxcarbazepine (Trileptal -) 600 mg PO DAILY [facility] Last Admin: 01/03/19 09:08 Dose: 600 mg Oxcarbazepine (Trileptal -) 300 mg PO HS [facility] Last Admin: 01/02/19 21:22 Dose: Not Given Pantoprazole Sodium (Protonix -) 40 mg PO ACBK [facility] Last Admin: 01/03/19 06:06 Dose: Not Given Sevelamer Carbonate (Renvela -) 800 mg PO TIDCM [facility] Last Admin: 01/03/19 11:14 Dose: 800 mg Solifenacin (Vesicare -) 5 mg PO DAILY [facility] Last Admin: 01/03/19 11:29 Dose: 5 mg ASSESSMENT AND PLAN: UTI Septic Shock 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
--- NOTE | 2019-01-03 11:46 | PN ---
Progress Note, Physician Chief Complaint: patient seen in icu off pressors awake alert nauseaous today - Current Medication List Current Medications: Active Medications Brimonidine Tartrate (Alphagan 0.15% -) 1 drop OS DAILY [facility] Last Admin: 01/03/19 09:11 Dose: 1 drop Cefuroxime Axetil (Ceftin -) 500 mg PO BID [facility] Stop: 01/07/19 22:00 Chlorhexidine Gluconate (Hibiclens For Decolonization -) 1 applic TP HS [facility] Last Admin: 01/02/19 21:14 Dose: 1 applic Clonazepam (Klonopin -) 1 mg PO BID [facility] Last Admin: 01/03/19 09:08 Dose: 1 mg Clotrimazole (Lotrisone Cream (Small Tube)) 1 applic TP BID [facility] Last Admin: 01/03/19 09:12 Dose: 1 applic Clotrimazole (Gyne-Lotrimin -) 1 applic VG HS [facility] Last Admin: 01/02/19 21:11 Dose: 1 applic Dorzolamide HCl (Trusopt 2%) 1 drop OS DAILY [facility] Last Admin: 01/03/19 09:14 Dose: 1 drop Duloxetine HCl (Cymbalta -) 30 mg PO BID [facility] Last Admin: 01/03/19 09:08 Dose: 30 mg Fluticasone Propionate (Flonase -) 1 spray NS BID [facility] Last Admin: 01/03/19 11:34 Dose: 2 unit Folic Acid (Folic Acid -) 1 mg PO DAILY [facility] Last Admin: 01/03/19 09:09 Dose: 1 mg Heparin Sodium (Porcine) (Heparin -) 5,000 unit SQ TID [facility] Last Admin: 01/03/19 06:05 Dose: 5,000 unit Hydrocortisone (Anusol 2.5% Hc Cream -) 1 applic RC BID [facility] Last Admin: 01/03/19 09:12 Dose: 1 applic Ceftriaxone Sodium 2 gm/ (Dextrose) 100 mls @ 200 mls/hr IVPB DAILY [facility]; Protocol Stop: 01/03/19 15:00 Last Admin: 01/03/19 09:13 Dose: 200 mls/hr Insulin Aspart (Novolog Vial Sliding Scale -) 1 vial SQ ACHS [facility]; Protocol Last Admin: 01/03/19 11:31 Dose: Not Given Lamotrigine (Lamictal -) 100 mg PO BID [facility] Last Admin: 01/03/19 09:32 Dose: 100 mg Oxcarbazepine (Trileptal -) 600 mg PO DAILY [facility] Last Admin: 01/03/19 09:08 Dose: 600 mg Oxcarbazepine (Trileptal -) 300 mg PO HS [facility] Last Admin: 01/02/19 21:22 Dose: Not Given Pantoprazole Sodium (Protonix -) 40 mg PO ACBK [facility] Last Admin: 01/03/19 06:06 Dose: Not Given Sevelamer Carbonate (Renvela -) 800 mg PO TIDCM [facility] Last Admin: 01/03/19 11:14 Dose: 800 mg Solifenacin (Vesicare -) 5 mg PO DAILY [facility] Last Admin: 01/03/19 11:29 Dose: 5 mg - Objective Vital Signs: Vital Signs Temperature 98.5 F 01/03/19 08:34 Pulse Rate 67 01/03/19 11:41 Respiratory Rate 28 H 01/03/19 11:41 Blood Pressure 92/52 L 01/03/19 11:41 O2 Sat by Pulse Oximetry (%) 98 01/03/19 08:34 Constitutional: Yes: Calm Cardiovascular: Yes: Regular Rate and Rhythm, S1, S2 Respiratory: Yes: CTA Bilaterally Gastrointestinal: Yes: Other (slight LLQ tenderness) Edema: No Neurological: Yes: Alert, Oriented Labs: CBC, BMP 01/03/19 05:25 01/03/19 05:25 INR, PTT INR 1.28 (0.83-1.09) H 12/28/18 20:50 Problem List - Problems (1) UTI (urinary tract infection) Assessment/Plan: Microbiology 12/28/18 21:15 Urine - Urine - Catheterized Urine Culture - Preliminary Lactose Fermenting Neg Bacilli meropenem stopped now on rocephin and chagne to ceftin 500mg po bid for 5 days Microbiology 12/28/18 21:15 Urine - Urine - Catheterized Urine Culture - Final Klebsiella Pneumoniae Code(s): N39.0 - URINARY TRACT INFECTION, SITE NOT SPECIFIED Qualifiers: Urinary tract infection type: site unspecified Hematuria presence: without hematuria Qualified Code(s): N39.0 - Urinary tract infection, site not specified (2) KIRAN (acute kidney injury) Assessment/Plan: creatinine is improving ivf to keep CVP 8-12 Code(s): N17.9 - ACUTE KIDNEY FAILURE, UNSPECIFIED (3) Hypotension Assessment/Plan: s/p pressors ivf to keep MAP > 65 and CVP 8-12 Code(s): I95.9 - HYPOTENSION, UNSPECIFIED Qualifiers: Hypotension type: unspecified hypotension type Qualified Code(s): I95.9 - Hypotension, unspecified (4) Rash Assessment/Plan: derm eval topical steroids Code(s): R21 - RASH AND OTHER NONSPECIFIC SKIN ERUPTION (5) Anemia Assessment/Plan: iron panel noted venofer third dose today Code(s): D64.9 - ANEMIA, UNSPECIFIED Qualifiers: Anemia type: iron deficiency (6) Hypomagnesemia Assessment/Plan: improved Code(s): E83.42 - HYPOMAGNESEMIA Assessment/Plan transfer to floor
--- NOTE | 2019-01-03 11:50 | DS ---
Physical Examination Vital Signs: Vital Signs Temperature 98.5 F 01/03/19 08:34 Pulse Rate 67 01/03/19 11:41 Respiratory Rate 28 H 01/03/19 11:41 Blood Pressure 92/52 L 01/03/19 11:41 O2 Sat by Pulse Oximetry (%) 98 01/03/19 08:34 Constitutional: Yes: Calm Cardiovascular: Yes: Regular Rate and Rhythm, S1, S2 Respiratory: Yes: CTA Bilaterally Gastrointestinal: Yes: Other (slight LLq tenderness) Integumentary: Yes: Rash, Other (on nose and ears and right hand) Neurological: Yes: Alert Labs: CBC, BMP 01/03/19 05:25 01/03/19 05:25 Discharge Summary Reason For Visit: URINARY TRACT INFECTION,SEPSIS Current Active Problems KIRAN (acute kidney injury) (Acute) Anemia (Acute) Hypomagnesemia (Acute) Hypotension (Acute) Penicillin allergy (Acute) Rash (Acute) Sepsis (Acute) Toxic metabolic encephalopathy (Acute) Turners syndrome (Acute) UTI (urinary tract infection) (Acute) Hospital Course: PCP: Dr. Deepthi Noguera HISTORY OF PRESENT ILLNESS: 53 y.o. F PMH Turners syndrome, intellectual disability & delay, malignant colon CA s/p colostomy placement, DM type 2, CKD stage IIIb, schizoaffective d/ o presented from [facility] with lethargy. Pt is nonverbal at baseline. According to NF pt was found to be more somnolent with decreased level of activity from baseline. She was given tylenol at the snf for a temp of 100.8F. Nurse denied recent changes to urinary or bowel habits. ER course was notable for: (1) Febrile 101.5F (2) BP 71/43; now s/p 4 boluses NS (3) WBC 12.9 admitted to icu on pressors uti on iv abx now change to po ceftin 500mg po bid for 5 days septic shock now resolvbed anemia got 3 dose of venofer Condition: Guarded - Instructions Diet, Activity, Other Instructions: ceftin 500mg p[o bid for 5 days Referrals: Deepthi Noguera MD [Primary Care Provider] - Disposition: ALF FACILITY - Home Medications Comprehensive Discharge Medication List: Ambulatory Orders Acetaminophen [Tylenol] 650 mg PO QID 12/28/18 Brimonidine Tartrate [Alphagan 0.15% -] 1 drop OS DAILY 12/28/18 Cholecalciferol (Vitamin D3) [Vitamin D3] 1,000 unit PO DAILY 12/28/18 Clonazepam [Klonopin] 1 mg PO BID 12/28/18 Clotrimazole/Betamet Diprop [Lotrisone Cream (Small Tube)] 1 applic TP BID 12/28 Dorzolamide HCl [Trusopt 2%] 1 drop OD DAILY 12/28/18 Duloxetine HCl [Cymbalta -] 30 mg PO BID 12/28/18 Famotidine [Acid Controller] 10 mg PO HS 12/28/18 Folic Acid 1 mg PO DAILY 12/28/18 Golimumab [Simponi] 0.5 ml SQ DAILY 12/28/18 Hydrocortisone 2.5% Topical Cr [Anusol 2.5% Hc Cream -] 1 applic RC BID Hydrocortisone 2.5% Topical Cr [Anusol 2.5% Hc Cream -] 1 applic RC BID Ketoconazole 2% Shampoo [Nizoral 2% Shampoo -] 1 applic TP Q72H 12/28/18 Lamotrigine [Lamotrigine ER] 100 mg PO BID 12/28/18 Methenamine Hippurate [Hiprex [Nf] -] 1 gm PO BID 12/28/18 Olanzapine [Zyprexa] 20 mg PO HS 12/28/18 Omeprazole 20 mg PO BID 12/28/18 Oxcarbazepine 300 mg PO HS 12/28/18 Oxcarbazepine 600 mg PO DAILY 12/28/18 Oxybutynin Chloride [Oxybutynin Chloride ER] 5 mg PO DAILY 12/28/18 Sevelamer Carbonate 800 mg PO TID 12/28/18
[2019-01-03] MEDS ORDERED: IRON SUCROSE INJECTION 300 MG in SODIUM CHLORIDE 235 ML IVPB ONE (13:00)
--- NOTE | 2019-01-03 13:49 | PN ---
Physical Exam: SUBJECTIVE: Patient seen and examined at the bedside. Patient is more alert and awake from previous exam. Asking questions about current medical situation and asking for water/food. Patient currently denies cp, sob, abd pain, n/v, vaginal pain, fever, chills, headaches, dizziness, lightheadedness. Stable for transfer to floor. Monitor for 1 additional day on oral antibiotics and with hinds removed and can discharge tomorrow if condition is stable and is producing adequate urine. Spoken with sister Nanda Daniels and relayed the medical plan of watching the patient an additional day and discharging tomorrow and she is in agreement. She is looking for a new NH to bring Noreen to closer to her house in [facility] and stated that she will be in contact with social work at the hospital and at [facility]. OBJECTIVE: Vital Signs Period Temp Pulse Resp BP Sys/Lombardi Pulse Ox Last 24 Hr 98.0 F-99.6 F 66-80 17-29 86-108/48-67 94-98 GENERAL: Awake and alert, Oriented to self and location. Able to follow basic commands and answer simple questions. EYES: Asymmetric pupils L>R, propoptosis of the left eye LUNGS: Breath sounds equal, clear to auscultation bilaterally. No wheezes, and no crackles. No accessory muscle use. HEART: Regular rate and rhythm, normal S1 and S2 without murmur, rub or gallop. ABDOMEN: Soft, nontender, not distended, normoactive bowel sounds, no guarding, no rebound, no masses. MUSCULOSKELETAL: Normal range of motion at all joints. No bony deformities or tenderness. EXTREMITIES: 2+ pulses, warm, well-perfused. No peripheral edema. NEUROLOGICAL: Follows commands, CN II-XII intact, normal muscle strength bilaterally, upper and lower extremities. PSYCHIATRIC: Cooperative. SKIN: Warm, dry, normal turgor, sporadic excoriations, dermatitis rash on face, ear, upper and lower extremities noted, improved from previous exam. Laboratory Results - last 24 hr 01/01/19 01/02/19 01/02/19 08:30 13:45 16:01 WBC RBC Hgb Hct MCV MCH MCHC RDW Plt Count MPV Absolute Neuts (auto) Neutrophils % Neutrophils % (Manual) Band Neutrophils % Lymphocytes % Lymphocytes % (Manual) Monocytes % Monocytes % (Manual) Eosinophils % Eosinophils % (Manual) Basophils % Basophils % (Manual) Myelocytes % (Man) Promyelocytes % (Man) Blast Cells % (Manual) Nucleated RBC % Metamyelocytes Hypochromia Platelet Estimate Platelet Comment Polychromasia Poikilocytosis Basophilic Stippling Anisocytosis Microcytosis Macrocytosis Tear Drop Cells Ovalocytes Anticoagulation Therapy No Result Required. Puncture Site Right radial ABG pH 7.32 L ABG pCO2 at Pt Temp 40.6 ABG pO2 at Pt Temp 86.5 ABG HCO3 20.3 L ABG O2 Sat (Measured) 96.7 ABG O2 Content 10.4 ABG Base Excess -4.8 L Jace Test Positive O2 Delivery Device No Result Required. Oxygen Flow Rate Yes Vent Mode No Result Required. Vent Rate No Result Required. Mechanical Rate No Result Required. Pressure Support Vent No Result Required. Sodium Potassium Chloride Carbon Dioxide Anion Gap BUN Creatinine Est GFR (CKD-EPI)AfAm Est GFR (CKD-EPI)NonAf POC Glucometer 101 Random Glucose Calcium Phosphorus Magnesium Total Bilirubin AST ALT Alkaline Phosphatase Total Protein Albumin Cortisol AM Sample 15.1 01/02/19 01/03/19 01/03/19 21:06 05:25 05:25 WBC 5.3 RBC 2.61 L Hgb 7.7 L Hct 23.6 L MCV 90.3 MCH 29.6 MCHC 32.8 RDW 13.4 Plt Count 148 MPV 9.0 Absolute Neuts (auto) 3.6 Neutrophils % 68.7 Neutrophils % (Manual) 82.1 Band Neutrophils % 2.1 Lymphocytes % 18.7 D Lymphocytes % (Manual) 6.3 L Monocytes % 10.1 Monocytes % (Manual) 5 Eosinophils % 2.0 D Eosinophils % (Manual) 0.0 Basophils % 0.5 D Basophils % (Manual) 0.0 Myelocytes % (Man) 1 Promyelocytes % (Man) 0 Blast Cells % (Manual) 0 Nucleated RBC % 0 Metamyelocytes 0 Hypochromia 0 Platelet Estimate Decreased Platelet Comment Present Polychromasia 1+ Poikilocytosis 1+ Basophilic Stippling 1+ Anisocytosis 1+ Microcytosis 1+ Macrocytosis 0 Tear Drop Cells 1+ Ovalocytes 1+ Anticoagulation Therapy Puncture Site ABG pH ABG pCO2 at Pt Temp ABG pO2 at Pt Temp ABG HCO3 ABG O2 Sat (Measured) ABG O2 Content ABG Base Excess Jace Test O2 Delivery Device Oxygen Flow Rate Vent Mode Vent Rate Mechanical Rate Pressure Support Vent Sodium 146 H Potassium 4.2 Chloride 116 H Carbon Dioxide 25 Anion Gap 6 L BUN 33.6 H Creatinine 1.6 H Est GFR (CKD-EPI)AfAm 42.20 Est GFR (CKD-EPI)NonAf 36.41 POC Glucometer 99 Random Glucose 84 Calcium 9.1 Phosphorus 4.3 Magnesium 1.8 Total Bilirubin 0.2 AST 19 ALT 16 Alkaline Phosphatase 153 H Total Protein 5.4 L Albumin 1.9 L Cortisol AM Sample 01/03/19 01/03/19 05:41 11:18 WBC RBC Hgb Hct MCV MCH MCHC RDW Plt Count MPV Absolute Neuts (auto) Neutrophils % Neutrophils % (Manual) Band Neutrophils % Lymphocytes % Lymphocytes % (Manual) Monocytes % Monocytes % (Manual) Eosinophils % Eosinophils % (Manual) Basophils % Basophils % (Manual) Myelocytes % (Man) Promyelocytes % (Man) Blast Cells % (Manual) Nucleated RBC % Metamyelocytes Hypochromia Platelet Estimate Platelet Comment Polychromasia Poikilocytosis Basophilic Stippling Anisocytosis Microcytosis Macrocytosis Tear Drop Cells Ovalocytes Anticoagulation Therapy Puncture Site ABG pH ABG pCO2 at Pt Temp ABG pO2 at Pt Temp ABG HCO3 ABG O2 Sat (Measured) ABG O2 Content ABG Base Excess Jace Test O2 Delivery Device Oxygen Flow Rate Vent Mode Vent Rate Mechanical Rate Pressure Support Vent Sodium Potassium Chloride Carbon Dioxide Anion Gap BUN Creatinine Est GFR (CKD-EPI)AfAm Est GFR (CKD-EPI)NonAf POC Glucometer 72 102 Random Glucose Calcium Phosphorus Magnesium Total Bilirubin AST ALT Alkaline Phosphatase Total Protein Albumin Cortisol AM Sample Active Medications Generic Name Dose Route Start Last Admin Trade Name Freq PRN Reason Stop Dose Admin Brimonidine Tartrate 1 drop 12/31/18 15:09 01/03/19 09:11 Alphagan 0.15% - OS 1 drop DAILY DEBRA Administration Cefuroxime Axetil 500 mg 01/04/19 10:00 Ceftin - PO 01/07/19 22:00 BID DEBRA Chlorhexidine Gluconate 1 applic 12/29/18 22:00 01/02/19 21:14 Hibiclens For Decolonization - TP 1 applic HS DEBRA Administration Clonazepam 1 mg 12/29/18 10:00 01/03/19 09:08 Klonopin - PO 1 mg BID DEBRA Administration Clotrimazole 1 applic 12/29/18 10:00 01/03/19 09:12 Lotrisone Cream (Small Tube) TP 1 applic BID DEBRA Administration Clotrimazole 1 applic 12/31/18 22:00 01/02/19 21:11 Gyne-Lotrimin - VG 1 applic HS DEBRA Administration Dorzolamide HCl 1 drop 12/29/18 12:24 01/03/19 09:14 Trusopt 2% OS 1 drop DAILY DEBRA Administration Duloxetine HCl 30 mg 12/29/18 10:00 01/03/19 09:08 Cymbalta - PO 30 mg BID DEBRA Administration Fluticasone Propionate 1 spray 01/03/19 11:30 01/03/19 11:34 Flonase - NS 2 unit BID DEBRA Administration Folic Acid 1 mg 12/29/18 10:00 01/03/19 09:09 Folic Acid - PO 1 mg DAILY DEBRA Administration Heparin Sodium (Porcine) 5,000 unit 12/29/18 06:00 01/03/19 06:05 Heparin - SQ 5,000 unit TID DEBRA Administration Hydrocortisone 1 applic 12/29/18 10:00 01/03/19 09:12 Anusol 2.5% Hc Cream - RC 1 applic BID DEBRA Administration Iron Sucrose 300 mg/ Sodium 250 mls @ 250 mls/hr 01/03/19 13:00 Chloride IVPB 01/03/19 13:59 ONCE ONE Insulin Aspart 1 vial 12/30/18 16:30 01/03/19 11:31 Novolog Vial Sliding Scale - SQ Not Given ACHS [facility] Protocol Lamotrigine 100 mg 12/30/18 22:00 01/03/19 09:32 Lamictal - PO 100 mg BID DEBRA Administration Oxcarbazepine 600 mg 12/29/18 10:00 01/03/19 09:08 Trileptal - PO 600 mg DAILY DEBRA Administration Oxcarbazepine 300 mg 12/31/18 22:00 01/02/19 21:22 Trileptal - PO Not Given HS DEBRA Pantoprazole Sodium 40 mg 12/29/18 07:00 01/03/19 06:06 Protonix - PO Not Given ACBK [facility] Sevelamer Carbonate 800 mg 01/01/19 11:39 08/23/19 11:14 Renvela - PO 800 mg TIDCM DEBRA Administration Solifenacin 5 mg 12/29/18 10:00 01/03/19 11:29 Vesicare - PO 5 mg DAILY DEBRA Administration ASSESSMENT/PLAN: Noreen Copeland is a 53 year old female with a past medical history of Turners Syndrome, Schizoaffective disorder, 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 Septic Shock secondary to UTI T2DM CKD Anemia Proptosis NEUROLOGIC - awake and alert x2 - continue home seizure medications lamotrigine and oxcarbamazepine CARDIOLOGY - septic shock, resolved - troponin 0.06, likely demand - EKG showing sinus rhythm, age indeterminate inferior infarct (q waves), QTc 428 - echo ordered showing left ventricular size, function is normal, trace mitral, tricuspid, pulmonic valve regurg - DVT study negative RESPIRATORY - satting well on NC, continue to monitor - CXR for continued fevers, no acute infiltrate noted, no evidence of aspiration - ABG within normal limits, no evidence of hypercapneia - repeat CXR clear - fluticasone nasal spray for nasal congestion RENAL - CRE 1.6, baseline 1.19 as per NH, KIRAN, likely in setting of sepsis - renal/bladder U/S showing simple renal cysts, small left kidney relative to R - if not producing urine, perform bladder scan and straight cath/hinds cath as needed GASTROINTESTINAL - FOBT negative - protonix 40mg daily GENITOURINARY - home hippurate - home oxybutynin - hinds removed INFECTIOUS DISEASE - allergic to PCN and azithromycin - switch to ceftin 500mg bid, to complete 4 more days of antibiotics - continue steroid and antifungal cream for rash - Blood cultures negative - urine cultures positive for Klebsiella, multiple sensitivities - ID following (Dr. Drake), recommendations appreciated - continue to be afebrile with no elevation of WBC ENDOCRINE - BGM ACHS - ISS HEMATOLOGY - anemia, Hgb 7.7 today, unclear of baseline - FOBT negative - iron studies suggesting anemia of chronic disease, reticulocyte count elevated MUSCULOSKELETAL - CT orbits showing borderline proptosis of L eye, curvilinear calcification along left lacrimal gland - restart home eye drops> trusopt and alphagan to left eye - hydrocortisone cream to nose and bilateral ears - As per last admission at [facility], golimumab for rheumatoid arthritis once monthly F/E/N - no standing fluids, fluids boluses as necessary - continue to monitor electrolytes and replete as necessary - diabetic/ Na controlled diet LINES - R IJ inserted 12/29, will remove today PROPHYLAXIS - heparin 5000 units subq tid CODE - full code DISPO - stable for transfer to Med-surg floor - can be discharged tomorrow if tolerating oral antibiotic and producing adequate urine - spoken with sister Nanda Moreno and is in agreement with plan, will be looking for NH placement closer to [facility] CASE DISCUSSED WITH DR INDU SMART DO - PGY-1 Visit type - Emergency Visit Emergency Visit: No - New Patient This patient is new to me today: No - Critical Care Critical Care patient: No
[2019-01-03] MEDS: CLOTRIMAZOLE 1% VAGINAL CREAM WITH APPLICATOR 45 GM TUBE VG SCH (21:22)
[2019-01-03] MEDS: CHLORHEXIDINE GLUCONATE 4% CLEANSER FOR DECOLONIZATION TP SCH (21:22)
[2019-01-04] MEDS: INSULIN SLIDING SCALE (NOVOLOG) 1 VIAL SQ SCH ×4 (06:23→21:57)
[2019-01-04] MEDS: PANTOPRAZOLE 40 MG TABLET (FP) PO SCH (06:23)
[2019-01-04] MEDS: HEPARIN NA (PORCINE) 5,000 UNITS/ML 1ML VIAL SQ SCH ×3 (06:23→21:47)
[2019-01-04] MEDS: DULoxetine HCL 30 MG CAPSULE.DR PO SCH ×2 (09:51→21:46)
[2019-01-04] MEDS: FOLIC ACID 1 MG TABLET (FP) PO SCH (09:51)
[2019-01-04] MEDS: FERROUS SO4 325 MG TABLET (FP) PO SCH (09:51)
[2019-01-04] MEDS: SEVELAMER CARBONATE 800 MG TAB (FP) PO SCH ×3 (09:51→18:38)
[2019-01-04] MEDS: lamoTRIgine 100 MG TABLET (FP) PO SCH ×2 (09:52→21:46)
[2019-01-04] MEDS: clonazePAM 0.5 MG TABLET PO SCH ×2 (09:52→21:45)
[2019-01-04] MEDS: OXcarbazepine 300 MG TABLET (UD) PO SCH (09:52)
[2019-01-04] MEDS: SOLIFENACIN SUCCINATE 5 MG TAB PO SCH (09:52)
[2019-01-04] MEDS: CEFUROXIME AXETIL 500 MG TABLET PO SCH ×2 (09:53→21:46)
[2019-01-04] MEDS ORDERED: PT OWN MED DRAWER 7, Y5N ONE ×2 (10:47→21:42)
[2019-01-04] MEDS: BRIMONIDINE TARTRATE 0.15% OPHTHALMIC 5 ML BOTTLE OS SCH (11:01)
[2019-01-04] MEDS: HYDROCORTISONE 2.5% TOPICAL CREAM 30 GM TUBE RC SCH ×2 (11:01→23:30)
[2019-01-04] MEDS: DORZOLAMIDE 2% HCL OPHTHALMIC SOLUTION 10 ML BOTTLE OS SCH (11:02)
[2019-01-04] MEDS: FLUTICASONE PROP 0.05% 16 GM NASAL SPRAY NS SCH ×2 (11:02→23:22)
[2019-01-04] MEDS: CLOTRIMAZOLE/BETAMET DIPROP 15 GM TUBE TP SCH ×2 (11:02→21:48)
--- NOTE | 2019-01-04 11:11 | PN ---
Progress Note, Physician Chief Complaint: UTI KIRAN Hypotension History of Present Illness: Previous notes and events reviewed awake and alert NAD complain of nausea denies chest pain or SOB pending discharge to [facility] - Current Medication List Current Medications: Active Medications Brimonidine Tartrate (Alphagan 0.15% -) 1 drop OS DAILY [facility] Last Admin: 01/04/19 11:01 Dose: 1 drop Cefuroxime Axetil (Ceftin -) 500 mg PO BID [facility] Stop: 01/07/19 22:00 Last Admin: 01/04/19 09:53 Dose: 500 mg Chlorhexidine Gluconate (Hibiclens For Decolonization -) 1 applic TP HS [facility] Last Admin: 01/03/19 21:22 Dose: 1 applic Clonazepam (Klonopin -) 1 mg PO BID [facility] Last Admin: 01/04/19 09:52 Dose: 1 mg Clotrimazole (Lotrisone Cream (Small Tube)) 1 applic TP BID [facility] Last Admin: 01/04/19 11:02 Dose: 1 applic Clotrimazole (Gyne-Lotrimin -) 1 applic VG HS [facility] Last Admin: 01/03/19 21:22 Dose: 1 applic Dorzolamide HCl (Trusopt 2%) 1 drop OS DAILY [facility] Last Admin: 01/04/19 11:02 Dose: 1 drop Duloxetine HCl (Cymbalta -) 30 mg PO BID [facility] Last Admin: 01/04/19 09:51 Dose: 30 mg Ferrous Sulfate (Feosol -) 325 mg PO DAILY@0800 [facility] Last Admin: 01/04/19 09:51 Dose: 325 mg Fluticasone Propionate (Flonase -) 1 spray NS BID [facility] Last Admin: 01/04/19 11:02 Dose: 1 spray Folic Acid (Folic Acid -) 1 mg PO DAILY [facility] Last Admin: 01/04/19 09:51 Dose: 1 mg Heparin Sodium (Porcine) (Heparin -) 5,000 unit SQ TID [facility] Last Admin: 01/04/19 06:23 Dose: 5,000 unit Hydrocortisone (Anusol 2.5% Hc Cream -) 1 applic RC BID [facility] Last Admin: 01/04/19 11:01 Dose: 1 applic Insulin Aspart (Novolog Vial Sliding Scale -) 1 vial SQ ACHS [facility]; Protocol Last Admin: 01/04/19 06:23 Dose: Not Given Lamotrigine (Lamictal -) 100 mg PO BID [facility] Last Admin: 01/04/19 09:52 Dose: 100 mg Oxcarbazepine (Trileptal -) 600 mg PO DAILY [facility] Last Admin: 01/04/19 09:52 Dose: 600 mg Oxcarbazepine (Trileptal -) 300 mg PO HS [facility] Last Admin: 01/03/19 21:05 Dose: 300 mg Pantoprazole Sodium (Protonix -) 40 mg PO ACBK [facility] Last Admin: 01/04/19 06:23 Dose: 40 mg Sevelamer Carbonate (Renvela -) 800 mg PO TIDCM [facility] Last Admin: 01/04/19 09:51 Dose: 800 mg Solifenacin (Vesicare -) 5 mg PO DAILY [facility] Last Admin: 01/04/19 09:52 Dose: 5 mg - Objective Vital Signs: Vital Signs Temperature 98.1 F 01/04/19 06:00 Pulse Rate 70 01/04/19 06:00 Respiratory Rate 25 H 01/04/19 06:00 Blood Pressure 91/54 L 01/04/19 06:00 O2 Sat by Pulse Oximetry (%) 98 01/03/19 22:27 Constitutional: Yes: No Distress, Calm Eyes: Yes: Conjunctiva Clear HENT: Yes: Atraumatic Cardiovascular: Yes: Regular Rate and Rhythm Respiratory: Yes: Regular, Diminished, On Nasal O2 Gastrointestinal: Yes: Normal Bowel Sounds, Soft, Abdomen, Obese, Other ( colostomy) Genitourinary: Yes: Incontinence Musculoskeletal: Yes: Muscle Weakness Extremities: Yes: WNL Edema: No Integumentary: Yes: Rash (generalized) Neurological: Yes: Alert, Pre-Existing Deficit Psychiatric: Yes: Alert Labs: CBC, BMP 01/03/19 05:25 01/03/19 05:25 INR, PTT INR 1.28 (0.83-1.09) H 12/28/18 20:50 Microbiology 12/28/18 20:15 Blood - Peripheral Venous Blood Culture - Final NO GROWTH AFTER 5 DAYS INCUBATION 12/28/18 20:50 Blood - Peripheral Venous Blood Culture - Final NO GROWTH AFTER 5 DAYS INCUBATION 12/28/18 21:15 Urine - Urine - Catheterized Urine Culture - Final Klebsiella Pneumoniae Problem List - Problems (1) KIRAN (acute kidney injury) Assessment/Plan: -BUN/Cr 33.6/1.6 -monitor renal function Code(s): N17.9 - ACUTE KIDNEY FAILURE, UNSPECIFIED (2) Anemia Assessment/Plan: -Hg 7.7 -Ferrous Sulfate -monitor Hg and transfuse for Hg <7.0 to avoid fluid overload Code(s): D64.9 - ANEMIA, UNSPECIFIED Qualifiers: Anemia type: iron deficiency (3) Hypotension Assessment/Plan: -monitor BP Code(s): I95.9 - HYPOTENSION, UNSPECIFIED Qualifiers: Hypotension type: unspecified hypotension type Qualified Code(s): I95.9 - Hypotension, unspecified (4) Rash Assessment/Plan: -Clotrimazole Code(s): R21 - RASH AND OTHER NONSPECIFIC SKIN ERUPTION (5) Toxic metabolic encephalopathy Assessment/Plan: -imrpoved Code(s): G92 - TOXIC ENCEPHALOPATHY (6) UTI (urinary tract infection) Assessment/Plan: -no leukocytosis -afebrile -completed antibiotic course -UC positive Code(s): N39.0 - URINARY TRACT INFECTION, SITE NOT SPECIFIED Qualifiers: Urinary tract infection type: site unspecified Hematuria presence: without hematuria Qualified Code(s): N39.0 - Urinary tract infection, site not specified Assessment/Plan see problem list dvt ppx
[2019-01-04] MEDS: CHLORHEXIDINE GLUCONATE 4% CLEANSER FOR DECOLONIZATION TP SCH (22:18)
[2019-01-04] MEDS: CLOTRIMAZOLE 1% VAGINAL CREAM WITH APPLICATOR 45 GM TUBE VG SCH (23:30)
[2019-01-05] MEDS: OXcarbazepine 300 MG TABLET (UD) PO SCH ×2 (00:17→09:34)
[2019-01-05] MEDS: HEPARIN NA (PORCINE) 5,000 UNITS/ML 1ML VIAL SQ SCH (05:30)
[2019-01-05] MEDS: INSULIN SLIDING SCALE (NOVOLOG) 1 VIAL SQ SCH ×2 (06:00→12:06)
[2019-01-05] MEDS: PANTOPRAZOLE 40 MG TABLET (FP) PO SCH (06:30)
[2019-01-05] MEDS: FERROUS SO4 325 MG TABLET (FP) PO SCH (08:20)
[2019-01-05] MEDS: SEVELAMER CARBONATE 800 MG TAB (FP) PO SCH ×2 (08:20→12:10)
[2019-01-05 09:02] LABS: HEMATOCRIT 24.8 % (32.4-45.2); HEMOGLOBIN 8.1 GM/dL (10.7-15.3); MCH 29.6 pg (25.7-33.7); MCHC 32.8 g/dl (32.0-36.0); MEAN CELL VOLUME 90.1 fl (80-96); MEAN PLT VOLUME 8.9 fl (7.5-11.1); PLATELET COUNT 179 K/MM3 (134-434); RBC 2.75 M/mm3 (3.60-5.2); RDW 13.3 % (11.6-15.6); WHITE BLOOD COUNT 5.9 K/mm3 (4.0-10.0)
[2019-01-05 09:18] LABS: ALBUMIN 2.1 g/dl (3.4-5.0); BILIRUBIN,TOTAL 0.2 mg/dL (0.2-1); BLOOD UREA NITROGEN 31.5 mg/dL (7-18); CALCIUM 9.6 mg/dL (8.5-10.1); CREATININE 1.3 mg/dL (0.55-1.3); POTASSIUM 4.2 mmol/L (3.5-5.1); TOT PROT 5.9 g/dl (6.4-8.2)
[2019-01-05] MEDS: DULoxetine HCL 30 MG CAPSULE.DR PO SCH (09:28)
[2019-01-05] MEDS: lamoTRIgine 100 MG TABLET (FP) PO SCH (09:29)
[2019-01-05] MEDS: FOLIC ACID 1 MG TABLET (FP) PO SCH (09:29)
[2019-01-05] MEDS: clonazePAM 0.5 MG TABLET PO SCH (09:29)
[2019-01-05] MEDS: SOLIFENACIN SUCCINATE 5 MG TAB PO SCH (09:29)
[2019-01-05] MEDS: CEFUROXIME AXETIL 500 MG TABLET PO SCH (09:29)
[2019-01-05] MEDS: CLOTRIMAZOLE/BETAMET DIPROP 15 GM TUBE TP SCH (09:30)
[2019-01-05] MEDS: BRIMONIDINE TARTRATE 0.15% OPHTHALMIC 5 ML BOTTLE OS SCH (09:31)
[2019-01-05] MEDS: FLUTICASONE PROP 0.05% 16 GM NASAL SPRAY NS SCH (09:33)
[2019-01-05] MEDS: DORZOLAMIDE 2% HCL OPHTHALMIC SOLUTION 10 ML BOTTLE OS SCH (09:35)
[2019-01-05 09:43] VITALS: BP 109/59; PULSE 85; TEMP 98.7
[2019-01-05] MEDS: HYDROCORTISONE 2.5% TOPICAL CREAM 30 GM TUBE RC SCH (10:00)
--- NOTE | 2019-01-05 13:45 | PN ---
Progress Note (short form) - Note Progress Note: Patient to be picked up by transportation to return to SNF today. Examined prior to discharge and awake and alert, NAD. Denies chest pain or SOB. No acute events overnight. Lungs CTAB and CV RRR, abd NT ND (+) BS. No medical contraindication for discharge back to SNF. Problem List - Problems (1) KIRAN (acute kidney injury) Code(s): N17.9 - ACUTE KIDNEY FAILURE, UNSPECIFIED (2) Anemia Code(s): D64.9 - ANEMIA, UNSPECIFIED Qualifiers: Anemia type: iron deficiency (3) Hypotension Code(s): I95.9 - HYPOTENSION, UNSPECIFIED Qualifiers: Hypotension type: unspecified hypotension type Qualified Code(s): I95.9 - Hypotension, unspecified (4) Rash Code(s): R21 - RASH AND OTHER NONSPECIFIC SKIN ERUPTION (5) Toxic metabolic encephalopathy Code(s): G92 - TOXIC ENCEPHALOPATHY (6) UTI (urinary tract infection) Code(s): N39.0 - URINARY TRACT INFECTION, SITE NOT SPECIFIED Qualifiers: Urinary tract infection type: site unspecified Hematuria presence: without hematuria Qualified Code(s): N39.0 - Urinary tract infection, site not specified
== END 2019-01-05 12:53 | DRG 871 ==
LOC: JER 19:41 → JERBED 23:56 → JICU 12-29 04:27 → J5S 01-04 13:14
PROVIDERS: ADMIT Internal Medicine; ATTEND Family Medicine
PROC: 02H633Z Insertion of Infusion Device into Right Atrium, Percutaneous Approach (ICD-10-PCS; principal; 2018-12-28)
PROC: B244ZZZ Ultrasonography of Right Heart (ICD-10-PCS; 2018-12-28)
DX: A41.9 Sepsis, unspecified organism (principal); R65.21 Severe sepsis with septic shock; G93.41 Metabolic encephalopathy; N17.9 Acute kidney failure, unspecified; N39.0 Urinary tract infection, site not specified; Z68.41 Body mass index [BMI] 40.0-44.9, adult; Q96.9 Turner's syndrome, unspecified; Z93.3 Colostomy status; Z88.0 Allergy status to penicillin; F25.9 Schizoaffective disorder, unspecified; F60.3 Borderline personality disorder; K21.9 Gastro-esophageal reflux disease without esophagitis; G40.909 Epilepsy, unspecified, not intractable, without status epilepticus; Z85.038 Personal history of other malignant neoplasm of large intestine; R62.52 Short stature (child); E83.42 Hypomagnesemia; R21 Rash and other nonspecific skin eruption; E88.09 Other disorders of plasma-protein metabolism, not elsewhere classified; D64.9 Anemia, unspecified; E66.9 Obesity, unspecified; E11.9 Type 2 diabetes mellitus without complications; N18.3 Chronic kidney disease, stage 3 (moderate); F79 Unspecified intellectual disabilities; H05.20 Unspecified exophthalmos; H54.40 Blindness, one eye, unspecified eye; Z79.4 Long term (current) use of insulin; H40.9 Unspecified glaucoma; B96.1 Klebsiella pneumoniae [K. pneumoniae] as the cause of diseases classified elsewhere
CPT/HCPCS: 36415; 36600; 70480-TC; 71045-TC-FY; 76775-TC; 76856-TC; 80048; 80053; 81003; 82272; 82533; 82550; 82728; 82803; 82962; 83540; 83550; 83605; 83735; 84100; 84443; 84484; 85025; 85027; 85044; 85610; 85730; 87040; 87086; 87186; 93005; 93010; 93306-TC; 93971-TC; 94640; 97162-GP; 99285-25; J0131; J1439; J1644; J1756; J7030

== ENCOUNTER 2019-01-05 23:26 | Emergency (ER) | payer OTHER | END 2019-01-06 01:44 | LOC: JER 23:26 | DX: Z03.89 Encounter for observation for other suspected diseases and conditions ruled out (principal); E11.9 Type 2 diabetes mellitus without complications; G40.909 Epilepsy, unspecified, not intractable, without status epilepticus; N18.9 Chronic kidney disease, unspecified; K21.9 Gastro-esophageal reflux disease without esophagitis; F25.9 Schizoaffective disorder, unspecified; F60.3 Borderline personality disorder; Z85.038 Personal history of other malignant neoplasm of large intestine; Z93.3 Colostomy status; Q96.9 Turner's syndrome, unspecified; Q89.8 Other specified congenital malformations; R62.52 Short stature (child) ==